=== PATIENT | male | born 1975 | race Caucasian/White ===

== ENCOUNTER 2016-09-10 10:02 | Inpatient (IN) | payer OTHER ==
[2016-09-10 10:23] VITALS: BMI 26.6
--- NOTE | 2016-09-10 10:55 | HP ---
COWS - Scale Resting Pulse: 0= [place] 80 or Below Sweatin= Chills/Flushing Restless Observation: 0= Sits Still Pupil Size: 0= Normal to Room Light Bone or Joint Aches: 2= Severe Diffuse Aches Runny Nose/ Eye Tearin= Nasal Congestion GI Upset > 30mins: 3= Vomiting/Diarrhea Tremor Observation: 1= Tremor [place], Not Seen Yawning Observation: 1= 1-2x During Session Anxiety or Irritability: 2=Irritable/Anxious Goose Flesh Skin: 0=Smooth Skin COWS Score: 11 Admission ROS S - HPI Chief Complaint: I want to straighten out my life, I don't want to do drugs anymore. Allergies/Adverse Reactions: Allergies Allergy/AdvReac Type Severity Reaction Status Date / Time No Known Allergies Allergy Verified 09/10/16 10:52 History of Present Illness: 40 yo gentleman here for detox from heroin, first time in detox. Exam Limitations: Clinical Condition - Ebola screening Have you traveled outside of the country in the last 21 days: No Have you had contact with anyone from an Ebola affected area: No Have you been sick,other than usual withdrawal symptoms: No Do you have a fever: No - Review of Systems Constitutional: Malaise, Changes in sleep, Weakness EENT: reports: Nose Congestion Respiratory: reports: No Symptoms reported Cardiac: reports: No Symptoms Reported GI: reports: Nausea, Poor Appetite : reports: Dysuria Musculoskeletal: reports: Back Pain, Joint Pain, Muscle Pain Integumentary: reports: No Symptoms Reported Neuro: reports: Tremors Endocrine: reports: No Symptoms Reported Hematology: reports: No Symptoms Reported Psychiatric: reports: Judgement Intact, Mood/Affect Appropiate, Orientated x3, Anxious Other Systems: Reviewed and Negative Patient History - Patient Medical History Hx Anemia: No Hx Asthma: Yes Hx Chronic Obstructive Pulmonary Disease (COPD): No Hx Cancer: No Hx Cardiac Disorders: No Hx Congestive Heart Failure: No Hx Hypertension: No Hx Hypercholesterolemia: No Hx Pacemaker: No HX Cerebrovascular Accident: No Hx Seizures: No Hx Diabetes: No Hx Gastrointestinal Disorders: No Hx Liver Disease: No Hx Genitourinary Disorders: No Hx Sexually Transmitted Disorders: No Hx Renal Disease (ESRD): Yes (hx renal calculi) Hx Thyroid Disease: No Hx Human Immunodeficiency Virus (HIV): No Hx Hepatitis C: No Hx Depression: No Hx Suicide Attempt: No Hx Bipolar Disorder: No Hx Schizophrenia: No - Patient Surgical History Past Surgical History: No - PPD History Previous Implant?: Yes Documented Results: Negative w/o proof PPD to be Administered?: Yes - Reproductive History Patient is a Female of Child Bearing Age (11 -55 yrs old): No (male) - Smoking Cessation Smoking history: Current every day smoker Have you smoked in the past 12 months: Yes Aproximately how many cigarettes per day: 3 Hx Chewing Tobacco Use: No Initiated information on smoking cessation: Yes 'Breaking Loose' booklet given: 09/10/16 (give on floor) - Substance & Tx. History Hx Alcohol Use: No Hx Substance Use: Yes Substance Use Type: Heroin, Marijuana Hx Substance Use Treatment: No - Substances Abused Heroin Route: Inhalation Frequency: Daily Amount used: $20 Age of first use: 39 Date of Last Use: 09/09/16 Marijuana/Hashish Route: Smoking Frequency: 1-2 times per week Amount used: $20 Age of first use: 16 Date of Last Use: 09/06/16 Family Disease History - Family Disease History Family Disease History: [place]: Mother (alive, ), Other: Father (, etoh, drugs), Mother, Brother (1 - living, healthy), Sister (2 - living, ), Son (2 - living ,healthy), Daughter (1 -living , healthy) Admission Physical Exam S - Vital Signs Vital Signs: Vital Signs - 24 hr 09/10/16 10:14 Temperature 97.4 F L Pulse Rate 60 Respiratory 20 Rate Blood Pressure 139/85 - Physical General Appearance: Yes: Nourished, Appropriately Dressed, Moderate Distress, Anxious HEENTM: Yes: Hearing grossly Normal, Normocephalic, Normal Voice, Pharynx Normal Respiratory: Yes: Normal Breath Sounds, No Respiratory Distress Neck: Yes: No masses,lesions,Nodules, Supple Breast: Yes: Breast Exam Deferred Cardiology: Yes: Regular Rhythm, Regular Rate Abdominal: Yes: Soft Genitourinary: Yes: Within Normal Limits Back: Yes: Normal Inspection Musculoskeletal: Yes: full range of Motion, Gait Steady Extremities: Yes: Normal Inspection, Normal Range of Motion Neurological: Yes: Fully Oriented, Alert, Normal Mood/Affect, Normal Response Integumentary: Yes: Normal Color, Warm Lymphatic: Yes: Within Normal Limits - Diagnostic (1) Uncomplicated opioid dependence Current Visit: Yes Status: Chronic (2) Asthma Current Visit: Yes Status: Chronic Qualifiers: Asthma severity: mild intermittent Asthma complication type: uncomplicated Qualified Code(s): J45.20 - Mild intermittent asthma, uncomplicated (3) Cannabis dependence Current Visit: Yes Status: Chronic Cleared for Admission [facility] - Detox or Rehab [facility] Level of Care: Medically Managed Detox Regimen/Protocol: Methadone S Breath Alcohol Content Breath Alcohol Content: 0 Urine Drug Screen - Results Drug Screen Negative: No Urine Drug Screen Results: THC-Marijuana, OPI-Opiates
[2016-09-10] MEDS ORDERED: NICOTINE POLACRILEX 4 MG GUM BUC PRN (11:06)
[2016-09-10] MEDS ORDERED: MAGNESIUM HYDROX 2400MG/30ML ORAL SUSPENSION 30 ML CUP PO PRN (11:06)
[2016-09-10] MEDS ORDERED: IBUPROFEN 400 MG TABLET (FP) PO PRN (11:06)
[2016-09-10] MEDS ORDERED: diazePAM 5 MG TABLET PO PRN (11:06)
[2016-09-10] MEDS ORDERED: MENTHOL/PHENOL 1 EACH UD MM PRN (11:06)
[2016-09-10] MEDS ORDERED: ACETAMINOPHEN 325 MG TABLET (FP) PO PRN (11:06)
[2016-09-10] MEDS ORDERED: hydrOXYzine PAMOATE 50 MG CAPSULE (FP) PO PRN (11:06)
[2016-09-10] MEDS ORDERED: diphenhydrAMINE HCL 50 MG CAPSULE PO PRN (11:06)
[2016-09-10] MEDS ORDERED: MAGNESIUM CITRATE 300 ML BOTTLE PO PRN (11:06)
[2016-09-10] MEDS ORDERED: P-EPHED 60MG/TRIPROLIDI 2.5MG TABLET PO PRN (11:06)
[2016-09-10] MEDS ORDERED: guaiFENesin/D-METHORPHAN HB 10 ML UNIT-DOSE CUPS PO PRN (11:06)
[2016-09-10] MEDS ORDERED: MAG HYDROX/AL HYDROX/SIMETH 30 ML UNIT-DOSE CUP PO PRN (11:06)
[2016-09-10] MEDS ORDERED: LOPERAMIDE HCL 2 MG CAPSULE PO PRN (11:06)
[2016-09-10] MEDS ORDERED: METHADONE HCL 10 MG TABLET (FOR DETOX USE ONLY) PO ONE ×2 (12:30→23:00)
[2016-09-10] MEDS: ALBUTEROL SO4 6.7 GM HFA INHALER IH PRN ×2 (14:01→22:37)
[2016-09-10 18:21] LABS: URINE APPEARANCE CLEAR; URINE BILIRUBIN NEGATIVE (NEGATIVE); URINE BLOOD NEGATIVE (NEGATIVE); URINE COLOR YELLOW; URINE GLUCOSE (UA) NEGATIVE (NEGATIVE); URINE KETONE NEGATIVE (NEGATIVE); URINE LEUK ESTERASE NEGATIVE (NEGATIVE); URINE NITRITE NEGATIVE (NEGATIVE); URINE PROTEIN NEGATIVE (NEGATIVE); URINE UROBILINOGEN NEGATIVE mg/dL (0.2-1.0)
[2016-09-10] MEDS ORDERED: THIAMINE HCL 100 MG TABLET (FP) PO SCH (22:00)
[2016-09-10 23:08] VITALS: PULSE 72
--- NOTE | 2016-09-11 08:10 | EKG ---
Test Reason : Blood Pressure : / mmHG Vent. Rate : 064 BPM Atrial Rate : 064 BPM P-R Int : 136 ms QRS Dur : 094 ms QT Int : 402 ms P-R-T Axes : 068 056 032 degrees QTc Int : 414 ms NORMAL SINUS RHYTHM MINIMAL VOLTAGE CRITERIA FOR LVH, MAY BE NORMAL VARIANT BORDERLINE ECG NO PREVIOUS ECGS AVAILABLE Confirmed by CHEIKH MOORE MD ([id number]) on 09/11/2016 8:09:58 AM Referred By: Confirmed By:CHEIKH MOORE MD
[2016-09-11 09:22] LABS: MCH 30.7 pg (25.7-33.7); MCHC 33.1 g/dl (32.0-35.9); MEAN CELL VOLUME 92.9 fl (80-96); MEAN PLT VOLUME 9.1 fl (7.5-11.1); PLATELET COUNT 196 K/MM3 (134-434); RDW 13.6 % (11.9-15.9)
[2016-09-11 09:59] LABS: ALBUMIN 3.3 g/dl (3.4-5.0); ALK PHOS 60 U/L (45-117); ANION GAP 6 (8-16); BILIRUBIN,TOTAL 0.5 mg/dL (0.2-1.0); CALCIUM 8.6 mg/dL (8.5-10.1); CO2 27 mmol/L (21-32); CREATININE 0.9 mg/dL (0.7-1.3); GLUCOSE,RANDOM 84 mg/dL (74-106); SGOT/AST 11 U/L (15-37); SGPT/ALT 21 U/L (12-78); TOT PROT 6.2 g/dl (6.4-8.2)
[2016-09-11] MEDS ORDERED: PRENATAL VITAMINS W/ FOLIC ACID TABLET (FP) PO SCH (10:00)
[2016-09-11] MEDS ORDERED: METHADONE HCL 10 MG TABLET (FOR DETOX USE ONLY) PO ONE (10:00)
[2016-09-11 10:28] VITALS: BP 129/80; TEMP 98.2
--- NOTE | 2016-09-11 11:15 | PN ---
S COWS - Scale Resting Pulse: 0= [place] 80 or Below Sweatin= Chills/Flushing Restless Observation: 3= Extraneous Movement Pupil Size: 2= Moderately Dilated Bone or Joint Aches: 2= Severe Diffuse Aches Runny Nose/ Eye Tearin= Runny Nose/Eyes GI Upset > 30mins: 2= Nausea/Diarrhea Tremor Observation of Outstretched Hands: 2= Slight Tremor Visible Yawning Observation: 2= >3x During Session Anxiety or Irritability: 2=Irritable/Anxious Goose Flesh Skin: 0=Smooth Skin COWS Score: 18 BHS Progress Note (SOAP) Subjective: ALERT,IRRITABLE,ANXIOUS,INTERRUPTED SLEEP,TREMOR,PAIN IN THE BODY AND BACK Objective: 09/11/16 11:12 Vital Signs Temperature 98.2 F 09/11/16 10:28 Pulse Rate 72 09/11/16 10:28 Respiratory Rate 16 09/11/16 10:28 Blood Pressure 129/80 09/11/16 10:28 O2 Sat by Pulse Oximetry (%) EKG NSR Laboratory Last Values WBC 9.0 K/mm3 (4.0-10.0) 09/11/16 07:40 RBC 4.39 M/mm3 (4.00-5.60) 09/11/16 07:40 Hgb 13.5 GM/dL (11.7-16.9) 09/11/16 07:40 Hct 40.8 % (35.4-49) 09/11/16 07:40 MCV 92.9 fl (80-96) 09/11/16 07:40 MCH 30.7 pg (25.7-33.7) 09/11/16 07:40 MCHC 33.1 g/dl (32.0-35.9) 09/11/16 07:40 RDW 13.6 % (11.9-15.9) 09/11/16 07:40 Plt Count 196 K/MM3 (134-434) 09/11/16 07:40 MPV 9.1 fl (7.5-11.1) 09/11/16 07:40 Sodium 139 mmol/L (136-145) 09/11/16 07:40 Potassium 4.0 mmol/L (3.5-5.1) 09/11/16 07:40 Chloride 106 mmol/L (98-107) 09/11/16 07:40 Carbon Dioxide 27 mmol/L (21-32) 09/11/16 07:40 Anion Gap 6 (8-16) L 09/11/16 07:40 BUN 15 mg/dL (7-18) 09/11/16 07:40 Creatinine 0.9 mg/dL (0.7-1.3) 09/11/16 07:40 Creat Clearance w eGFR > 60 (>60) 09/11/16 07:40 Random Glucose 84 mg/dL (74-106) 09/11/16 07:40 Calcium 8.6 mg/dL (8.5-10.1) 09/11/16 07:40 Total Bilirubin 0.5 mg/dL (0.2-1.0) 09/11/16 07:40 AST 11 U/L (15-37) L 09/11/16 07:40 ALT 21 U/L (12-78) 09/11/16 07:40 Alkaline Phosphatase 60 U/L (45-117) 09/11/16 07:40 Total Protein 6.2 g/dl (6.4-8.2) L 09/11/16 07:40 Albumin 3.3 g/dl (3.4-5.0) L 09/11/16 07:40 Urine Color Yellow 09/10/16 14:27 Urine Appearance Clear 09/10/16 14:27 Urine pH 5.0 (5.0-8.0) 09/10/16 14:27 Ur Specific [place] >= 1.030 (1.005-1.025) H 09/10/16 14:27 Urine Protein Negative (NEGATIVE) 09/10/16 14:27 Urine Glucose (UA) Negative (NEGATIVE) 09/10/16 14:27 Urine Ketones Negative (NEGATIVE) 09/10/16 14:27 Urine Blood Negative (NEGATIVE) 09/10/16 14:27 Urine Nitrite Negative (NEGATIVE) 09/10/16 14:27 Urine Bilirubin Negative (NEGATIVE) 09/10/16 14:27 Urine Urobilinogen Negative mg/dL (0.2-1.0) 09/10/16 14:27 Ur Leukocyte Esterase Negative (NEGATIVE) 09/10/16 14:27 Assessment: 09/11/16 11:14 WITHDRAWAL SYMPTOM Plan: CONTINUE DETOX
--- NOTE | 2016-09-11 11:18 | DS ---
[facility] Detox Discharge Summary Admission Date: 09/10/16 Discharge Date: 09/11/16 - History Present History: Cannabis Dependence, Opioid Dependence Additional Comments: PATIENT DID NOT WANT TO COMPLETE TREATMENT,SEEN BY COUNSELOR,SIGNED RELEASE AMA Pertinent Past History: ASTHMA - Physical Exam Results Vital Signs: Vital Signs Temperature 98.2 F 09/11/16 10:28 Pulse Rate 72 09/11/16 10:28 Respiratory Rate 16 09/11/16 10:28 Blood Pressure 129/80 09/11/16 10:28 O2 Sat by Pulse Oximetry (%) Pertinent Admission Physical Exam Findings: WITHDRAWAL SYMPTOM - Medication Discharge Medications: Ambulatory Orders Albuterol Sulfate Inhaler - [Ventolin Hfa Inhaler -] 2 inh PO Q4H PRN 09/10/16 - Diagnosis (1) Asthma Current Visit: Yes Status: Chronic Qualifiers: Asthma severity: mild intermittent Asthma complication type: uncomplicated Qualified Code(s): J45.20 - Mild intermittent asthma, uncomplicated (2) Cannabis dependence Current Visit: Yes Status: Chronic (3) Uncomplicated opioid dependence Current Visit: Yes Status: Chronic - AMA Did Patient Leave Against Medical Advice: Yes
[2016-09-11 12:51] LABS: HIV 1 & 2 AB NEGATIVE; HIV 1 AGp24 NEGATIVE
[2016-09-12] MEDS ORDERED: METHADONE HCL 5 MG TABLET (FOR DETOX USE ONLY) PO ONE (10:00)
[2016-09-13] MEDS ORDERED: METHADONE HCL 5 MG TABLET (FOR DETOX USE ONLY) PO ONE (10:00)
[2016-09-14] MEDS ORDERED: METHADONE HCL 10 MG TABLET (FOR DETOX USE ONLY) PO ONE (10:00)
[2016-09-15] MEDS ORDERED: METHADONE HCL 5 MG TABLET (FOR DETOX USE ONLY) PO ONE (06:00)
== END 2016-09-11 11:38 | disposition left against medical advice (07) | DRG 770 ==
LOC: YASAS 10:02 → Y6N 11:39
PROVIDERS: ADMIT Internal Medicine; ATTEND Internal Medicine
PROC: HZ2ZZZZ Detoxification Services for Substance Abuse Treatment (ICD-10-PCS; principal; 2016-09-10)
DX: F11.23 Opioid dependence with withdrawal (principal); F12.20 Cannabis dependence, uncomplicated; F17.210 Nicotine dependence, cigarettes, uncomplicated; J45.20 Mild intermittent asthma, uncomplicated; Z87.442 Personal history of urinary calculi
CPT/HCPCS: 36415; 80053; 81003; 85027; 86593; 86803; 87389; 93005; 93010

== ENCOUNTER 2017-02-19 11:12 | Inpatient (IN) | payer OTHER ==
[2017-02-19 13:06] VITALS: BMI 25.1
--- NOTE | 2017-02-19 13:41 | HP ---
COWS - Scale Resting Pulse: 2= [place] 101-120 Sweatin=Flushed/Facial Moisture Restless Observation: 3= Extraneous Movement Pupil Size: 2= Moderately Dilated Bone or Joint Aches: 2= Severe Diffuse Aches Runny Nose/ Eye Tearin= Runny Nose/Eyes GI Upset > 30mins: 3= Vomiting/Diarrhea Tremor Observation: 2= Slight Tremor Visible Yawning Observation: 2= >3x During Session Anxiety or Irritability: 2=Irritable/Anxious Goose Flesh Skin: 0=Smooth Skin COWS Score: 22 Admission ROS S - HPI Chief Complaint: I NEED HELP TO STOP USING HEROIN Allergies/Adverse Reactions: Allergies Allergy/AdvReac Type Severity Reaction Status Date / Time No Known Allergies Allergy Verified 09/10/16 10:52 History of Present Illness: THIS 41 YEARS OLD MALE WITH HEROIN DEPENDENCE,WITHDRAWAL SYMPTOM,SEEKING DETOX, LAST TREATMENT 09/10/16 TO 09/11/16 NOT COMPLETED SYNCOPE WEIGHT LOSS NO SIGNIFICANT PERIOD OF SOBRIETY Exam Limitations: No Limitations - Ebola screening Have you traveled outside of the country in the last 21 days: No Have you had contact with anyone from an Ebola affected area: No Have you been sick,other than usual withdrawal symptoms: No Do you have a fever: No - Review of Systems Constitutional: Diaphoresis, Loss of Appetite, Malaise, Night Sweats, Changes in sleep, Weakness, Unintentional Wgt. Loss EENT: reports: Tearing, Nose Congestion Respiratory: reports: No Symptoms reported Cardiac: reports: Palpitations GI: reports: Diarrhea, Nausea, Vomiting, Abdominal cramping Musculoskeletal: reports: Back Pain, Joint Pain, Muscle Pain, Joint Stiffness Integumentary: reports: Dryness Neuro: reports: Headache, Tremors Endocrine: reports: No Symptoms Reported Hematology: reports: No Symptoms Reported Psychiatric: reports: No Sypmtoms Reported Patient History - Patient Medical History Hx Anemia: No Hx Asthma: Yes Hx Chronic Obstructive Pulmonary Disease (COPD): No Hx Cancer: No Hx Cardiac Disorders: No Hx Congestive Heart Failure: No Hx Hypertension: No Hx Hypercholesterolemia: No Hx Pacemaker: No HX Cerebrovascular Accident: No Hx Seizures: No Hx Diabetes: No Hx Gastrointestinal Disorders: No Hx Liver Disease: No Hx Genitourinary Disorders: No Hx Sexually Transmitted Disorders: No Hx Renal Disease (ESRD): Yes (hx renal calculi S/P LITHOTRYSY 2016) Hx Thyroid Disease: No Hx Human Immunodeficiency Virus (HIV): No Hx Hepatitis C: No Hx Depression: No Hx Suicide Attempt: No Hx Bipolar Disorder: No Hx Schizophrenia: No Other Medical History: NO SUICIDL,NO HOMICIDAL - Patient Surgical History Past Surgical History: No - PPD History Previous Implant?: Yes Documented Results: Negative w/o proof Date: 09/12/16 PPD to be Administered?: Yes - Smoking Cessation Smoking history: Current every day smoker Have you smoked in the past 12 months: Yes Aproximately how many cigarettes per day: 3 Hx Chewing Tobacco Use: No Initiated information on smoking cessation: Yes 'Breaking Loose' booklet given: 02/19/17 - Substance & Tx. History Hx Alcohol Use: No Hx Substance Use: Yes Substance Use Type: Heroin, Marijuana Hx Substance Use Treatment: Yes (09/10/16 TO 09/11/16) - Substances Abused Heroin Route: Inhalation Frequency: Daily Amount used: 2BAGS Age of first use: 39 Date of Last Use: 02/18/17 Marijuana/Hashish Route: Smoking Frequency: 1-2 times per week Amount used: 10$ Age of first use: 10 Date of Last Use: 02/16/17 Family Disease History - Family Disease History Family Disease History: [place]: Mother (alive, ), Other: Father (, etoh, drugs), Mother, Brother (1 - living, healthy), Sister (2 - living, ), Son (2 - living ,healthy), Daughter (1 -living , healthy) Admission Physical Exam S - Vital Signs Vital Signs: Vital Signs - 24 hr 02/19/17 13:05 Temperature 98.8 F Pulse Rate 108 H Respiratory 20 Rate Blood Pressure 151/91 - Physical General Appearance: Yes: Moderate Distress, Tremorous, Irritable, Sweating, Anxious HEENTM: Yes: Normal ENT Inspection, Pharynx Normal, Pale Conjunctivae L Respiratory: Yes: Lungs Clear, Normal Breath Sounds, No Respiratory Distress Neck: Yes: Within Normal Limits Breast: Yes: Within Normal Limits Cardiology: Yes: Within Normal Limits, Regular Rhythm, Regular Rate, S1, S2 Abdominal: Yes: Within Normal Limits, Normal Bowel Sounds Genitourinary: Yes: Within Normal Limits Back: Yes: Within Normal Limits Musculoskeletal: Yes: Back pain, Joint Stiffness, Muscle Pain Extremities: Yes: Within Normal Limits, Normal Range of Motion, Tremors Neurological: 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: 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, Fully Oriented, Alert, Motor Strength 5/5 Integumentary: Yes: Dry Lymphatic: Yes: Within Normal Limits - Diagnostic (1) Opioid dependence with withdrawal Current Visit: Yes Status: Acute (2) Asthma Current Visit: No Status: Chronic Qualifiers: Asthma severity: mild intermittent Asthma complication type: uncomplicated Qualified Code(s): J45.20 - Mild intermittent asthma, uncomplicated (3) Cannabis dependence Current Visit: No Status: Chronic (4) Weight loss Current Visit: Yes Status: Acute Cleared for Admission [facility] - Detox or Rehab [facility] Level of Care: Medically Managed Detox Regimen/Protocol: Methadone [facility] Breath Alcohol Content Breath Alcohol Content: 0 Urine Drug Screen - Results Drug Screen Negative: No Urine Drug Screen Results: THC-Marijuana, OPI-Opiates
[2017-02-19] MEDS ORDERED: P-EPHED 60MG/TRIPROLIDI 2.5MG TABLET PO PRN (13:50)
[2017-02-19] MEDS ORDERED: METHADONE HCL 10 MG TABLET (FOR DETOX USE ONLY) PO ONE ×2 (13:50→23:00)
[2017-02-19] MEDS ORDERED: MENTHOL/PHENOL 1 EACH UD MM PRN (13:50)
[2017-02-19] MEDS ORDERED: LOPERAMIDE HCL 2 MG CAPSULE PO PRN (13:50)
[2017-02-19] MEDS ORDERED: ACETAMINOPHEN 325 MG TABLET (FP) PO PRN (13:50)
[2017-02-19] MEDS ORDERED: IBUPROFEN 400 MG TABLET (FP) PO PRN (13:50)
[2017-02-19] MEDS ORDERED: MAGNESIUM CITRATE 300 ML BOTTLE PO PRN (13:50)
[2017-02-19] MEDS ORDERED: MAGNESIUM HYDROX 2400MG/30ML ORAL SUSPENSION 30 ML CUP PO PRN (13:50)
[2017-02-19] MEDS ORDERED: guaiFENesin/D-METHORPHAN HB 10 ML UNIT-DOSE CUPS PO PRN (13:50)
[2017-02-19] MEDS ORDERED: ALBUTEROL SO4 18 GM HFA INHALER IH PRN (13:54)
[2017-02-19] MEDS: diazePAM 5 MG TABLET PO PRN ×2 (15:47→22:03)
[2017-02-19] MEDS ORDERED: cloNIDine HCL 0.1 MG TABLET PO ONE (15:48)
[2017-02-19 16:30] LABS: URINE APPEARANCE SLCLOUDY; URINE BILIRUBIN NEGATIVE (NEGATIVE); URINE BLOOD NEGATIVE (NEGATIVE); URINE COLOR AMBER; URINE GLUCOSE (UA) NEGATIVE (NEGATIVE); URINE KETONE TRACE (NEGATIVE); URINE LEUK ESTERASE NEGATIVE (NEGATIVE); URINE NITRITE NEGATIVE (NEGATIVE)
[2017-02-19 16:33] LABS: URINE PROTEIN 1+ (NEGATIVE)
[2017-02-19 16:45] LABS: EPI CELLS RARE /HPF (FEW); URINE MUCUS MANY
[2017-02-19] MEDS: MAG HYDROX/AL HYDROX/SIMETH 30 ML UNIT-DOSE CUP PO PRN (20:20)
[2017-02-19] MEDS: cloNIDine HCL 0.1 MG TABLET PO SCH (22:03)
[2017-02-19] MEDS: THIAMINE HCL 100 MG TABLET (FP) PO SCH (22:03)
[2017-02-20] MEDS: diazePAM 5 MG TABLET PO PRN ×3 (06:25→23:45)
[2017-02-20 09:59] LABS: HEMATOCRIT 43.8 % (35.4-49); HEMOGLOBIN 14.2 GM/dL (11.7-16.9); MCH 30.1 pg (25.7-33.7); MCHC 32.5 g/dl (32.0-35.9); MEAN CELL VOLUME 92.9 fl (80-96); MEAN PLT VOLUME 8.3 fl (7.5-11.1); PLATELET COUNT 321 K/MM3 (134-434); RBC 4.72 M/mm3 (4.00-5.60); RDW 13.5 % (11.9-15.9); WHITE BLOOD COUNT 9.1 K/mm3 (4.0-10.0)
[2017-02-20] MEDS ORDERED: METHADONE HCL 10 MG TABLET (FOR DETOX USE ONLY) PO ONE (10:00)
[2017-02-20] MEDS: cloNIDine HCL 0.1 MG TABLET PO SCH ×2 (10:14→22:06)
[2017-02-20] MEDS: PRENATAL VITAMINS W/ FOLIC ACID TABLET (FP) PO SCH (10:14)
[2017-02-20 10:24] LABS: ANION GAP 9 (8-16); CHLORIDE 98 mmol/L (98-107); CO2 28 mmol/L (21-32); SODIUM 135 mmol/L (136-145)
[2017-02-20 10:30] LABS: ALBUMIN 3.7 g/dl (3.4-5.0); ALK PHOS 80 U/L (45-117); BILIRUBIN,TOTAL 0.7 mg/dL (0.2-1.0); BLOOD UREA NITROGEN 20 mg/dL (7-18); CREATININE 1.1 mg/dL (0.7-1.3); GLUCOSE,RANDOM 97 mg/dL (74-106); SGOT/AST 12 U/L (15-37); SGPT/ALT 21 U/L (12-78); TOT PROT 7.2 g/dl (6.4-8.2)
--- NOTE | 2017-02-20 10:38 | PN ---
BHS COWS - Scale Resting Pulse: 0= [place] 80 or Below Sweatin= Chills/Flushing Restless Observation: 3= Extraneous Movement Pupil Size: 1= Pupils >than Normal Bone or Joint Aches: 2= Severe Diffuse Aches Runny Nose/ Eye Tearin= Runny Nose/Eyes GI Upset > 30mins: 2= Nausea/Diarrhea Tremor Observation of Outstretched Hands: 2= Slight Tremor Visible Yawning Observation: 1= 1-2x During Session Anxiety or Irritability: 2=Irritable/Anxious Goose Flesh Skin: 0=Smooth Skin COWS Score: 16 S Progress Note (SOAP) Subjective: ALERT,IRRITABLE,ANXIOUS,INTERRUPTED SLEEP,TREMOR,PAIN IN THE BODY AND BACK Objective: 02/20/17 10:39 Vital Signs Temperature 97.7 F 02/20/17 06:00 Pulse Rate 69 02/20/17 06:00 Respiratory Rate 18 02/20/17 06:00 Blood Pressure 129/80 02/20/17 06:00 O2 Sat by Pulse Oximetry (%) EKG NSR,LVH NO CHEST PAIN,NO SO,NO DIZZINESS 02/20/17 10:40 Laboratory Last Values WBC 9.1 K/mm3 (4.0-10.0) 02/20/17 07:30 RBC 4.72 M/mm3 (4.00-5.60) 02/20/17 07:30 Hgb 14.2 GM/dL (11.7-16.9) 02/20/17 07:30 Hct 43.8 % (35.4-49) 02/20/17 07:30 MCV 92.9 fl (80-96) 02/20/17 07:30 MCH 30.1 pg (25.7-33.7) 02/20/17 07:30 MCHC 32.5 g/dl (32.0-35.9) 02/20/17 07:30 RDW 13.5 % (11.9-15.9) 02/20/17 07:30 Plt Count 321 K/MM3 (134-434) D 02/20/17 07:30 MPV 8.3 fl (7.5-11.1) 02/20/17 07:30 Urine Color [place] 02/19/17 15:43 Urine Appearance Slcloudy 02/19/17 15:43 Urine pH 5.0 (5.0-8.0) 02/19/17 15:43 Ur Specific [place] 1.029 (1.001-1.035) 02/19/17 15:43 Urine Protein 1+ (NEGATIVE) H 02/19/17 15:43 Urine Glucose (UA) Negative (NEGATIVE) 02/19/17 15:43 Urine Ketones Trace (NEGATIVE) H 02/19/17 15:43 Urine Blood Negative (NEGATIVE) 02/19/17 15:43 Urine Nitrite Negative (NEGATIVE) 02/19/17 15:43 Urine Bilirubin Negative (NEGATIVE) 02/19/17 15:43 Urine Urobilinogen 2.0 mg/dL (0.2-1.0) 02/19/17 15:43 Ur Leukocyte Esterase Negative (NEGATIVE) 02/19/17 15:43 Urine WBC (Auto) 2 /hpf (3-5) 02/19/17 15:43 Urine RBC (Auto) 6 /hpf (0-3) 02/19/17 15:43 Ur Epithelial Cells Rare /HPF (FEW) 02/19/17 15:43 Urine Mucus Many 02/19/17 15:43 02/20/17 10:41 LABS PENDING Assessment: 02/20/17 10:41 WITHDRAWAL SYMPTOM Plan: CONTINUE DETOX
--- NOTE | 2017-02-20 10:38 | EKG ---
Test Reason : Blood Pressure : / mmHG Vent. Rate : 092 BPM Atrial Rate : 092 BPM P-R Int : 128 ms QRS Dur : 088 ms QT Int : 350 ms P-R-T Axes : 061 060 023 degrees QTc Int : 432 ms NORMAL SINUS RHYTHM POSSIBLE LEFT ATRIAL ENLARGEMENT LEFT VENTRICULAR HYPERTROPHY ABNORMAL ECG WHEN COMPARED WITH ECG OF 10-SEP-2016 12:20, NO SIGNIFICANT CHANGE WAS FOUND Confirmed by WERNER VALENZUELA MD ([id number]) on 02/20/2017 10:38:29 AM Referred By: Confirmed By:WERNER VALENZUELA MD
[2017-02-20] MEDS: MAG HYDROX/AL HYDROX/SIMETH 30 ML UNIT-DOSE CUP PO PRN (14:16)
[2017-02-20] MEDS: THIAMINE HCL 100 MG TABLET (FP) PO SCH (22:06)
[2017-02-21] MEDS ORDERED: METHADONE HCL 5 MG TABLET (FOR DETOX USE ONLY) PO ONE (10:00)
[2017-02-21] MEDS: PRENATAL VITAMINS W/ FOLIC ACID TABLET (FP) PO SCH (10:08)
[2017-02-21] MEDS: cloNIDine HCL 0.1 MG TABLET PO SCH ×2 (10:08→22:13)
[2017-02-21] MEDS: diazePAM 5 MG TABLET PO PRN ×3 (11:04→22:13)
--- NOTE | 2017-02-21 11:14 | PN ---
BHS COWS - Scale Resting Pulse: 0= [place] 80 or Below Sweatin= Chills/Flushing Restless Observation: 3= Extraneous Movement Pupil Size: 0= Normal to Room Light Bone or Joint Aches: 1= Mild Discomfort Runny Nose/ Eye Tearin= None GI Upset > 30mins: 0= None Tremor Observation of Outstretched Hands: 2= Slight Tremor Visible Yawning Observation: 2= >3x During Session Anxiety or Irritability: 1=Feels Anxious/Irritable Goose Flesh Skin: 3=Piloerection COWS Score: 13 BHS Progress Note (SOAP) Subjective: Chills, tremors, anxious, tire and sleepiness Objective: 02/21/17 11:13 Last Vital Signs Temp Pulse Resp BP Pulse Ox 98.2 F 86 18 133/68 02/21/17 09:54 02/21/17 09:54 02/21/17 09:54 02/21/17 09:54 Laboratory Last Values WBC 9.1 K/mm3 (4.0-10.0) 02/20/17 07:30 RBC 4.72 M/mm3 (4.00-5.60) 02/20/17 07:30 Hgb 14.2 GM/dL (11.7-16.9) 02/20/17 07:30 Hct 43.8 % (35.4-49) 02/20/17 07:30 MCV 92.9 fl (80-96) 02/20/17 07:30 MCH 30.1 pg (25.7-33.7) 02/20/17 07:30 MCHC 32.5 g/dl (32.0-35.9) 02/20/17 07:30 RDW 13.5 % (11.9-15.9) 02/20/17 07:30 Plt Count 321 K/MM3 (134-434) D 02/20/17 07:30 MPV 8.3 fl (7.5-11.1) 02/20/17 07:30 Sodium 135 mmol/L (136-145) L 02/20/17 07:30 Potassium 4.0 mmol/L (3.5-5.1) 02/20/17 07:30 Chloride 98 mmol/L (98-107) 02/20/17 07:30 Carbon Dioxide 28 mmol/L (21-32) 02/20/17 07:30 Anion Gap 9 (8-16) 02/20/17 07:30 BUN 20 mg/dL (7-18) H D 02/20/17 07:30 Creatinine 1.1 mg/dL (0.7-1.3) D 02/20/17 07:30 Creat Clearance w eGFR > 60 (>60) 02/20/17 07:30 Random Glucose 97 mg/dL (74-106) 02/20/17 07:30 Calcium 9.0 mg/dL (8.5-10.1) 02/20/17 07:30 Total Bilirubin 0.7 mg/dL (0.2-1.0) D 02/20/17 07:30 AST 12 U/L (15-37) L 02/20/17 07:30 ALT 21 U/L (12-78) 02/20/17 07:30 Alkaline Phosphatase 80 U/L (45-117) D 02/20/17 07:30 Total Protein 7.2 g/dl (6.4-8.2) 02/20/17 07:30 Albumin 3.7 g/dl (3.4-5.0) 02/20/17 07:30 Urine Color [place] 02/19/17 15:43 Urine Appearance Slcloudy 02/19/17 15:43 Urine pH 5.0 (5.0-8.0) 02/19/17 15:43 Ur Specific [place] 1.029 (1.001-1.035) 02/19/17 15:43 Urine Protein 1+ (NEGATIVE) H 02/19/17 15:43 Urine Glucose (UA) Negative (NEGATIVE) 02/19/17 15:43 Urine Ketones Trace (NEGATIVE) H 02/19/17 15:43 Urine Blood Negative (NEGATIVE) 02/19/17 15:43 Urine Nitrite Negative (NEGATIVE) 02/19/17 15:43 Urine Bilirubin Negative (NEGATIVE) 02/19/17 15:43 Urine Urobilinogen 2.0 mg/dL (0.2-1.0) 02/19/17 15:43 Ur Leukocyte Esterase Negative (NEGATIVE) 02/19/17 15:43 Urine WBC (Auto) 2 /hpf (3-5) 02/19/17 15:43 Urine RBC (Auto) 6 /hpf (0-3) 02/19/17 15:43 Ur Epithelial Cells Rare /HPF (FEW) 02/19/17 15:43 Urine Mucus Many 02/19/17 15:43 RPR Titer Nonreactive (NONREACTIVE) 02/20/17 07:30 labs noted Assessment: 02/21/17 11:14 withdrawal symptoms Plan: Continue detox increase fluids continue to monitor
[2017-02-21] MEDS: MAG HYDROX/AL HYDROX/SIMETH 30 ML UNIT-DOSE CUP PO PRN (21:03)
[2017-02-21] MEDS: THIAMINE HCL 100 MG TABLET (FP) PO SCH (22:13)
[2017-02-22] MEDS: diazePAM 5 MG TABLET PO PRN ×2 (05:25→10:09)
--- NOTE | 2017-02-22 09:37 | PN ---
BHS Progress Note (SOAP) Subjective: interrupted sleep, sweats, Objective: 02/22/17 09:35 Last Vital Signs Temp Pulse Resp BP Pulse Ox 97.7 F 67 18 114/78 02/22/17 06:59 02/22/17 06:59 02/22/17 06:59 02/22/17 06:59 Laboratory Tests 02/19/17 02/20/17 02/20/17 15:43 07:30 07:30 WBC 9.1 RBC 4.72 Hgb 14.2 Hct 43.8 MCV 92.9 MCH 30.1 MCHC 32.5 RDW 13.5 Plt Count 321 D MPV 8.3 Sodium 135 L Potassium 4.0 Chloride 98 Carbon Dioxide 28 Anion Gap 9 BUN 20 H D Creatinine 1.1 D Creat Clearance w eGFR > 60 Random Glucose 97 Calcium 9.0 Total Bilirubin 0.7 D AST 12 L ALT 21 Alkaline Phosphatase 80 D Total Protein 7.2 Albumin 3.7 Urine Color [place] Urine Appearance Slcloudy Urine pH 5.0 Ur Specific [place] 1.029 Urine Protein 1+ H Urine Glucose (UA) Negative Urine Ketones Trace H Urine Blood Negative Urine Nitrite Negative Urine Bilirubin Negative Urine Urobilinogen 2.0 Ur Leukocyte Esterase Negative Urine WBC (Auto) 2 Urine RBC (Auto) 6 Ur Epithelial Cells Rare Urine Mucus Many RPR Titer 02/20/17 07:30 WBC RBC Hgb Hct MCV MCH MCHC RDW Plt Count MPV Sodium Potassium Chloride Carbon Dioxide Anion Gap BUN Creatinine Creat Clearance w eGFR Random Glucose Calcium Total Bilirubin AST ALT Alkaline Phosphatase Total Protein Albumin Urine Color Urine Appearance Urine pH Ur Specific [place] Urine Protein Urine Glucose (UA) Urine Ketones Urine Blood Urine Nitrite Urine Bilirubin Urine Urobilinogen Ur Leukocyte Esterase Urine WBC (Auto) Urine RBC (Auto) Ur Epithelial Cells Urine Mucus RPR Titer Nonreactive pt aox3 in nad ambulating Assessment: 02/22/17 09:36 withdrawal sx's Plan: cont. detox increase fluids
[2017-02-22] MEDS ORDERED: METHADONE HCL 5 MG TABLET (FOR DETOX USE ONLY) PO ONE (10:00)
[2017-02-22] MEDS: PRENATAL VITAMINS W/ FOLIC ACID TABLET (FP) PO SCH (10:09)
[2017-02-22] MEDS: cloNIDine HCL 0.1 MG TABLET PO SCH ×2 (10:09→22:16)
[2017-02-22] MEDS: THIAMINE HCL 100 MG TABLET (FP) PO SCH (22:16)
--- NOTE | 2017-02-23 09:44 | PN ---
BHS Progress Note (SOAP) Subjective: insomnia anxiety Objective: 02/23/17 10:36 Vital Signs Temperature 98.2 F 02/23/17 09:16 Pulse Rate 83 02/23/17 09:16 Respiratory Rate 18 02/23/17 09:16 Blood Pressure 117/75 02/23/17 09:16 O2 Sat by Pulse Oximetry (%) aaox3 ambulating no acute distress Assessment: 02/23/17 10:37 withdrawal sx Plan: continue detox increase fluids benadryl 50mg x one
[2017-02-23] MEDS ORDERED: METHADONE HCL 10 MG TABLET (FOR DETOX USE ONLY) PO ONE (10:00)
[2017-02-23] MEDS: cloNIDine HCL 0.1 MG TABLET PO SCH ×2 (10:11→22:09)
[2017-02-23] MEDS: PRENATAL VITAMINS W/ FOLIC ACID TABLET (FP) PO SCH (10:11)
[2017-02-23] MEDS ORDERED: diphenhydrAMINE HCL 50 MG CAPSULE PO PRN (11:23)
[2017-02-23] MEDS: THIAMINE HCL 100 MG TABLET (FP) PO SCH (22:09)
[2017-02-24] MEDS ORDERED: METHADONE HCL 5 MG TABLET (FOR DETOX USE ONLY) PO ONE (06:00)
[2017-02-24 06:29] VITALS: BP 111/57
--- NOTE | 2017-02-24 08:19 | DS ---
[facility] Detox Discharge Summary Admission Date: 02/19/17 Discharge Date: 02/24/17 - History Present History: Cannabis Dependence, Opioid Dependence - Physical Exam Results Vital Signs: Vital Signs Temperature 97.3 F L 02/24/17 06:00 Pulse Rate 70 02/24/17 06:00 Respiratory Rate 18 02/24/17 06:00 Blood Pressure 111/57 02/24/17 06:00 O2 Sat by Pulse Oximetry (%) - Treatment Hospital Course: Detox Protocol Followed, Detoxed Safely, Responded well, Discharged Condition Good - Medication Discharge Medications: Ambulatory Orders Albuterol Sulfate Inhaler - [Ventolin Hfa Inhaler -] 2 inh PO Q4H PRN 09/10/16 - Diagnosis (1) Opioid dependence with withdrawal Current Visit: Yes Status: Chronic (2) Weight loss Current Visit: Yes Status: Acute (3) Asthma Current Visit: No Status: Chronic Qualifiers: Asthma severity: mild Asthma persistence: intermittent Asthma complication type: uncomplicated Qualified Code(s): J45.20 - Mild intermittent asthma, uncomplicated (4) Cannabis dependence Current Visit: Yes Status: Chronic - AMA Did Patient Leave Against Medical Advice: No
[2017-02-24] MEDS: cloNIDine HCL 0.1 MG TABLET PO SCH (10:01)
[2017-02-24] MEDS: PRENATAL VITAMINS W/ FOLIC ACID TABLET (FP) PO SCH (10:01)
[2017-02-24 10:42] VITALS: PULSE 105; TEMP 98.8
== END 2017-02-24 10:15 | disposition home or self-care (01) | DRG 773 ==
LOC: YASAS 11:12 → Y6N 14:25
PROVIDERS: ADMIT Internal Medicine; ATTEND Internal Medicine
PROC: HZ2ZZZZ Detoxification Services for Substance Abuse Treatment (ICD-10-PCS; principal; 2017-02-19)
DX: F11.23 Opioid dependence with withdrawal (principal); F12.20 Cannabis dependence, uncomplicated; J45.20 Mild intermittent asthma, uncomplicated; R63.4 Abnormal weight loss; Z68.25 Body mass index [BMI] 25.0-25.9, adult; Z87.442 Personal history of urinary calculi
CPT/HCPCS: 36415; 80053; 81003; 81015; 85027; 86593; 93005; 93010

== ENCOUNTER 2017-03-30 19:13 | Inpatient (IN) | payer OTHER ==
[2017-03-30 21:06] VITALS: BMI 26.6
--- NOTE | 2017-03-30 21:58 | HP ---
COWS - Scale Resting Pulse: 0= CT 80 or Below Sweatin=Flushed/Facial Moisture Restless Observation: 0= Sits Still Pupil Size: 1= Pupils >than Normal Bone or Joint Aches: 4=Acute Joint/Muscle Pain Runny Nose/ Eye Tearin= Runny Nose/Eyes GI Upset > 30mins: 3= Vomiting/Diarrhea (vomiting x 6, diarrhea x 4) Tremor Observation: 2= Slight Tremor Visible Yawning Observation: 1= 1-2x During Session Anxiety or Irritability: 4=Extreme Anxiety Goose Flesh Skin: 0=Smooth Skin COWS Score: 19 Admission ROS S - [facility] Chief Complaint: Opioid withdrawal symptoms Allergies/Adverse Reactions: Allergies Allergy/AdvReac Type Severity Reaction Status Date / Time No Known Allergies Allergy Verified 02/19/17 14:42 History of Present Illness: 41 years old male with a long history of opioid dependence is seeking admission to detox. Patient has been in previous detox and reports insignificant period of sobriety. Patient has past medical history of asthma, renal calculi and HTN. Denies suicide attempt and suicidal ideation at this time. Exam Limitations: No Limitations - Ebola screening Have you traveled outside of the country in the last 21 days: No Have you had contact with anyone from an Ebola affected area: No Have you been sick,other than usual withdrawal symptoms: No - Review of Systems Constitutional: Chills, Loss of Appetite, Night Sweats, Changes in sleep, Unexplained wgt Loss (reports 10lbs weight loss in 3 months) EENT: reports: Nose Congestion Respiratory: reports: No Symptoms reported Cardiac: reports: No Symptoms Reported GI: reports: No Symptoms Reported : reports: No Symptoms Reported Musculoskeletal: reports: Back Pain, Muscle Pain, Muscle Weakness Integumentary: reports: Flushing Neuro: reports: Tingling, Tremors Endocrine: reports: No Symptoms Reported Hematology: reports: No Symptoms Reported Psychiatric: reports: Orientated x3, Anxious Other Systems: Reviewed and Negative Patient History - Patient Medical History Hx Anemia: No Hx Asthma: Yes Hx Chronic Obstructive Pulmonary Disease (COPD): No Hx Cancer: No Hx Cardiac Disorders: No Hx Congestive Heart Failure: No Hx Hypertension: Yes Hx Hypercholesterolemia: No Hx Pacemaker: No HX Cerebrovascular Accident: No Hx Seizures: No Hx Diabetes: No Hx Gastrointestinal Disorders: No Hx Liver Disease: No Hx Genitourinary Disorders: No Hx Sexually Transmitted Disorders: No Hx Renal Disease (ESRD): Yes (hx renal calculi S/P LITHOTRYSY 2017) Hx Thyroid Disease: No Hx Human Immunodeficiency Virus (HIV): No Hx Hepatitis C: No Hx Depression: No Hx Suicide Attempt: No Hx Bipolar Disorder: No Hx Schizophrenia: No - Patient Surgical History Past Surgical History: No Hx Neurologic Surgery: No Hx Cataract Extraction: No Hx Cardiac Surgery: No Hx Lung Surgery: No Hx Abdominal Surgery: No Hx Appendectomy: No Hx Cholecystectomy: No Hx Genitourinary Surgery: No Hx Section: No Hx Orthopedic Surgery: No Anesthesia Reaction: No - PPD History Previous Implant?: Yes Documented Results: Negative w/proof Implanted On Prior [facility] Admission?: Yes Date: 02/21/17 PPD to be Administered?: No - Reproductive History Patient is a Female of Child Bearing Age (11 -55 yrs old): No (MALE) - Smoking Cessation Smoking history: Current every day smoker Have you smoked in the past 12 months: Yes Aproximately how many cigarettes per day: 4 Hx Chewing Tobacco Use: No Initiated information on smoking cessation: Yes 'Breaking Loose' booklet given: 03/30/17 - Substances Abused Heroin Route: Inhalation Frequency: Daily Amount used: 2 bags Age of first use: 33 Date of Last Use: 03/30/17 Family Disease History - Family Disease History Family Disease History: CA: Mother (Pancreatic Ca - alive, ), Other: Father ( , etoh, drugs), Mother, Brother (1 - living, healthy), Sister (2 - living, ), Son (2 - living ,healthy), Daughter (1 -living , healthy) Admission Physical Exam S - Vital Signs Vital Signs: Vital Signs - 24 hr 03/30/17 21:04 Temperature 97.2 F L Pulse Rate 70 Respiratory 18 Rate Blood Pressure 116/68 - Physical General Appearance: Yes: Moderate Distress, Tremorous, Irritable, Sweating, Anxious HEENTM: Yes: Nasal Congestion Respiratory: Yes: Lungs Clear, Normal Breath Sounds, No Respiratory Distress Neck: Yes: Supple Breast: Yes: Breast Exam Deferred Cardiology: Yes: Regular Rhythm, Regular Rate, S1, S2 Abdominal: Yes: Normal Bowel Sounds, Soft Genitourinary: Yes: Within Normal Limits Back: Yes: Normal Inspection Musculoskeletal: Yes: Back pain, Muscle Pain, Muscle weakness Extremities: Yes: Tremors Neurological: Yes: Alert, Normal Mood/Affect Integumentary: Yes: Warm Lymphatic: Yes: Within Normal Limits - Diagnostic (1) Nicotine dependence Current Visit: Yes Status: Chronic (2) HTN (hypertension) Current Visit: Yes Status: Chronic Qualifiers: Hypertension type: unspecified Qualified Code(s): I10 - Essential (primary ) hypertension (3) Asthma Current Visit: Yes Status: Chronic Qualifiers: Asthma severity: mild Asthma persistence: intermittent Asthma complication type: uncomplicated Qualified Code(s): J45.20 - Mild intermittent asthma, uncomplicated (4) Cannabis dependence Current Visit: Yes Status: Chronic (5) Opioid dependence with withdrawal Current Visit: Yes Status: Chronic BHS Breath Alcohol Content Breath Alcohol Content: 0 Urine Drug Screen - Results Drug Screen Negative: No Urine Drug Screen Results: THC-Marijuana, OPI-Opiates
[2017-03-30] MEDS ORDERED: P-EPHED 60MG/TRIPROLIDI 2.5MG TABLET PO PRN (22:07)
[2017-03-30] MEDS ORDERED: NICOTINE POLACRILEX 2 MG GUM BC PRN (22:07)
[2017-03-30] MEDS ORDERED: diazePAM 5 MG TABLET PO PRN (22:07)
[2017-03-30] MEDS ORDERED: MENTHOL/PHENOL 1 EACH UD MM PRN (22:07)
[2017-03-30] MEDS ORDERED: MAG HYDROX/AL HYDROX/SIMETH 30 ML UNIT-DOSE CUP PO PRN (22:07)
[2017-03-30] MEDS ORDERED: MAGNESIUM HYDROX 2400MG/30ML ORAL SUSPENSION 30 ML CUP PO PRN (22:07)
[2017-03-30] MEDS ORDERED: MAGNESIUM CITRATE 300 ML BOTTLE PO PRN (22:07)
[2017-03-30] MEDS ORDERED: guaiFENesin/D-METHORPHAN HB 10 ML UNIT-DOSE CUPS PO PRN (22:07)
[2017-03-30] MEDS ORDERED: LOPERAMIDE HCL 2 MG CAPSULE PO PRN (22:07)
[2017-03-30] MEDS ORDERED: METHADONE HCL 10 MG TABLET (FOR DETOX USE ONLY) PO ONE ×2 (22:07→23:00)
[2017-03-30] MEDS ORDERED: ALBUTEROL SO4 18 GM HFA INHALER IH PRN (22:09)
[2017-03-31] MEDS ORDERED: METHADONE HCL 10 MG TABLET (FOR DETOX USE ONLY) PO ONE ×4 (00:26→23:00)
[2017-03-31] MEDS: diazePAM 5 MG TABLET PO PRN ×4 (00:47→22:24)
[2017-03-31 10:16] LABS: HEMATOCRIT 45.9 % (35.4-49); HEMOGLOBIN 14.8 GM/dL (11.7-16.9); MCH 30.5 pg (25.7-33.7); MCHC 32.2 g/dl (32.0-35.9); MEAN CELL VOLUME 94.8 fl (80-96); MEAN PLT VOLUME 9.3 fl (7.5-11.1); PLATELET COUNT 224 K/MM3 (134-434); RBC 4.84 M/mm3 (4.00-5.60); RDW 14.3 % (11.9-15.9); WHITE BLOOD COUNT 6.9 K/mm3 (4.0-10.0)
[2017-03-31 10:30] LABS: CHLORIDE 101 mmol/L (98-107); POTASSIUM 3.9 mmol/L (3.5-5.1); SODIUM 139 mmol/L (136-145)
[2017-03-31] MEDS: PRENATAL VITAMINS W/ FOLIC ACID TABLET (FP) PO SCH (10:37)
[2017-03-31] MEDS: NICOTINE 14 MG/24 HOURS TOPICAL PATCH TD SCH (10:37)
[2017-03-31 10:48] LABS: ALK PHOS 76 U/L (45-117); ANION GAP 13 (8-16); BILIRUBIN,TOTAL 0.7 mg/dL (0.2-1.0); BLOOD UREA NITROGEN 23 mg/dL (7-18); CALCIUM 9.5 mg/dL (8.5-10.1); CO2 25 mmol/L (21-32); GLUCOSE,RANDOM 104 mg/dL (74-106); SGOT/AST 20 U/L (15-37); SGPT/ALT 25 U/L (12-78); TOT PROT 7.4 g/dl (6.4-8.2)
--- NOTE | 2017-03-31 11:27 | PN ---
BHS COWS - Scale Resting Pulse: 0= IN 80 or Below Sweatin=Flushed/Facial Moisture Restless Observation: 1= Difficult to Sit Still Pupil Size: 0= Normal to Room Light Bone or Joint Aches: 1= Mild Discomfort Runny Nose/ Eye Tearin= Nasal Congestion GI Upset > 30mins: 0= None Tremor Observation of Outstretched Hands: 2= Slight Tremor Visible Yawning Observation: 2= >3x During Session Anxiety or Irritability: 2=Irritable/Anxious Goose Flesh Skin: 0=Smooth Skin COWS Score: 11 BHS Progress Note (SOAP) Subjective: sweats mild shakes body aches irritable Objective: 03/31/17 11:24 Vital Signs Temperature 97.5 F L 03/31/17 07:10 Pulse Rate 56 L 03/31/17 07:10 Respiratory Rate 18 03/31/17 07:10 Blood Pressure 134/75 03/31/17 07:10 O2 Sat by Pulse Oximetry (%) Laboratory Tests 03/31/17 03/31/17 07:40 07:40 WBC 6.9 RBC 4.84 Hgb 14.8 Hct 45.9 MCV 94.8 MCH 30.5 MCHC 32.2 RDW 14.3 Plt Count 224 D MPV 9.3 D Sodium 139 Potassium 3.9 Chloride 101 Carbon Dioxide 25 Anion Gap 13 BUN 23 H Creatinine 1.0 Creat Clearance w eGFR > 60 Random Glucose 104 Calcium 9.5 Total Bilirubin 0.7 AST 20 D ALT 25 Alkaline Phosphatase 76 Total Protein 7.4 Albumin 4.0 labs pending aaox3 ambulating no acute distress Assessment: 03/31/17 11:24 withdrawal sx Plan: continue detox increase fluids labs pending
[2017-03-31] MEDS: IBUPROFEN 400 MG TABLET (FP) PO PRN (19:54)
[2017-03-31] MEDS: THIAMINE HCL 100 MG TABLET (FP) PO SCH (22:23)
[2017-04-01] MEDS: ACETAMINOPHEN 325 MG TABLET (FP) PO PRN ×2 (09:41→22:24)
[2017-04-01] MEDS: PRENATAL VITAMINS W/ FOLIC ACID TABLET (FP) PO SCH (09:42)
[2017-04-01] MEDS: diazePAM 5 MG TABLET PO PRN ×2 (09:42→22:23)
[2017-04-01] MEDS: NICOTINE 14 MG/24 HOURS TOPICAL PATCH TD SCH (09:58)
[2017-04-01] MEDS ORDERED: METHADONE HCL 10 MG TABLET (FOR DETOX USE ONLY) PO ONE (10:00)
[2017-04-01] MEDS ORDERED: METHADONE HCL 5 MG TABLET (FOR DETOX USE ONLY) PO ONE (10:00)
--- NOTE | 2017-04-01 21:48 | PN ---
BHS COWS - Scale Resting Pulse: 0= ID 80 or Below Sweatin=Flushed/Facial Moisture Restless Observation: 1= Difficult to Sit Still Pupil Size: 0= Normal to Room Light Bone or Joint Aches: 1= Mild Discomfort Runny Nose/ Eye Tearin= Nasal Congestion GI Upset > 30mins: 1= Stomach Cramp Tremor Observation of Outstretched Hands: 2= Slight Tremor Visible Yawning Observation: 1= 1-2x During Session Anxiety or Irritability: 2=Irritable/Anxious Goose Flesh Skin: 0=Smooth Skin COWS Score: 11 BHS Progress Note (SOAP) Subjective: anxious shakes sweats Objective: 04/01/17 21:47 A 7 o x 3 ambulatory steadily Vital Signs Temperature 97.9 F 04/01/17 18:15 Pulse Rate 57 L 04/01/17 18:15 Respiratory Rate 20 04/01/17 18:15 Blood Pressure 128/73 04/01/17 18:15 O2 Sat by Pulse Oximetry (%) Laboratory Last Values WBC 6.9 K/mm3 (4.0-10.0) 03/31/17 07:40 RBC 4.84 M/mm3 (4.00-5.60) 03/31/17 07:40 Hgb 14.8 GM/dL (11.7-16.9) 03/31/17 07:40 Hct 45.9 % (35.4-49) 03/31/17 07:40 MCV 94.8 fl (80-96) 03/31/17 07:40 MCH 30.5 pg (25.7-33.7) 03/31/17 07:40 MCHC 32.2 g/dl (32.0-35.9) 03/31/17 07:40 RDW 14.3 % (11.9-15.9) 03/31/17 07:40 Plt Count 224 K/MM3 (134-434) D 03/31/17 07:40 MPV 9.3 fl (7.5-11.1) D 03/31/17 07:40 Sodium 139 mmol/L (136-145) 03/31/17 07:40 Potassium 3.9 mmol/L (3.5-5.1) 03/31/17 07:40 Chloride 101 mmol/L (98-107) 03/31/17 07:40 Carbon Dioxide 25 mmol/L (21-32) 03/31/17 07:40 Anion Gap 13 (8-16) 03/31/17 07:40 BUN 23 mg/dL (7-18) H 03/31/17 07:40 Creatinine 1.0 mg/dL (0.7-1.3) 03/31/17 07:40 Creat Clearance w eGFR > 60 (>60) 03/31/17 07:40 Random Glucose 104 mg/dL (74-106) 03/31/17 07:40 Calcium 9.5 mg/dL (8.5-10.1) 03/31/17 07:40 Total Bilirubin 0.7 mg/dL (0.2-1.0) 03/31/17 07:40 AST 20 U/L (15-37) D 03/31/17 07:40 ALT 25 U/L (12-78) 03/31/17 07:40 Alkaline Phosphatase 76 U/L (45-117) 03/31/17 07:40 Total Protein 7.4 g/dl (6.4-8.2) 03/31/17 07:40 Albumin 4.0 g/dl (3.4-5.0) 03/31/17 07:40 RPR Titer Nonreactive (NONREACTIVE) 03/31/17 07:40 HIV 1&2 Antibody Screen Negative 03/31/17 07:40 HIV P24 Antigen Negative 03/31/17 07:40 Noted, UA pending Assessment: 04/01/17 21:48 withdrawal sx Plan: continue detox
[2017-04-01] MEDS: THIAMINE HCL 100 MG TABLET (FP) PO SCH (22:23)
[2017-04-02] MEDS: diazePAM 5 MG TABLET PO PRN ×2 (07:46→22:09)
[2017-04-02] MEDS ORDERED: METHADONE HCL 5 MG TABLET (FOR DETOX USE ONLY) PO ONE ×2 (10:00)
[2017-04-02] MEDS: PRENATAL VITAMINS W/ FOLIC ACID TABLET (FP) PO SCH (10:10)
[2017-04-02] MEDS: NICOTINE 14 MG/24 HOURS TOPICAL PATCH TD SCH (10:11)
--- NOTE | 2017-04-02 14:43 | PN ---
BHS Progress Note (SOAP) Subjective: joint aches sweat restlessness Objective: 04/02/17 14:41 Vital Signs Temperature 96.8 F L 04/02/17 14:17 Pulse Rate 69 04/02/17 14:17 Respiratory Rate 17 04/02/17 14:17 Blood Pressure 145/95 04/02/17 14:17 O2 Sat by Pulse Oximetry (%) Laboratory Last Values WBC 6.9 K/mm3 (4.0-10.0) 03/31/17 07:40 RBC 4.84 M/mm3 (4.00-5.60) 03/31/17 07:40 Hgb 14.8 GM/dL (11.7-16.9) 03/31/17 07:40 Hct 45.9 % (35.4-49) 03/31/17 07:40 MCV 94.8 fl (80-96) 03/31/17 07:40 MCH 30.5 pg (25.7-33.7) 03/31/17 07:40 MCHC 32.2 g/dl (32.0-35.9) 03/31/17 07:40 RDW 14.3 % (11.9-15.9) 03/31/17 07:40 Plt Count 224 K/MM3 (134-434) D 03/31/17 07:40 MPV 9.3 fl (7.5-11.1) D 03/31/17 07:40 Sodium 139 mmol/L (136-145) 03/31/17 07:40 Potassium 3.9 mmol/L (3.5-5.1) 03/31/17 07:40 Chloride 101 mmol/L (98-107) 03/31/17 07:40 Carbon Dioxide 25 mmol/L (21-32) 03/31/17 07:40 Anion Gap 13 (8-16) 03/31/17 07:40 BUN 23 mg/dL (7-18) H 03/31/17 07:40 Creatinine 1.0 mg/dL (0.7-1.3) 03/31/17 07:40 Creat Clearance w eGFR > 60 (>60) 03/31/17 07:40 Random Glucose 104 mg/dL (74-106) 03/31/17 07:40 Calcium 9.5 mg/dL (8.5-10.1) 03/31/17 07:40 Total Bilirubin 0.7 mg/dL (0.2-1.0) 03/31/17 07:40 AST 20 U/L (15-37) D 03/31/17 07:40 ALT 25 U/L (12-78) 03/31/17 07:40 Alkaline Phosphatase 76 U/L (45-117) 03/31/17 07:40 Total Protein 7.4 g/dl (6.4-8.2) 03/31/17 07:40 Albumin 4.0 g/dl (3.4-5.0) 03/31/17 07:40 RPR Titer Nonreactive (NONREACTIVE) 03/31/17 07:40 HIV 1&2 Antibody Screen Negative 03/31/17 07:40 HIV P24 Antigen Negative 03/31/17 07:40 lab noted Assessment: 04/02/17 14:42 withdrawal sx Plan: continue detox
[2017-04-02] MEDS: THIAMINE HCL 100 MG TABLET (FP) PO SCH (22:07)
[2017-04-03] MEDS: IBUPROFEN 400 MG TABLET (FP) PO PRN ×3 (01:04→12:22)
[2017-04-03] MEDS ORDERED: METHADONE HCL 10 MG TABLET (FOR DETOX USE ONLY) PO ONE (10:00)
[2017-04-03] MEDS ORDERED: METHADONE HCL 5 MG TABLET (FOR DETOX USE ONLY) PO ONE (10:00)
[2017-04-03 10:01] LABS: URINE APPEARANCE CLEAR; URINE BILIRUBIN NEGATIVE (NEGATIVE); URINE BLOOD NEGATIVE (NEGATIVE); URINE COLOR YELLOW; URINE GLUCOSE (UA) NEGATIVE (NEGATIVE); URINE KETONE NEGATIVE (NEGATIVE); URINE LEUK ESTERASE NEGATIVE (NEGATIVE); URINE NITRITE NEGATIVE (NEGATIVE); URINE PROTEIN NEGATIVE (NEGATIVE); URINE UROBILINOGEN NEGATIVE mg/dL (0.2-1.0)
[2017-04-03] MEDS: NICOTINE 14 MG/24 HOURS TOPICAL PATCH TD SCH (10:19)
[2017-04-03] MEDS: PRENATAL VITAMINS W/ FOLIC ACID TABLET (FP) PO SCH (10:19)
--- NOTE | 2017-04-03 11:07 | PN ---
BHS Progress Note (SOAP) Subjective: patient is alert oriented x 3, tolerates food and fluid well no tremor less sweat Objective: 04/03/17 11:06 Vital Signs Temperature 98.0 F 04/03/17 06:18 Pulse Rate 59 L 04/03/17 06:18 Respiratory Rate 18 04/03/17 06:18 Blood Pressure 121/82 04/03/17 06:18 O2 Sat by Pulse Oximetry (%) Laboratory Last Values WBC 6.9 K/mm3 (4.0-10.0) 03/31/17 07:40 RBC 4.84 M/mm3 (4.00-5.60) 03/31/17 07:40 Hgb 14.8 GM/dL (11.7-16.9) 03/31/17 07:40 Hct 45.9 % (35.4-49) 03/31/17 07:40 MCV 94.8 fl (80-96) 03/31/17 07:40 MCH 30.5 pg (25.7-33.7) 03/31/17 07:40 MCHC 32.2 g/dl (32.0-35.9) 03/31/17 07:40 RDW 14.3 % (11.9-15.9) 03/31/17 07:40 Plt Count 224 K/MM3 (134-434) D 03/31/17 07:40 MPV 9.3 fl (7.5-11.1) D 03/31/17 07:40 Sodium 139 mmol/L (136-145) 03/31/17 07:40 Potassium 3.9 mmol/L (3.5-5.1) 03/31/17 07:40 Chloride 101 mmol/L (98-107) 03/31/17 07:40 Carbon Dioxide 25 mmol/L (21-32) 03/31/17 07:40 Anion Gap 13 (8-16) 03/31/17 07:40 BUN 23 mg/dL (7-18) H 03/31/17 07:40 Creatinine 1.0 mg/dL (0.7-1.3) 03/31/17 07:40 Creat Clearance w eGFR > 60 (>60) 03/31/17 07:40 Random Glucose 104 mg/dL (74-106) 03/31/17 07:40 Calcium 9.5 mg/dL (8.5-10.1) 03/31/17 07:40 Total Bilirubin 0.7 mg/dL (0.2-1.0) 03/31/17 07:40 AST 20 U/L (15-37) D 03/31/17 07:40 ALT 25 U/L (12-78) 03/31/17 07:40 Alkaline Phosphatase 76 U/L (45-117) 03/31/17 07:40 Total Protein 7.4 g/dl (6.4-8.2) 03/31/17 07:40 Albumin 4.0 g/dl (3.4-5.0) 03/31/17 07:40 Urine Color Yellow 04/03/17 06:00 Urine Appearance Clear 04/03/17 06:00 Urine pH 6.0 (5.0-8.0) 04/03/17 06:00 Ur Specific [place] 1.023 (1.001-1.035) 04/03/17 06:00 Urine Protein Negative (NEGATIVE) 04/03/17 06:00 Urine Glucose (UA) Negative (NEGATIVE) 04/03/17 06:00 Urine Ketones Negative (NEGATIVE) 04/03/17 06:00 Urine Blood Negative (NEGATIVE) 04/03/17 06:00 Urine Nitrite Negative (NEGATIVE) 04/03/17 06:00 Urine Bilirubin Negative (NEGATIVE) 04/03/17 06:00 Urine Urobilinogen Negative mg/dL (0.2-1.0) 04/03/17 06:00 Ur Leukocyte Esterase Negative (NEGATIVE) 04/03/17 06:00 RPR Titer Nonreactive (NONREACTIVE) 03/31/17 07:40 HIV 1&2 Antibody Screen Negative 03/31/17 07:40 HIV P24 Antigen Negative 03/31/17 07:40 lab noted Assessment: 04/03/17 11:06 mild withdrawal sx Plan: medically supervised detox
[2017-04-03] MEDS: LIDOCAINE 5% TOPICAL PATCH TP SCH (12:20)
[2017-04-03] MEDS: METHOCARBAMOL 500 MG TABLET PO PRN (22:24)
[2017-04-03] MEDS: THIAMINE HCL 100 MG TABLET (FP) PO SCH (22:24)
[2017-04-03] MEDS ORDERED: hydrOXYzine PAMOATE 50 MG CAPSULE (FP) PO ONE (22:24)
--- NOTE | 2017-04-03 22:28 | PN ---
S Progress Note Note: Patient c/o of head with hx of migraines and body aches, difficulty sleeping. Last Vital Signs Temp Pulse Resp BP Pulse Ox 96.9 F L 63 18 147/88 04/03/17 21:36 04/03/17 21:36 04/03/17 21:36 04/03/17 21:36 Patient AOx3, no apparent distress Patient ambulating in the unit touching his temples withdrawal symptoms Ibuprofen 800mg TID Vistaril 50 mg Once Continue detox Continue to monitor
[2017-04-04] MEDS: LIDOCAINE PATCH REMOVAL MC SCH ×2 (01:56→22:34)
[2017-04-04] MEDS: IBUPROFEN 400 MG TABLET (FP) PO PRN ×2 (01:58→10:24)
[2017-04-04] MEDS ORDERED: METHADONE HCL 5 MG TABLET (FOR DETOX USE ONLY) PO ONE (06:00)
--- NOTE | 2017-04-04 08:50 | PN ---
BHS Progress Note (SOAP) Subjective: ALERT ORIENTED X 3 CALM DENIES PAIN NO TREMOR Objective: 04/04/17 08:49 Vital Signs Temperature 97.5 F L 04/04/17 06:26 Pulse Rate 65 04/04/17 06:26 Respiratory Rate 18 04/04/17 06:26 Blood Pressure 112/62 04/04/17 06:26 O2 Sat by Pulse Oximetry (%) Laboratory Last Values WBC 6.9 K/mm3 (4.0-10.0) 03/31/17 07:40 RBC 4.84 M/mm3 (4.00-5.60) 03/31/17 07:40 Hgb 14.8 GM/dL (11.7-16.9) 03/31/17 07:40 Hct 45.9 % (35.4-49) 03/31/17 07:40 MCV 94.8 fl (80-96) 03/31/17 07:40 MCH 30.5 pg (25.7-33.7) 03/31/17 07:40 MCHC 32.2 g/dl (32.0-35.9) 03/31/17 07:40 RDW 14.3 % (11.9-15.9) 03/31/17 07:40 Plt Count 224 K/MM3 (134-434) D 03/31/17 07:40 MPV 9.3 fl (7.5-11.1) D 03/31/17 07:40 Sodium 139 mmol/L (136-145) 03/31/17 07:40 Potassium 3.9 mmol/L (3.5-5.1) 03/31/17 07:40 Chloride 101 mmol/L (98-107) 03/31/17 07:40 Carbon Dioxide 25 mmol/L (21-32) 03/31/17 07:40 Anion Gap 13 (8-16) 03/31/17 07:40 BUN 23 mg/dL (7-18) H 03/31/17 07:40 Creatinine 1.0 mg/dL (0.7-1.3) 03/31/17 07:40 Creat Clearance w eGFR > 60 (>60) 03/31/17 07:40 Random Glucose 104 mg/dL (74-106) 03/31/17 07:40 Calcium 9.5 mg/dL (8.5-10.1) 03/31/17 07:40 Total Bilirubin 0.7 mg/dL (0.2-1.0) 03/31/17 07:40 AST 20 U/L (15-37) D 03/31/17 07:40 ALT 25 U/L (12-78) 03/31/17 07:40 Alkaline Phosphatase 76 U/L (45-117) 03/31/17 07:40 Total Protein 7.4 g/dl (6.4-8.2) 03/31/17 07:40 Albumin 4.0 g/dl (3.4-5.0) 03/31/17 07:40 Urine Color Yellow 04/03/17 06:00 Urine Appearance Clear 04/03/17 06:00 Urine pH 6.0 (5.0-8.0) 04/03/17 06:00 Ur Specific [place] 1.023 (1.001-1.035) 04/03/17 06:00 Urine Protein Negative (NEGATIVE) 04/03/17 06:00 Urine Glucose (UA) Negative (NEGATIVE) 04/03/17 06:00 Urine Ketones Negative (NEGATIVE) 04/03/17 06:00 Urine Blood Negative (NEGATIVE) 04/03/17 06:00 Urine Nitrite Negative (NEGATIVE) 04/03/17 06:00 Urine Bilirubin Negative (NEGATIVE) 04/03/17 06:00 Urine Urobilinogen Negative mg/dL (0.2-1.0) 04/03/17 06:00 Ur Leukocyte Esterase Negative (NEGATIVE) 04/03/17 06:00 RPR Titer Nonreactive (NONREACTIVE) 03/31/17 07:40 HIV 1&2 Antibody Screen Negative 03/31/17 07:40 HIV P24 Antigen Negative 03/31/17 07:40 LAB NOTED Assessment: 04/04/17 08:49 MILD WITHDRAWAL SX Plan: MEDICALLY SUPERVISED DETOX
[2017-04-04] MEDS ORDERED: LIDOCAINE VISCOUS 2% ORAL/TOP 20 ML UNIT-DOSE CUP MM PRN (09:40)
[2017-04-04] MEDS ORDERED: METHADONE HCL 10 MG TABLET (FOR DETOX USE ONLY) PO ONE (10:00)
[2017-04-04] MEDS: LIDOCAINE 5% TOPICAL PATCH TP SCH (10:23)
[2017-04-04] MEDS: PRENATAL VITAMINS W/ FOLIC ACID TABLET (FP) PO SCH (10:23)
[2017-04-04] MEDS: NICOTINE 14 MG/24 HOURS TOPICAL PATCH TD SCH (10:24)
--- NOTE | 2017-04-04 13:38 | EKG ---
Test Reason : Blood Pressure : / mmHG Vent. Rate : 063 BPM Atrial Rate : 063 BPM P-R Int : 150 ms QRS Dur : 100 ms QT Int : 386 ms P-R-T Axes : 069 057 041 degrees QTc Int : 395 ms NORMAL SINUS RHYTHM MODERATE VOLTAGE CRITERIA FOR LVH, MAY BE NORMAL VARIANT EARLY REPOLARIZATION BORDERLINE ECG WHEN COMPARED WITH ECG OF 19-FEB-2017 16:10, NO SIGNIFICANT CHANGE WAS FOUND Confirmed by MD Benjamín, Serge ([id number] on 04/04/2017 1:37:42 PM Referred By: Confirmed By:Serge Butts MD
[2017-04-04] MEDS: ACETAMINOPHEN 325 MG TABLET (FP) PO PRN (17:58)
[2017-04-04 21:47] VITALS: TEMP 97.9
[2017-04-04] MEDS: METHOCARBAMOL 500 MG TABLET PO PRN (22:34)
[2017-04-04] MEDS: THIAMINE HCL 100 MG TABLET (FP) PO SCH (22:34)
[2017-04-05] MEDS ORDERED: METHADONE HCL 5 MG TABLET (FOR DETOX USE ONLY) PO ONE (06:00)
[2017-04-05 06:26] VITALS: BP 146/89; PULSE 59
[2017-04-05] MEDS: IBUPROFEN 400 MG TABLET (FP) PO PRN (09:06)
[2017-04-05] MEDS: PRENATAL VITAMINS W/ FOLIC ACID TABLET (FP) PO SCH (09:07)
[2017-04-05] MEDS: NICOTINE 14 MG/24 HOURS TOPICAL PATCH TD SCH (09:08)
[2017-04-05] MEDS: LIDOCAINE 5% TOPICAL PATCH TP SCH (09:09)
--- NOTE | 2017-04-05 10:23 | DS ---
[facility] Detox Discharge Summary Admission Date: 03/30/17 Discharge Date: 04/05/17 - History Present History: Opioid Dependence - Physical Exam Results Vital Signs: Vital Signs Temperature 97.9 F 04/05/17 06:26 Pulse Rate 59 L 04/05/17 06:26 Respiratory Rate 18 04/05/17 06:26 Blood Pressure 146/89 04/05/17 06:26 O2 Sat by Pulse Oximetry (%) Pertinent Admission Physical Exam Findings: withdrawal sx Laboratory Last Values WBC 6.9 K/mm3 (4.0-10.0) 03/31/17 07:40 RBC 4.84 M/mm3 (4.00-5.60) 03/31/17 07:40 Hgb 14.8 GM/dL (11.7-16.9) 03/31/17 07:40 Hct 45.9 % (35.4-49) 03/31/17 07:40 MCV 94.8 fl (80-96) 03/31/17 07:40 MCH 30.5 pg (25.7-33.7) 03/31/17 07:40 MCHC 32.2 g/dl (32.0-35.9) 03/31/17 07:40 RDW 14.3 % (11.9-15.9) 03/31/17 07:40 Plt Count 224 K/MM3 (134-434) D 03/31/17 07:40 MPV 9.3 fl (7.5-11.1) D 03/31/17 07:40 Sodium 139 mmol/L (136-145) 03/31/17 07:40 Potassium 3.9 mmol/L (3.5-5.1) 03/31/17 07:40 Chloride 101 mmol/L (98-107) 03/31/17 07:40 Carbon Dioxide 25 mmol/L (21-32) 03/31/17 07:40 Anion Gap 13 (8-16) 03/31/17 07:40 BUN 23 mg/dL (7-18) H 03/31/17 07:40 Creatinine 1.0 mg/dL (0.7-1.3) 03/31/17 07:40 Creat Clearance w eGFR > 60 (>60) 03/31/17 07:40 Random Glucose 104 mg/dL (74-106) 03/31/17 07:40 Calcium 9.5 mg/dL (8.5-10.1) 03/31/17 07:40 Total Bilirubin 0.7 mg/dL (0.2-1.0) 03/31/17 07:40 AST 20 U/L (15-37) D 03/31/17 07:40 ALT 25 U/L (12-78) 03/31/17 07:40 Alkaline Phosphatase 76 U/L (45-117) 03/31/17 07:40 Total Protein 7.4 g/dl (6.4-8.2) 03/31/17 07:40 Albumin 4.0 g/dl (3.4-5.0) 03/31/17 07:40 Urine Color Yellow 04/03/17 06:00 Urine Appearance Clear 04/03/17 06:00 Urine pH 6.0 (5.0-8.0) 04/03/17 06:00 Ur Specific [place] 1.023 (1.001-1.035) 04/03/17 06:00 Urine Protein Negative (NEGATIVE) 04/03/17 06:00 Urine Glucose (UA) Negative (NEGATIVE) 04/03/17 06:00 Urine Ketones Negative (NEGATIVE) 04/03/17 06:00 Urine Blood Negative (NEGATIVE) 04/03/17 06:00 Urine Nitrite Negative (NEGATIVE) 04/03/17 06:00 Urine Bilirubin Negative (NEGATIVE) 04/03/17 06:00 Urine Urobilinogen Negative mg/dL (0.2-1.0) 04/03/17 06:00 Ur Leukocyte Esterase Negative (NEGATIVE) 04/03/17 06:00 RPR Titer Nonreactive (NONREACTIVE) 03/31/17 07:40 HIV 1&2 Antibody Screen Negative 03/31/17 07:40 HIV P24 Antigen Negative 03/31/17 07:40 lab noted - Treatment Hospital Course: Detox Protocol Followed, Detoxed Safely, Responded well, Discharged Condition Good, Rehab Referral Accepted Patient has Accepted a Rehab Referral to: new focus - Medication Discharge Medications: Ambulatory Orders Albuterol Sulfate Inhaler - [Ventolin HFA Inhaler -] 2 inh PO Q4H PRN #1 inhaler 04/03/17 - Diagnosis (1) Asthma Status: Chronic Qualifiers: Asthma severity: mild Asthma persistence: intermittent Asthma complication type: with status asthmaticus Qualified Code(s): J45.22 - Mild intermittent asthma with status asthmaticus (2) Opioid dependence with withdrawal Status: Acute - AMA Did Patient Leave Against Medical Advice: No
== END 2017-04-05 09:30 | disposition home or self-care (01) | DRG 773 ==
LOC: YASAS 19:13 → Y6N 20:31
PROVIDERS: ADMIT Internal Medicine; ATTEND Internal Medicine
PROC: HZ2ZZZZ Detoxification Services for Substance Abuse Treatment (ICD-10-PCS; principal; 2017-03-30)
DX: F11.23 Opioid dependence with withdrawal (principal); F12.20 Cannabis dependence, uncomplicated; F17.210 Nicotine dependence, cigarettes, uncomplicated; I10 Essential (primary) hypertension; J45.22 Mild intermittent asthma with status asthmaticus; Z87.442 Personal history of urinary calculi
CPT/HCPCS: 36415; 80053; 81003; 85027; 86593; 87389; 93005; 93010

== ENCOUNTER 2018-07-18 13:44 | Inpatient (IN) | payer OTHER ==
[2018-07-18 16:02] VITALS: BMI 28.0
--- NOTE | 2018-07-18 17:46 | HP ---
COWS - Scale Resting Pulse: 1= [place] 81-100 Sweatin= Chills/Flushing Restless Observation: 3= Extraneous Movement Pupil Size: 1= Pupils >than Normal Bone or Joint Aches: 1= Mild Discomfort Runny Nose/ Eye Tearin= Nasal Congestion GI Upset > 30mins: 1= Stomach Cramp Tremor Observation: 1= Tremor [employer] [place], Not Seen Yawning Observation: 1= 1-2x During Session Anxiety or Irritability: 1=Feels Anxious/Irritable Goose Flesh Skin: 3=Piloerection COWS Score: 15 CIWA Score - Admission Criteria OASAS Guidelines: Admission for Medically Managed Detox: Requires at least one of the followin. CIWA greater than 12 2. Seizures within the past 24 hours 3. Delirium tremens within the past 24 hours 4. Hallucinations within the past 24 hours 5. Acute intervention needed for co occurring medical disorder 6. Acute intervention needed for co occurring psychiatric disorder 7. Severe withdrawal that cannot be handled at a lower level of care (continued vomiting, continued diarrhea, abnormal vital signs) requiring intravenous medication and/or fluids 8. Admission ROS S - HPI Chief Complaint: here for heroin detox 42 yo with asthma, last here about a year ago, says he only relapsed to heroin 1 week ago. 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 Lives with GF. PCP- dont have one Heroin- 2-3 bags/day, sniffing, no h/o OD THC- occ denies other drug use Allergies/Adverse Reactions: Allergies Allergy/AdvReac Type Severity Reaction Status Date / Time No Known Allergies Allergy Verified 07/18/18 15:50 - Ebola screening Have you traveled outside of the country in the last 21 days: No (N) Have you had contact with anyone from an Ebola affected area: No Do you have a fever: No Patient History - Patient Medical History Hx Anemia: No Hx Asthma: Yes (Uses MDI PRN.) Hx Chronic Obstructive Pulmonary Disease (COPD): No Hx Cancer: No Hx Cardiac Disorders: No Hx Congestive Heart Failure: No Hx Hypertension: Yes (No previous medication.) Hx Hypercholesterolemia: No Hx Pacemaker: No HX Cerebrovascular Accident: No Hx Seizures: No Hx Dementia: No Hx Diabetes: No Hx Gastrointestinal Disorders: No Hx Liver Disease: No Hx Genitourinary Disorders: No Hx Sexually Transmitted Disorders: No Hx Renal Disease (ESRD): Yes (hx renal calculi S/P LITHOTRYSY 2016) Hx Thyroid Disease: No Hx Human Immunodeficiency Virus (HIV): No (Last Tested: 04/2017: NEGATIVE.) Hx Hepatitis C: No (Last Tested: 04/2017: NEGATIVE.) Hx Depression: Yes (No previous treatment; patient reports that he uses heroin to treat,) Hx Suicide Attempt: No (PATIENT DENIES CURRENT SI / HI.) Hx Bipolar Disorder: No Hx Schizophrenia: No - Patient Surgical History Past Surgical History: No Hx Neurologic Surgery: No Hx Cataract Extraction: No Hx Cardiac Surgery: No Hx Lung Surgery: No Hx Breast Surgery: No Hx Breast Biopsy: No Hx Abdominal Surgery: No Hx Appendectomy: No Hx Cholecystectomy: No Hx Genitourinary Surgery: No Hx Section: No Hx Orthopedic Surgery: No Other Surgical History: DENIES. Anesthesia Reaction: No - PPD History Date: 02/21/17 PPD to be Administered?: Yes - Smoking Cessation Smoking history: Current every day smoker Have you smoked in the past 12 months: Yes Aproximately how many cigarettes per day: 5 Cigars Per Day: 0 Hx Chewing Tobacco Use: No Initiated information on smoking cessation: Yes 'Breaking Loose' booklet given: 07/18/18 - Substances abused Heroin Substance route: Inhalation Frequency: Daily Amount used: 2 BAGS Age of first use: 40 Date of last use: 07/18/18 Family Disease History - Family Disease History Family Disease History: CA: Mother (Pancreatic Ca - alive. ), Other: Father ( , etoh, drugs), Mother, Brother (1 - living, healthy), Sister (2 - living, ), Son (1 - living ,healthy), Daughter (1 -living , healthy) Admission Physical Exam S - Vital Signs Vital Signs: Vital Signs - 24 hr 07/18/18 07/18/18 15:42 17:30 Temperature 97.5 F L 97.5 F L Pulse Rate 80 80 Respiratory 20 20 Rate Blood Pressure 140/85 140/85 - Physical General Appearance: Yes: Mild Distress HEENTM: Yes: Within Normal Limits, Normocephalic, Normal Voice, LIDIA Respiratory: Yes: Within Normal Limits, Chest Non-Tender, Wheezing Neck: Yes: Within Normal Limits, No masses,lesions,Nodules Cardiology: Yes: Within Normal Limits, Regular Rhythm Abdominal: Yes: Within Normal Limits, Normal Bowel Sounds Back: Yes: Within Normal Limits, Normal Inspection Musculoskeletal: Yes: Within Normal Limits, full range of Motion Extremities: Yes: Within Normal Limits Neurological: Yes: Within Normal Limits, flavoring oil filterer II-XII NML intact, Fully Oriented Integumentary: Yes: Within Normal Limits, Normal Color Lymphatic: Yes: Within Normal Limits - Diagnostic (1) Cannabis dependence, uncomplicated Current Visit: No Status: Acute (2) Opioid dependence with withdrawal Current Visit: No Status: Acute (3) Asthma Current Visit: No Status: Chronic Qualifiers: Asthma severity: mild Asthma persistence: intermittent Asthma complication type: uncomplicated Qualified Code(s): J45.20 - Mild intermittent asthma, uncomplicated (4) Nicotine dependence Current Visit: No Status: Chronic Qualifiers: Nicotine product type: cigarettes Substance use status: in withdrawal Qualified Code(s): F17.213 - Nicotine dependence, cigarettes, with withdrawal Breathalyzer - Breathalyzer Breathalyzer: 0 Urine Drug Screen - Test Device Lot number: [id number] Expiration date: 04/05/20 - Control Is test valid?: Yes - Results Drug screen NEGATIVE: No Urine drug screen results: THC-Marijuana, FEN-Fentanyl, MOP-Opiates Inpatient Rehab Admission - Rehab Decision to Admit Inpatient rehab admission?: No
[2018-07-18] MEDS ORDERED: BISMUTH SUBSALICYLATE 524 MG/30 ML UD PO PRN (17:49)
[2018-07-18] MEDS ORDERED: ACETAMINOPHEN 325 MG TABLET (FP) PO PRN ×2 (17:49)
[2018-07-18] MEDS ORDERED: IBUPROFEN 400 MG TABLET (FP) PO PRN (17:49)
[2018-07-18] MEDS ORDERED: METHOCARBAMOL 500 MG TABLET PO PRN (17:49)
[2018-07-18] MEDS ORDERED: ONDANSETRON *ODT* 4 MG TABLET SL PRN (17:49)
[2018-07-18] MEDS ORDERED: MENTHOL/PHENOL 1 EACH UD MM PRN (17:49)
[2018-07-18] MEDS ORDERED: NALOXONE HCL 0.4 MG/ML VIAL IVPUSH PRN (17:49)
[2018-07-18] MEDS ORDERED: MAGNESIUM CITRATE 300 ML BOTTLE PO PRN (17:49)
[2018-07-18] MEDS ORDERED: MAGNESIUM HYDROX 2400MG/30ML ORAL SUSPENSION 30 ML CUP PO PRN (17:49)
[2018-07-18] MEDS ORDERED: MAG HYDROX/AL HYDROX/SIMETH 30 ML UNIT-DOSE CUP PO PRN (17:49)
[2018-07-18] MEDS ORDERED: cloNIDine HCL 0.1 MG TABLET PO PRN (17:49)
[2018-07-18] MEDS ORDERED: NICOTINE POLACRILEX 4 MG GUM BUC PRN (17:49)
[2018-07-18] MEDS ORDERED: hydrOXYzine PAMOATE 25 MG CAPSULE (FP) PO PRN (17:49)
[2018-07-18] MEDS ORDERED: ALBUTEROL SO4 8 GM HFA INHALER IH PRN (17:51)
[2018-07-18] MEDS ORDERED: METHADONE HCL 10 MG TABLET (FOR DETOX USE ONLY) PO ONE ×2 (18:15→23:00)
[2018-07-18] MEDS: clonazePAM 0.5 MG TABLET PO PRN (19:10)
[2018-07-18] MEDS: MELATONIN 5 MG TABLETS PO PRN (22:34)
[2018-07-18] MEDS: THIAMINE HCL 100 MG TABLET (FP) PO SCH (22:34)
[2018-07-19] MEDS: clonazePAM 0.5 MG TABLET PO PRN ×2 (06:04→22:17)
[2018-07-19] MEDS ORDERED: guaiFENesin/D-METHORPHAN HB 10 ML UNIT-DOSE CUPS PO PRN (07:40)
[2018-07-19] MEDS ORDERED: METHADONE HCL 10 MG TABLET (FOR DETOX USE ONLY) PO ONE (10:00)
[2018-07-19 10:01] LABS: BILIRUBIN,TOTAL 0.4 mg/dL (0.2-1); BLOOD UREA NITROGEN 13.4 mg/dL (7-18); CALCIUM 8.5 mg/dL (8.5-10.1); CREATININE 0.9 mg/dL (0.55-1.3); POTASSIUM 3.8 mmol/L (3.5-5.1); TOT PROT 5.8 g/dl (6.4-8.2)
[2018-07-19 10:09] LABS: HEMATOCRIT 38.7 % (35.4-49); HEMOGLOBIN 12.8 GM/dL (11.7-16.9); MCH 31.1 pg (25.7-33.7); MEAN CELL VOLUME 94.1 fl (80-96); MEAN PLT VOLUME 9.2 fl (7.5-11.1); RBC 4.12 M/mm3 (4.00-5.60); WHITE BLOOD COUNT 5.7 K/mm3 (4.0-10.0)
[2018-07-19] MEDS: PRENATAL VITAMINS W/ FOLIC ACID TABLET (FP) PO SCH (10:11)
[2018-07-19 10:21] LABS: PLATELET COUNT 203 K/MM3 (134-434)
[2018-07-19] MEDS ORDERED: SODIUM CHLORIDE NASAL SPRAY 44 ML BOTTLE NS PRN (11:28)
--- NOTE | 2018-07-19 11:28 | PN ---
BHS COWS - Scale Resting Pulse: 1= [place] 81-100 Sweatin= Chills/Flushing Restless Observation: 1= Difficult to Sit Still Pupil Size: 0= Normal to Room Light Bone or Joint Aches: 2= Severe Diffuse Aches Runny Nose/ Eye Tearin= Nasal Congestion GI Upset > 30mins: 0= None Tremor Observation of Outstretched Hands: 1= Tremor [place], Not Seen Yawning Observation: 2= >3x During Session Anxiety or Irritability: 2=Irritable/Anxious Goose Flesh Skin: 0=Smooth Skin COWS Score: 11 BHS Progress Note (SOAP) Subjective: i need my asthma pump sweats shakes interrupted sleep nasal congestion Objective: 07/19/18 11:27 Vital Signs Temperature 97.9 F 07/19/18 09:28 Pulse Rate 83 07/19/18 09:28 Respiratory Rate 16 07/19/18 09:28 Blood Pressure 147/81 07/19/18 09:28 O2 Sat by Pulse Oximetry (%) Laboratory Tests 07/19/18 07/19/18 07/19/18 07:00 07:00 07:00 WBC 5.7 RBC 4.12 Hgb 12.8 Hct 38.7 MCV 94.1 MCH 31.1 MCHC 33.0 RDW 13.0 Plt Count 203 MPV 9.2 D Sodium 141 Potassium 3.8 Chloride 104 Carbon Dioxide 32 Anion Gap 4 L BUN 13.4 Creatinine 0.9 Est GFR (CKD-EPI)AfAm 119.97 Est GFR (CKD-EPI)NonAf 103.51 Random Glucose 86 Calcium 8.5 Total Bilirubin 0.4 AST 26 ALT 33 Alkaline Phosphatase 60 Total Protein 5.8 L Albumin 3.0 L RPR Titer Nonreactive labs noted aaox3 ambulating no acute distress Assessment: 07/19/18 11:28 withdrawal sx Plan: continue detox increase fluids ocean spray ordered asthma pump and duoneb already ordered; reminded pt
[2018-07-19] MEDS: ALBUTEROL SO4 0.083% IH SOL 2.5 MG/3 ML VIAL.NEB. NEB PRN (12:39)
[2018-07-19] MEDS: THIAMINE HCL 100 MG TABLET (FP) PO SCH (22:14)
[2018-07-19] MEDS: traZODone HCL 50 MG TABLET (FP) PO SCH (22:14)
[2018-07-20] MEDS: ALBUTEROL SO4 0.083% IH SOL 2.5 MG/3 ML VIAL.NEB. NEB PRN ×2 (09:16→23:25)
[2018-07-20] MEDS ORDERED: METHADONE HCL 10 MG TABLET (FOR DETOX USE ONLY) PO ONE (10:00)
[2018-07-20] MEDS: PRENATAL VITAMINS W/ FOLIC ACID TABLET (FP) PO SCH (10:14)
--- NOTE | 2018-07-20 11:01 | PN ---
BHS COWS - Scale Resting Pulse: 1= [place] 81-100 Sweatin=Flushed/Facial Moisture Restless Observation: 1= Difficult to Sit Still Pupil Size: 0= Normal to Room Light Bone or Joint Aches: 2= Severe Diffuse Aches Runny Nose/ Eye Tearin= None GI Upset > 30mins: 0= None Tremor Observation of Outstretched Hands: 2= Slight Tremor Visible Yawning Observation: 1= 1-2x During Session Anxiety or Irritability: 2=Irritable/Anxious Goose Flesh Skin: 0=Smooth Skin COWS Score: 11 BHS Progress Note (SOAP) Subjective: sweats shakes interrupted sleep body aches Objective: 07/20/18 11:01 Vital Signs Temperature 97.2 F L 07/20/18 09:47 Pulse Rate 86 07/20/18 09:47 Respiratory Rate 17 07/20/18 09:47 Blood Pressure 145/75 07/20/18 09:47 O2 Sat by Pulse Oximetry (%) Laboratory Tests 07/19/18 07/19/18 07/19/18 07:00 07:00 07:00 WBC 5.7 RBC 4.12 Hgb 12.8 Hct 38.7 MCV 94.1 MCH 31.1 MCHC 33.0 RDW 13.0 Plt Count 203 MPV 9.2 D Sodium 141 Potassium 3.8 Chloride 104 Carbon Dioxide 32 Anion Gap 4 L BUN 13.4 Creatinine 0.9 Est GFR (CKD-EPI)AfAm 119.97 Est GFR (CKD-EPI)NonAf 103.51 Random Glucose 86 Calcium 8.5 Total Bilirubin 0.4 AST 26 ALT 33 Alkaline Phosphatase 60 Total Protein 5.8 L Albumin 3.0 L RPR Titer Nonreactive aaox3 ambulating no acute distress Assessment: 07/20/18 11:01 withdrawal sx Plan: continue detox increase fluids
[2018-07-20] MEDS: THIAMINE HCL 100 MG TABLET (FP) PO SCH (23:00)
[2018-07-20] MEDS: MELATONIN 5 MG TABLETS PO PRN (23:00)
[2018-07-20] MEDS: traZODone HCL 50 MG TABLET (FP) PO SCH (23:00)
[2018-07-21 06:52] VITALS: BP 126/66; PULSE 69; TEMP 97.9
[2018-07-21] MEDS ORDERED: METHADONE HCL 10 MG TABLET (FOR DETOX USE ONLY) PO ONE (10:00)
[2018-07-21] MEDS: PRENATAL VITAMINS W/ FOLIC ACID TABLET (FP) PO SCH (10:04)
--- NOTE | 2018-07-21 15:43 | DS ---
[facility] Detox Discharge Summary Admission Date: 07/18/18 Discharge Date: 07/21/18 - History Additional Comments: Patient insisting on leaving. States he has things to go take care of Verbalized understanding that he is leaving AMA He is A & O x 3, has steady gait, not in acute distress Vital Signs Temperature 97.9 F 07/21/18 06:00 Pulse Rate 69 07/21/18 06:00 Respiratory Rate 18 07/21/18 06:00 Blood Pressure 126/66 07/21/18 06:00 O2 Sat by Pulse Oximetry (%) Pertinent Past History: withdrawal sx - Physical Exam Results Vital Signs: Vital Signs Temperature 97.9 F 07/21/18 06:00 Pulse Rate 69 07/21/18 06:00 Respiratory Rate 18 07/21/18 06:00 Blood Pressure 126/66 07/21/18 06:00 O2 Sat by Pulse Oximetry (%) - Medication Discharge Medications: Ambulatory Orders Albuterol Sulfate Inhaler - [Ventolin HFA Inhaler -] 2 inh PO Q4H PRN #1 inhaler 07/21/18 Naloxone HCl [Narcan] 4 mg NS PRN PRN #1 spray 07/21/18 - AMA Did Patient Leave Against Medical Advice: Yes
[2018-07-22] MEDS ORDERED: METHADONE HCL 5 MG TABLET (FOR DETOX USE ONLY) PO ONE (06:00)
== END 2018-07-21 10:52 | disposition left against medical advice (07) | DRG 770 ==
LOC: YASAS 13:44 → Y6N 17:44
PROVIDERS: ADMIT Surgery; ATTEND Surgery
PROC: HZ2ZZZZ Detoxification Services for Substance Abuse Treatment (ICD-10-PCS; principal; 2018-07-18)
DX: F11.23 Opioid dependence with withdrawal (principal); F12.20 Cannabis dependence, uncomplicated; F17.210 Nicotine dependence, cigarettes, uncomplicated; I10 Essential (primary) hypertension; J45.20 Mild intermittent asthma, uncomplicated
CPT/HCPCS: 36415; 80053; 85027; 86593; 94640; J0735

== ENCOUNTER 2018-07-28 16:32 | Inpatient (IN) | payer OTHER ==
[2018-07-28 19:14] VITALS: BMI 27.4
--- NOTE | 2018-07-28 21:53 | HP ---
COWS - Scale Resting Pulse: 0= [place] 80 or Below Sweatin=Flushed/Facial Moisture Restless Observation: 1= Difficult to Sit Still Pupil Size: 1= Pupils >than Normal Bone or Joint Aches: 4=Acute Joint/Muscle Pain Runny Nose/ Eye Tearin= Runny Nose/Eyes GI Upset > 30mins: 3= Vomiting/Diarrhea (vomiting x 2, diarrhea x 2) Tremor Observation: 4= Gross Tremor/Twitching Yawning Observation: 1= 1-2x During Session Anxiety or Irritability: 2=Irritable/Anxious Goose Flesh Skin: 0=Smooth Skin COWS Score: 20 CIWA Score - Admission Criteria OASAS Guidelines: Admission for Medically Managed Detox: Requires at least one of the followin. CIWA greater than 12 2. Seizures within the past 24 hours 3. Delirium tremens within the past 24 hours 4. Hallucinations within the past 24 hours 5. Acute intervention needed for co occurring medical disorder 6. Acute intervention needed for co occurring psychiatric disorder 7. Severe withdrawal that cannot be handled at a lower level of care (continued vomiting, continued diarrhea, abnormal vital signs) requiring intravenous medication and/or fluids 8. Admission [facility] Chief Complaint: Heroin withdrawal symptoms Allergies/Adverse Reactions: Allergies Allergy/AdvReac Type Severity Reaction Status Date / Time No Known Allergies Allergy Verified 07/28/18 18:35 History of Present Illness: 42 years old male with 4 years of heroin dependence is seeking admission to detox. Patient was in detox 07/18/2018 - 07/21/2018 and left against medical advice. He states that his mother was sick and he had to go and take care of her. He reports insignificant period of sobriety. He has medical history of asthma, renal calculi, hypertension and depression. He denies suicidal ideation at this time. Exam Limitations: No Limitations, Clinical Condition - Ebola screening Have you traveled outside of the country in the last 21 days: No (N) Have you had contact with anyone from an Ebola affected area: No Do you have a fever: No - Review of Systems Constitutional: Chills, Malaise, Night Sweats, Changes in sleep EENT: reports: Sinus Pressure Respiratory: reports: No Symptoms reported Cardiac: reports: No Symptoms Reported GI: reports: Diarrhea, Nausea, Poor Appetite, Poor Fluid Intake, Vomiting, Abdominal cramping : reports: No Symptoms Reported Musculoskeletal: reports: Back Pain, Joint Pain, Muscle Pain, Neck Pain Integumentary: reports: Dryness, Flushing Neuro: reports: Headache, Tremors Endocrine: reports: No Symptoms Reported Hematology: reports: No Symptoms Reported Psychiatric: reports: Agitated, Anxious, Depressed Other Systems: Reviewed and Negative Patient History - Patient Medical History Hx Anemia: No Hx Asthma: Yes (Uses MDI PRN.) Hx Chronic Obstructive Pulmonary Disease (COPD): No Hx Cancer: No Hx Cardiac Disorders: No Hx Congestive Heart Failure: No Hx Hypertension: Yes (No previous medication.) Hx Hypercholesterolemia: No Hx Pacemaker: No HX Cerebrovascular Accident: No Hx Seizures: No Hx Dementia: No Hx Diabetes: No Hx Gastrointestinal Disorders: No Hx Liver Disease: No Hx Genitourinary Disorders: No Hx Sexually Transmitted Disorders: No Hx Renal Disease (ESRD): Yes (hx renal calculi S/P LITHOTRYSY 2016) Hx Thyroid Disease: No Hx Human Immunodeficiency Virus (HIV): No (Last Tested: 04/2017: NEGATIVE.) Hx Hepatitis C: No (Last Tested: 04/2017: NEGATIVE.) Hx Depression: Yes (No previous treatment; patient reports that he uses heroin to treat,) Hx Suicide Attempt: No (PATIENT DENIES CURRENT SI / HI.) Hx Bipolar Disorder: No Hx Schizophrenia: No - Patient Surgical History Past Surgical History: No Hx Neurologic Surgery: No Hx Cataract Extraction: No Hx Cardiac Surgery: No Hx Lung Surgery: No Hx Abdominal Surgery: No Hx Appendectomy: No Hx Cholecystectomy: No Hx Genitourinary Surgery: No Hx Section: No Hx Orthopedic Surgery: No Other Surgical History: DENIES. Anesthesia Reaction: No - PPD History Previous Implant?: Yes Documented Results: Negative w/proof Implanted On Prior [facility] Admission?: Yes Date: 07/21/18 PPD to be Administered?: No - Reproductive History Patient is a Female of Child Bearing Age (11 -55 yrs old): No (male) - Smoking Cessation Smoking history: Current every day smoker Have you smoked in the past 12 months: Yes Aproximately how many cigarettes per day: 5 Cigars Per Day: 0 Hx Chewing Tobacco Use: No Initiated information on smoking cessation: Yes 'Breaking Loose' booklet given: 07/28/18 - Substance & Tx. History Hx Alcohol Use: No Hx Substance Use: Yes Substance Use Type: Heroin, Opiates Hx Substance Use Treatment: Yes ([facility]) - Substances abused Heroin Substance route: Inhalation Frequency: Daily Amount used: 3 bags Age of first use: 40 Date of last use: 07/28/18 Family Disease History - Family Disease History Family Disease History: CA: Mother (Pancreatic Ca - alive. ), Other: Father ( , etoh, drugs), Mother, Brother (1 - living, healthy), Sister (2 - living, ), Son (1 - living ,healthy), Daughter (1 -living , healthy) Admission Physical Exam [facility] - Vital Signs Vital Signs: Vital Signs - 24 hr 07/28/18 18:36 Temperature 97.6 F Pulse Rate 70 Respiratory 16 Rate Blood Pressure 153/92 - Physical General Appearance: Yes: Moderate Distress, Tremorous, Sweating, Anxious HEENTM: Yes: Within Normal Limits Respiratory: Yes: Lungs Clear, Normal Breath Sounds, No Respiratory Distress Neck: Yes: Supple Breast: Yes: Breast Exam Deferred Cardiology: Yes: Regular Rhythm, Regular Rate Abdominal: Yes: Within Normal Limits Genitourinary: Yes: Within Normal Limits Back: Yes: Normal Inspection Musculoskeletal: Yes: Back pain, Muscle Pain, Muscle weakness Extremities: Yes: Tremors Neurological: Yes: Within Normal Limits Integumentary: Yes: Warm Lymphatic: Yes: Within Normal Limits - Diagnostic (1) Cannabis dependence, uncomplicated Current Visit: Yes Status: Chronic (2) Opioid dependence with withdrawal Current Visit: Yes Status: Chronic (3) Asthma Current Visit: Yes Status: Chronic Qualifiers: Asthma severity: mild Asthma persistence: intermittent Asthma complication type: uncomplicated Qualified Code(s): J45.20 - Mild intermittent asthma, uncomplicated (4) Depression (emotion) Current Visit: Yes Status: Chronic Qualifiers: Depression Type: unspecified Qualified Code(s): F32.9 - Major depressive disorder, single episode, unspecified (5) HTN (hypertension) Current Visit: Yes Status: Chronic Qualifiers: Hypertension type: essential hypertension Qualified Code(s): I10 - Essential (primary) hypertension (6) Nicotine dependence Current Visit: Yes Status: Chronic Qualifiers: Nicotine product type: cigarettes Substance use status: in withdrawal Qualified Code(s): F17.213 - Nicotine dependence, cigarettes, with withdrawal (7) History of renal calculi Current Visit: No Status: Resolved Cleared for Admission [facility] - Detox or Rehab [facility] Level of Care: Medically Managed Detox Regimen/Protocol: Methadone Breathalyzer - Breathalyzer Breathalyzer: 0 Urine Drug Screen - Test Device Lot number: [id number] Expiration date: 04/05/20 - Control Is test valid?: Yes - Results Drug screen NEGATIVE: No Urine drug screen results: THC-Marijuana, FEN-Fentanyl, MOP-Opiates, OXY- Oxycodone, MTD-Methadone, BUP-Suboxone Inpatient Rehab Admission - Rehab Decision to Admit Inpatient rehab admission?: No
[2018-07-28] MEDS ORDERED: BISMUTH SUBSALICYLATE 524 MG/30 ML UD PO PRN (22:06)
[2018-07-28] MEDS ORDERED: MAGNESIUM CITRATE 300 ML BOTTLE PO PRN (22:06)
[2018-07-28] MEDS ORDERED: IBUPROFEN 400 MG TABLET (FP) PO PRN (22:06)
[2018-07-28] MEDS ORDERED: METHOCARBAMOL 500 MG TABLET PO PRN (22:06)
[2018-07-28] MEDS ORDERED: MAG HYDROX/AL HYDROX/SIMETH 30 ML UNIT-DOSE CUP PO PRN (22:06)
[2018-07-28] MEDS ORDERED: ACETAMINOPHEN 325 MG TABLET (FP) PO PRN ×2 (22:06)
[2018-07-28] MEDS ORDERED: MENTHOL/PHENOL 1 EACH UD MM PRN (22:06)
[2018-07-28] MEDS ORDERED: NICOTINE POLACRILEX 2 MG GUM BUC PRN (22:06)
[2018-07-28] MEDS ORDERED: MAGNESIUM HYDROX 2400MG/30ML ORAL SUSPENSION 30 ML CUP PO PRN (22:06)
[2018-07-28] MEDS ORDERED: hydrOXYzine PAMOATE 25 MG CAPSULE (FP) PO PRN (22:06)
[2018-07-28] MEDS ORDERED: cloNIDine HCL 0.1 MG TABLET PO PRN (22:06)
[2018-07-28] MEDS ORDERED: ALBUTEROL SO4 8 GM HFA INHALER IH PRN (22:10)
[2018-07-28] MEDS ORDERED: ALBUTEROL SO4 0.083% IH SOL 2.5 MG/3 ML VIAL.NEB. NEB ONE (22:11)
[2018-07-28] MEDS ORDERED: METHADONE HCL 10 MG TABLET (FOR DETOX USE ONLY) PO ONE (23:00)
[2018-07-28] MEDS: MELATONIN 5 MG TABLETS PO PRN (23:01)
[2018-07-29] MEDS ORDERED: NICOTINE 14 MG/24 HOURS TOPICAL PATCH TD SCH (10:00)
[2018-07-29] MEDS ORDERED: METHADONE HCL 10 MG TABLET (FOR DETOX USE ONLY) PO ONE (10:00)
[2018-07-29] MEDS ORDERED: PRENATAL VITAMINS W/ FOLIC ACID TABLET (FP) PO SCH (10:00)
[2018-07-29 10:36] LABS: HEMOGLOBIN 13.3 GM/dL (11.7-16.9); MCH 30.8 pg (25.7-33.7); MCHC 33.2 g/dl (32.0-35.9); MEAN CELL VOLUME 92.9 fl (80-96); MEAN PLT VOLUME 8.6 fl (7.5-11.1); PLATELET COUNT 265 K/MM3 (134-434); WHITE BLOOD COUNT 6.3 K/mm3 (4.0-10.0)
[2018-07-29 10:56] LABS: ALBUMIN 3.3 g/dl (3.4-5.0); BILIRUBIN,TOTAL 0.4 mg/dL (0.2-1); BLOOD UREA NITROGEN 10.5 mg/dL (7-18); CALCIUM 8.6 mg/dL (8.5-10.1); CREATININE 0.9 mg/dL (0.55-1.3); POTASSIUM 3.9 mmol/L (3.5-5.1); TOT PROT 6.3 g/dl (6.4-8.2)
[2018-07-29] MEDS ORDERED: ALBUTEROL SO4 0.083% IH SOL 2.5 MG/3 ML VIAL.NEB. NEB ONE (11:06)
--- NOTE | 2018-07-29 13:41 | PN ---
BHS COWS - Scale Resting Pulse: 0= [place] 80 or Below Sweatin= Chills/Flushing Restless Observation: 3= Extraneous Movement Pupil Size: 0= Normal to Room Light Bone or Joint Aches: 2= Severe Diffuse Aches Runny Nose/ Eye Tearin= Runny Nose/Eyes GI Upset > 30mins: 3= Vomiting/Diarrhea Tremor Observation of Outstretched Hands: 2= Slight Tremor Visible Yawning Observation: 0= None Anxiety or Irritability: 2=Irritable/Anxious Goose Flesh Skin: 0=Smooth Skin COWS Score: 15 BHS Progress Note (SOAP) Subjective: Anxious, interrupted sleep, sweating. Patient stated his asthma is stable and that he took the albuterol pump but would like a nebulizer treatment. Objective: 07/29/18 13:38 Last Vital Signs Temp Pulse Resp BP Pulse Ox 98.1 F 59 L 18 128/59 L 07/29/18 09:42 07/29/18 09:42 07/29/18 09:42 07/29/18 09:42 Laboratory Tests 07/29/18 07/29/18 07/29/18 08:00 08:00 08:00 WBC 6.3 RBC 4.30 Hgb 13.3 Hct 40.0 MCV 92.9 MCH 30.8 MCHC 33.2 RDW 13.0 Plt Count 265 D MPV 8.6 Sodium 138 Potassium 3.9 Chloride 103 Carbon Dioxide 29 Anion Gap 7 L BUN 10.5 Creatinine 0.9 Est GFR (CKD-EPI)AfAm 119.97 Est GFR (CKD-EPI)NonAf 103.51 Random Glucose 100 Calcium 8.6 Total Bilirubin 0.4 AST 19 ALT 35 Alkaline Phosphatase 68 Total Protein 6.3 L Albumin 3.3 L RPR Titer Nonreactive HIV 1&2 Antibody Screen HIV P24 Antigen 07/29/18 09:00 WBC RBC Hgb Hct MCV MCH MCHC RDW Plt Count MPV Sodium Potassium Chloride Carbon Dioxide Anion Gap BUN Creatinine Est GFR (CKD-EPI)AfAm Est GFR (CKD-EPI)NonAf Random Glucose Calcium Total Bilirubin AST ALT Alkaline Phosphatase Total Protein Albumin RPR Titer HIV 1&2 Antibody Screen Negative HIV P24 Antigen Negative Labs reviewed Assessment: 07/29/18 13:39 Withdrawal symptoms Plan: Continue detox Encouraged PO water intake Albuterol nebulizer inhaler x 1 for asthma
[2018-07-29] MEDS ORDERED: THIAMINE HCL 100 MG TABLET (FP) PO SCH (22:00)
[2018-07-29] MEDS: MELATONIN 5 MG TABLETS PO PRN (22:07)
[2018-07-30 09:12] VITALS: BP 137/77; PULSE 88; TEMP 99.1
--- NOTE | 2018-07-30 09:55 | PN ---
S Progress Note Note: pt was admitted in withdrawals. pt c/o of withdrawal s/s and aggressive symptomatic management attempted however , pt in spite of extensive motivational counseling regarding the risk of relapse , seizure and or loss, pt chose to sign out AMA.
[2018-07-30] MEDS ORDERED: METHADONE HCL 10 MG TABLET (FOR DETOX USE ONLY) PO ONE (10:00)
--- NOTE | 2018-07-30 10:06 | DS ---
[facility] Detox Discharge Summary Admission Date: 07/28/18 - History Present History: Cannabis Dependence, Opioid Dependence - Physical Exam Results Vital Signs: Vital Signs Temperature 99.1 F 07/30/18 09:12 Pulse Rate 88 07/30/18 09:12 Respiratory Rate 18 07/30/18 09:12 Blood Pressure 137/77 07/30/18 09:12 O2 Sat by Pulse Oximetry (%) - Treatment Hospital Course: Discharged Condition Good - Medication Discharge Medications: Ambulatory Orders Albuterol Sulfate Inhaler - [Ventolin HFA Inhaler -] 2 inh PO Q4H PRN #1 inhaler 07/21/18 Naloxone HCl [Narcan] 4 mg NS PRN PRN #1 spray 07/21/18 - Diagnosis (1) Asthma Current Visit: Yes Status: Chronic Qualifiers: Asthma severity: mild Asthma persistence: intermittent Asthma complication type: uncomplicated Qualified Code(s): J45.20 - Mild intermittent asthma, uncomplicated (2) Cannabis dependence, uncomplicated Current Visit: Yes Status: Chronic (3) Depression (emotion) Current Visit: Yes Status: Chronic Qualifiers: Depression Type: unspecified Qualified Code(s): F32.9 - Major depressive disorder, single episode, unspecified (4) HTN (hypertension) Current Visit: Yes Status: Chronic Qualifiers: Hypertension type: essential hypertension Qualified Code(s): I10 - Essential (primary) hypertension (5) Nicotine dependence Current Visit: Yes Status: Chronic Qualifiers: Nicotine product type: cigarettes Substance use status: uncomplicated Qualified Code(s): F17.210 - Nicotine dependence, cigarettes, uncomplicated (6) Opioid dependence with withdrawal Current Visit: Yes Status: Chronic (7) Drug-induced mood disorder Current Visit: No Status: Acute (8) Insomnia Current Visit: No Status: Acute (9) Cannabis dependence Current Visit: Yes Status: Chronic - AMA Did Patient Leave Against Medical Advice: Yes (pt signed out AMA; going home)
[2018-07-31] MEDS ORDERED: METHADONE HCL 10 MG TABLET (FOR DETOX USE ONLY) PO ONE (10:00)
[2018-08-01] MEDS ORDERED: METHADONE HCL 5 MG TABLET (FOR DETOX USE ONLY) PO ONE (06:00)
== END 2018-07-30 09:28 | disposition left against medical advice (07) | DRG 770 ==
LOC: YASAS 16:32 → Y6N 21:12
PROVIDERS: ADMIT Surgery; ATTEND Surgery
PROC: HZ2ZZZZ Detoxification Services for Substance Abuse Treatment (ICD-10-PCS; principal; 2018-07-28)
DX: F11.23 Opioid dependence with withdrawal (principal); F12.20 Cannabis dependence, uncomplicated; F17.210 Nicotine dependence, cigarettes, uncomplicated; F32.9 Major depressive disorder, single episode, unspecified; F19.24 Other psychoactive substance dependence with psychoactive substance-induced mood disorder; I10 Essential (primary) hypertension; J45.20 Mild intermittent asthma, uncomplicated; G47.00 Insomnia, unspecified; Z87.442 Personal history of urinary calculi
CPT/HCPCS: 36415; 80053; 85027; 86593; 87389; 94640

== ENCOUNTER 2018-08-06 15:26 | Inpatient (IN) | payer OTHER ==
--- NOTE | 2018-08-06 20:25 | HP ---
COWS - Scale Resting Pulse: 1= [place] 81-100 Sweatin=Flushed/Facial Moisture Restless Observation: 3= Extraneous Movement Pupil Size: 1= Pupils >than Normal Bone or Joint Aches: 4=Acute Joint/Muscle Pain Runny Nose/ Eye Tearin= Runny Nose/Eyes GI Upset > 30mins: 3= Vomiting/Diarrhea (vomiting x 2, diarrhea x 4) Tremor Observation: 2= Slight Tremor Visible Yawning Observation: 0= None Anxiety or Irritability: 2=Irritable/Anxious Goose Flesh Skin: 0=Smooth Skin COWS Score: 20 CIWA Score - Admission Criteria OASAS Guidelines: Admission for Medically Managed Detox: Requires at least one of the followin. CIWA greater than 12 2. Seizures within the past 24 hours 3. Delirium tremens within the past 24 hours 4. Hallucinations within the past 24 hours 5. Acute intervention needed for co occurring medical disorder 6. Acute intervention needed for co occurring psychiatric disorder 7. Severe withdrawal that cannot be handled at a lower level of care (continued vomiting, continued diarrhea, abnormal vital signs) requiring intravenous medication and/or fluids 8. Admission ROS [facility] Chief Complaint: Heroin withdrawal symptoms Allergies/Adverse Reactions: Allergies Allergy/AdvReac Type Severity Reaction Status Date / Time No Known Allergies Allergy Verified 08/06/18 18:32 History of Present Illness: 42 years old male with 14 years of heroin dependence is seeking admission to detox. Patient has been in multiple detox, last at [facility] and reports 18 months of sobriety. He has history of asthma, kidney stones, hypertension and depression. He denies suicida ideation at this time. Exam Limitations: No Limitations - Ebola screening Have you traveled outside of the country in the last 21 days: No (N) Have you had contact with anyone from an Ebola affected area: No Do you have a fever: No - Review of Systems Constitutional: Chills, Malaise, Night Sweats, Weakness EENT: reports: No Symptoms Reported, Sinus Pressure Respiratory: reports: No Symptoms reported Cardiac: reports: No Symptoms Reported GI: reports: Diarrhea, Nausea, Poor Appetite, Poor Fluid Intake, Vomiting, Abdominal cramping : reports: No Symptoms Reported Musculoskeletal: reports: Back Pain, Joint Pain, Muscle Pain Integumentary: reports: Dryness, Flushing Neuro: reports: Headache, Tremors Endocrine: reports: No Symptoms Reported Hematology: reports: No Symptoms Reported Psychiatric: reports: Depressed Other Systems: Reviewed and Negative Patient History - Patient Medical History Hx Anemia: No Hx Asthma: Yes (Uses MDI PRN.) Hx Chronic Obstructive Pulmonary Disease (COPD): No Hx Cancer: No Hx Cardiac Disorders: No Hx Congestive Heart Failure: No Hx Hypertension: Yes (Not on medication) Hx Hypercholesterolemia: No Hx Pacemaker: No HX Cerebrovascular Accident: No Hx Seizures: No Hx Dementia: No Hx Diabetes: No Hx Gastrointestinal Disorders: No Hx Liver Disease: No Hx Genitourinary Disorders: No Hx Sexually Transmitted Disorders: No Hx Renal Disease (ESRD): Yes (hx renal calculi S/P LITHOTRYSY 2016) Hx Thyroid Disease: No Hx Human Immunodeficiency Virus (HIV): No (Last Tested: 04/2017: NEGATIVE.) Hx Hepatitis C: No (Last Tested: 04/2017: NEGATIVE.) Hx Depression: Yes (Not on medication) Hx Suicide Attempt: No (Denies suicidal ideation at this time) Hx Bipolar Disorder: No Hx Schizophrenia: No - Patient Surgical History Past Surgical History: No Hx Neurologic Surgery: No Hx Cataract Extraction: No Hx Cardiac Surgery: No Hx Lung Surgery: No Hx Abdominal Surgery: No Hx Appendectomy: No Hx Cholecystectomy: No Hx Genitourinary Surgery: No Hx Orthopedic Surgery: No Other Surgical History: DENIES. Anesthesia Reaction: No - PPD History Previous Implant?: Yes Documented Results: Negative w/proof Implanted On Prior [facility] Admission?: Yes Date: 07/21/18 PPD to be Administered?: No - Reproductive History Patient is a Female of Child Bearing Age (11 -55 yrs old): No (male) - Smoking Cessation Smoking history: Current every day smoker Have you smoked in the past 12 months: Yes Aproximately how many cigarettes per day: 10 Cigars Per Day: 0 Hx Chewing Tobacco Use: No Initiated information on smoking cessation: Yes 'Breaking Loose' booklet given: 08/06/18 - Substance & Tx. History Hx Alcohol Use: No Hx Substance Use: Yes Substance Use Type: Heroin, Marijuana, Opiates Hx Substance Use Treatment: Yes ([facility]) - Substances abused Heroin Substance route: Inhalation Frequency: Daily Amount used: 4-5 bags Age of first use: 40 Date of last use: 08/06/18 Family Disease History - Family Disease History Family Disease History: CA: Mother (Pancreatic Ca - alive. ), Other: Father ( , etoh, drugs), Mother, Brother (1 - living, healthy), Sister (2 - living, ), Son (1 - living ,healthy), Daughter (1 -living , healthy) Admission Physical Exam [facility] - Vital Signs Vital Signs: Vital Signs - 24 hr 08/06/18 18:32 Temperature 96.2 F L Pulse Rate 84 Respiratory 18 Rate Blood Pressure 156/85 - Physical General Appearance: Yes: Moderate Distress, Tremorous, Anxious HEENTM: Yes: Rhinorrhea Respiratory: Yes: Lungs Clear, Normal Breath Sounds, No Respiratory Distress Neck: Yes: Supple Breast: Yes: Breast Exam Deferred Cardiology: Yes: Regular Rhythm, Regular Rate Abdominal: Yes: Normal Bowel Sounds, Soft Genitourinary: Yes: Within Normal Limits Back: Yes: Normal Inspection Musculoskeletal: Yes: Back pain, Muscle Pain Extremities: Yes: Tremors Neurological: Yes: Within Normal Limits Integumentary: Yes: Warm Lymphatic: Yes: Within Normal Limits - Diagnostic (1) Asthma Current Visit: Yes Status: Chronic Qualifiers: Asthma severity: mild Asthma persistence: intermittent Asthma complication type: uncomplicated Qualified Code(s): J45.20 - Mild intermittent asthma, uncomplicated (2) Cannabis dependence Current Visit: Yes Status: Chronic (3) Depression (emotion) Current Visit: Yes Status: Chronic Qualifiers: Depression Type: unspecified Qualified Code(s): F32.9 - Major depressive disorder, single episode, unspecified (4) HTN (hypertension) Current Visit: Yes Status: Chronic Qualifiers: Hypertension type: essential hypertension Qualified Code(s): I10 - Essential (primary) hypertension (5) Nicotine dependence Current Visit: Yes Status: Chronic Qualifiers: Nicotine product type: cigarettes Substance use status: uncomplicated Qualified Code(s): F17.210 - Nicotine dependence, cigarettes, uncomplicated (6) Opioid dependence with withdrawal Current Visit: Yes Status: Chronic (7) Kidney stones Current Visit: Yes Status: Chronic Cleared for Admission [facility] - Detox or Rehab [facility] Level of Care: Medically Managed Detox Regimen/Protocol: Methadone Breathalyzer - Breathalyzer Breathalyzer: 0 Urine Drug Screen - Test Device Lot number: [id number] Expiration date: 04/05/20 - Control Is test valid?: Yes - Results Drug screen NEGATIVE: No Urine drug screen results: THC-Marijuana, FEN-Fentanyl, MOP-Opiates, MTD- Methadone, BUP-Suboxone Inpatient Rehab Admission - Rehab Decision to Admit Inpatient rehab admission?: No
[2018-08-06] MEDS ORDERED: ACETAMINOPHEN 325 MG TABLET (FP) PO PRN ×2 (20:42)
[2018-08-06] MEDS ORDERED: MAG HYDROX/AL HYDROX/SIMETH 30 ML UNIT-DOSE CUP PO PRN (20:42)
[2018-08-06] MEDS ORDERED: NICOTINE POLACRILEX 2 MG GUM BUC PRN (20:42)
[2018-08-06] MEDS ORDERED: MAGNESIUM CITRATE 300 ML BOTTLE PO PRN (20:42)
[2018-08-06] MEDS ORDERED: MAGNESIUM HYDROX 2400MG/30ML ORAL SUSPENSION 30 ML CUP PO PRN (20:42)
[2018-08-06] MEDS ORDERED: MENTHOL/PHENOL 1 EACH UD MM PRN (20:42)
[2018-08-06] MEDS ORDERED: BISMUTH SUBSALICYLATE 524 MG/30 ML UD PO PRN (20:42)
[2018-08-06] MEDS ORDERED: IBUPROFEN 400 MG TABLET (FP) PO PRN (20:42)
[2018-08-06] MEDS ORDERED: METHADONE HCL 10 MG TABLET (FOR DETOX USE ONLY) PO ONE (20:42)
[2018-08-06] MEDS: THIAMINE HCL 100 MG TABLET (FP) PO SCH (21:36)
[2018-08-06] MEDS: MELATONIN 5 MG TABLETS PO PRN (21:36)
[2018-08-07] MEDS: ALBUTEROL SO4 8 GM HFA INHALER IH PRN ×3 (05:07→22:20)
[2018-08-07] MEDS ORDERED: METHADONE HCL 10 MG TABLET (FOR DETOX USE ONLY) ONE (08:54)
[2018-08-07] MEDS ORDERED: METHADONE HCL 5 MG TABLET (FOR DETOX USE ONLY) ONE (08:55)
[2018-08-07 09:51] LABS: HEMATOCRIT 38.5 % (35.4-49); HEMOGLOBIN 12.8 GM/dL (11.7-16.9); MCHC 33.2 g/dl (32.0-35.9); MEAN CELL VOLUME 93.4 fl (80-96); PLATELET COUNT 229 K/MM3 (134-434); RBC 4.13 M/mm3 (4.00-5.60); RDW 12.9 % (11.9-15.9); WHITE BLOOD COUNT 6.7 K/mm3 (4.0-10.0)
[2018-08-07] MEDS ORDERED: METHADONE (DETOX) 20 MG, METHADONE (DETOX) 5 MG PO ONE (10:00)
[2018-08-07 10:08] LABS: ALBUMIN 3.1 g/dl (3.4-5.0); BILIRUBIN,TOTAL 0.2 mg/dL (0.2-1); BLOOD UREA NITROGEN 14.6 mg/dL (7-18); CALCIUM 8.3 mg/dL (8.5-10.1); CREATININE 0.9 mg/dL (0.55-1.3); POTASSIUM 3.6 mmol/L (3.5-5.1); TOT PROT 5.9 g/dl (6.4-8.2)
[2018-08-07] MEDS: cloNIDine HCL 0.1 MG TABLET PO PRN ×2 (10:49→22:19)
[2018-08-07] MEDS: PRENATAL VITAMINS W/ FOLIC ACID TABLET (FP) PO SCH (10:49)
[2018-08-07] MEDS: hydrOXYzine PAMOATE 25 MG CAPSULE (FP) PO PRN ×2 (10:50→22:20)
[2018-08-07] MEDS: NICOTINE 14 MG/24 HOURS TOPICAL PATCH TD SCH (10:51)
--- NOTE | 2018-08-07 13:29 | PN ---
BHS COWS - Scale Resting Pulse: 1= [place] 81-100 Sweatin= Chills/Flushing Restless Observation: 1= Difficult to Sit Still Pupil Size: 0= Normal to Room Light Bone or Joint Aches: 1= Mild Discomfort Runny Nose/ Eye Tearin= Nasal Congestion GI Upset > 30mins: 1= Stomach Cramp Tremor Observation of Outstretched Hands: 1= Tremor [place], Not Seen Yawning Observation: 0= None Anxiety or Irritability: 1=Feels Anxious/Irritable Goose Flesh Skin: 0=Smooth Skin COWS Score: 8 BHS Progress Note (SOAP) Subjective: pt was admitted yesterday for heroin detox, says he is feeling fine now. O: Vital Signs - 24 hr 08/06/18 08/06/18 08/06/18 18:32 21:15 21:48 Temperature 96.2 F L 96.2 F L 98.4 F Pulse Rate 84 84 71 Respiratory 18 18 18 Rate Blood Pressure 156/85 156/85 135/90 08/07/18 08/07/18 08/07/18 00:30 03:30 06:05 Temperature 97.1 F L Pulse Rate 70 Respiratory 18 18 18 Rate Blood Pressure 126/68 08/07/18 08/07/18 09:18 13:18 Temperature 98.9 F 96.9 F L Pulse Rate 72 66 Respiratory 18 18 Rate Blood Pressure 124/81 118/75 Laboratory Tests 08/07/18 08/07/18 08/07/18 06:30 06:30 06:30 WBC 6.7 RBC 4.13 Hgb 12.8 Hct 38.5 MCV 93.4 MCH 31.0 MCHC 33.2 RDW 12.9 Plt Count 229 MPV 9.0 Sodium 138 Potassium 3.6 Chloride 104 Carbon Dioxide 28 Anion Gap 6 L BUN 14.6 Creatinine 0.9 Est GFR (CKD-EPI)AfAm 119.97 Est GFR (CKD-EPI)NonAf 103.51 Random Glucose 84 Calcium 8.3 L Total Bilirubin 0.2 AST 13 L ALT 22 Alkaline Phosphatase 65 Total Protein 5.9 L Albumin 3.1 L RPR Titer Nonreactive a/p: continue heroin detox protocol- pt without complaints.
[2018-08-07] MEDS: THIAMINE HCL 100 MG TABLET (FP) PO SCH (22:19)
[2018-08-07] MEDS: MELATONIN 5 MG TABLETS PO PRN (22:21)
[2018-08-08] MEDS: ALBUTEROL SO4 8 GM HFA INHALER IH PRN (08:39)
[2018-08-08] MEDS ORDERED: METHADONE HCL 10 MG TABLET (FOR DETOX USE ONLY) PO ONE (10:00)
[2018-08-08] MEDS: NICOTINE 14 MG/24 HOURS TOPICAL PATCH TD SCH (10:12)
[2018-08-08] MEDS: PRENATAL VITAMINS W/ FOLIC ACID TABLET (FP) PO SCH (10:12)
[2018-08-08] MEDS: hydrOXYzine PAMOATE 25 MG CAPSULE (FP) PO PRN ×2 (10:15→18:38)
[2018-08-08] MEDS: METHOCARBAMOL 500 MG TABLET PO PRN ×2 (11:33→18:38)
--- NOTE | 2018-08-08 16:00 | PN ---
BHS COWS - Scale Resting Pulse: 0= [place] 80 or Below Sweatin= Chills/Flushing Restless Observation: 1= Difficult to Sit Still Pupil Size: 0= Normal to Room Light Bone or Joint Aches: 2= Severe Diffuse Aches Runny Nose/ Eye Tearin= None GI Upset > 30mins: 0= None Tremor Observation of Outstretched Hands: 0= None Yawning Observation: 1= 1-2x During Session Anxiety or Irritability: 2=Irritable/Anxious Goose Flesh Skin: 3=[place] COWS Score: 10 BHS Progress Note (SOAP) Subjective: Sweating, Body Aches, Anxious. Objective: PATIENT A & O X 3, OBSERVED AMBULATING ON UNIT UNASSISTED. IN NO ACUTE DISTRESS. 08/08/18 15:59 Vital Signs Temperature 98.2 F 08/08/18 13:14 Pulse Rate 71 08/08/18 13:14 Respiratory Rate 18 08/08/18 13:14 Blood Pressure 121/86 08/08/18 13:14 O2 Sat by Pulse Oximetry (%) Laboratory Tests 08/07/18 08/07/18 08/07/18 06:30 06:30 06:30 WBC 6.7 RBC 4.13 Hgb 12.8 Hct 38.5 MCV 93.4 MCH 31.0 MCHC 33.2 RDW 12.9 Plt Count 229 MPV 9.0 Sodium 138 Potassium 3.6 Chloride 104 Carbon Dioxide 28 Anion Gap 6 L BUN 14.6 Creatinine 0.9 Est GFR (CKD-EPI)AfAm 119.97 Est GFR (CKD-EPI)NonAf 103.51 Random Glucose 84 Calcium 8.3 L Total Bilirubin 0.2 AST 13 L ALT 22 Alkaline Phosphatase 65 Total Protein 5.9 L Albumin 3.1 L RPR Titer Nonreactive LABS NOTED. Assessment: 08/08/18 15:59 WITHDRAWAL SYMPTOMS. Plan: CONTINUE DETOX.
[2018-08-08] MEDS: MELATONIN 5 MG TABLETS PO PRN (22:17)
[2018-08-08] MEDS: THIAMINE HCL 100 MG TABLET (FP) PO SCH (22:17)
[2018-08-09] MEDS ORDERED: METHADONE HCL 5 MG TABLET (FOR DETOX USE ONLY) ONE (09:59)
[2018-08-09] MEDS ORDERED: METHADONE HCL 10 MG TABLET (FOR DETOX USE ONLY) ONE (09:59)
[2018-08-09] MEDS ORDERED: METHADONE (DETOX) 10 MG, METHADONE (DETOX) 5 MG PO ONE (10:00)
[2018-08-09] MEDS: hydrOXYzine PAMOATE 25 MG CAPSULE (FP) PO PRN ×2 (10:41→22:12)
[2018-08-09] MEDS: METHOCARBAMOL 500 MG TABLET PO PRN ×2 (10:41→22:13)
[2018-08-09] MEDS: PRENATAL VITAMINS W/ FOLIC ACID TABLET (FP) PO SCH (10:42)
[2018-08-09] MEDS: NICOTINE 14 MG/24 HOURS TOPICAL PATCH TD SCH (10:42)
--- NOTE | 2018-08-09 15:17 | PN ---
BHS COWS - Scale Resting Pulse: 0= [place] 80 or Below Sweatin= Chills/Flushing Restless Observation: 1= Difficult to Sit Still Pupil Size: 0= Normal to Room Light Bone or Joint Aches: 1= Mild Discomfort Runny Nose/ Eye Tearin= Nasal Congestion GI Upset > 30mins: 1= Stomach Cramp Tremor Observation of Outstretched Hands: 1= Tremor [place], Not Seen Yawning Observation: 1= 1-2x During Session Anxiety or Irritability: 1=Feels Anxious/Irritable Goose Flesh Skin: 0=Smooth Skin COWS Score: 8 BHS Progress Note (SOAP) Subjective: body aches mild anxious doing ok with methadone detox regimen social with peers on hallway Objective: 08/09/18 15:20 Vital Signs Temperature 97.8 F 08/09/18 13:17 Pulse Rate 73 08/09/18 13:17 Respiratory Rate 18 08/09/18 13:17 Blood Pressure 148/98 08/09/18 13:17 O2 Sat by Pulse Oximetry (%) Laboratory Last Values WBC 6.7 K/mm3 (4.0-10.0) 08/07/18 06:30 RBC 4.13 M/mm3 (4.00-5.60) 08/07/18 06:30 Hgb 12.8 GM/dL (11.7-16.9) 08/07/18 06:30 Hct 38.5 % (35.4-49) 08/07/18 06:30 MCV 93.4 fl (80-96) 08/07/18 06:30 MCH 31.0 pg (25.7-33.7) 08/07/18 06:30 MCHC 33.2 g/dl (32.0-35.9) 08/07/18 06:30 RDW 12.9 % (11.9-15.9) 08/07/18 06:30 Plt Count 229 K/MM3 (134-434) 08/07/18 06:30 MPV 9.0 fl (7.5-11.1) 08/07/18 06:30 Sodium 138 mmol/L (136-145) 08/07/18 06:30 Potassium 3.6 mmol/L (3.5-5.1) 08/07/18 06:30 Chloride 104 mmol/L (98-107) 08/07/18 06:30 Carbon Dioxide 28 mmol/L (21-32) 08/07/18 06:30 Anion Gap 6 MMOL/L (8-16) L 08/07/18 06:30 BUN 14.6 mg/dL (7-18) 08/07/18 06:30 Creatinine 0.9 mg/dL (0.55-1.3) 08/07/18 06:30 Est GFR (CKD-EPI)AfAm 119.97 08/07/18 06:30 Est GFR (CKD-EPI)NonAf 103.51 08/07/18 06:30 Random Glucose 84 mg/dL (74-106) 08/07/18 06:30 Calcium 8.3 mg/dL (8.5-10.1) L 08/07/18 06:30 Total Bilirubin 0.2 mg/dL (0.2-1) 08/07/18 06:30 AST 13 U/L (15-37) L 08/07/18 06:30 ALT 22 U/L (13-61) 08/07/18 06:30 Alkaline Phosphatase 65 U/L (45-117) 08/07/18 06:30 Total Protein 5.9 g/dl (6.4-8.2) L 08/07/18 06:30 Albumin 3.1 g/dl (3.4-5.0) L 08/07/18 06:30 RPR Titer Nonreactive (NONREACTIVE) 08/07/18 06:30 lab noted Assessment: 08/09/18 15:20 opiate withdrawal sx Plan: continue opiate detox
[2018-08-09] MEDS: THIAMINE HCL 100 MG TABLET (FP) PO SCH (22:12)
[2018-08-09] MEDS: MELATONIN 5 MG TABLETS PO PRN (22:12)
[2018-08-09] MEDS: ALBUTEROL SO4 8 GM HFA INHALER IH PRN (23:19)
[2018-08-10] MEDS ORDERED: METHADONE HCL 10 MG TABLET (FOR DETOX USE ONLY) PO ONE (10:00)
[2018-08-10] MEDS: NICOTINE 14 MG/24 HOURS TOPICAL PATCH TD SCH (10:11)
[2018-08-10] MEDS: PRENATAL VITAMINS W/ FOLIC ACID TABLET (FP) PO SCH (10:11)
[2018-08-10] MEDS: METHOCARBAMOL 500 MG TABLET PO PRN ×2 (10:13→22:11)
--- NOTE | 2018-08-10 13:28 | PN ---
BHS COWS - Scale Resting Pulse: 0= [place] 80 or Below Sweatin= No chills or Flushing Restless Observation: 1= Difficult to Sit Still Pupil Size: 1= Pupils >than Normal Bone or Joint Aches: 1= Mild Discomfort Runny Nose/ Eye Tearin= Nasal Congestion GI Upset > 30mins: 1= Stomach Cramp Tremor Observation of Outstretched Hands: 2= Slight Tremor Visible Yawning Observation: 1= 1-2x During Session Anxiety or Irritability: 2=Irritable/Anxious Goose Flesh Skin: 0=Smooth Skin COWS Score: 10 BHS Progress Note (SOAP) Subjective: alert,irritable,anxious,interrupted sleep,pain in the body, Objective: 08/10/18 13:27 Vital Signs Temperature 96.9 F L 08/10/18 09:13 Pulse Rate 78 08/10/18 09:13 Respiratory Rate 18 08/10/18 09:13 Blood Pressure 120/75 08/10/18 09:13 O2 Sat by Pulse Oximetry (%) Assessment: 08/10/18 13:27 withdrawal symptom Plan: continue detox,discharge in am
[2018-08-10] MEDS: ALBUTEROL SO4 8 GM HFA INHALER IH PRN (20:47)
[2018-08-10] MEDS: THIAMINE HCL 100 MG TABLET (FP) PO SCH (22:10)
[2018-08-10] MEDS: MELATONIN 5 MG TABLETS PO PRN (22:11)
[2018-08-11] MEDS ORDERED: METHADONE HCL 5 MG TABLET (FOR DETOX USE ONLY) PO ONE (06:00)
[2018-08-11 09:37] VITALS: BP 125/81; PULSE 64; TEMP 97.1
--- NOTE | 2018-08-11 14:17 | DS ---
[facility] Detox Discharge Summary Admission Date: 08/06/18 Discharge Date: 08/11/18 - History Present History: Cannabis Dependence, Opioid Dependence Additional Comments: PATIENT REFERRED TO [facility] ([place], [place]) FOR AFTERCARE. PATIENT WAS DISCHARGED FROM DETOX UNIT IN STABLE MEDICAL CONDITION. Pertinent Past History: Asthma, History Of Renal Calculi, HTN, Depression, Nicotine Dependence. - Physical Exam Results Vital Signs: Vital Signs Temperature 97.1 F L 08/11/18 09:36 Pulse Rate 64 08/11/18 09:36 Respiratory Rate 18 08/11/18 09:36 Blood Pressure 125/81 08/11/18 09:36 O2 Sat by Pulse Oximetry (%) Pertinent Admission Physical Exam Findings: WITHDRAWAL SYMPTOMS. Laboratory Tests 08/07/18 08/07/18 08/07/18 06:30 06:30 06:30 WBC 6.7 RBC 4.13 Hgb 12.8 Hct 38.5 MCV 93.4 MCH 31.0 MCHC 33.2 RDW 12.9 Plt Count 229 MPV 9.0 Sodium 138 Potassium 3.6 Chloride 104 Carbon Dioxide 28 Anion Gap 6 L BUN 14.6 Creatinine 0.9 Est GFR (CKD-EPI)AfAm 119.97 Est GFR (CKD-EPI)NonAf 103.51 Random Glucose 84 Calcium 8.3 L Total Bilirubin 0.2 AST 13 L ALT 22 Alkaline Phosphatase 65 Total Protein 5.9 L Albumin 3.1 L RPR Titer Nonreactive LABS NOTED. - Treatment Hospital Course: Detox Protocol Followed, Detoxed Safely, Responded well, Discharged Condition Good Patient has Accepted a Rehab Referral to: PATIENT GOING TO [facility] ([place], [place]). - Medication Discharge Medications: Ambulatory Orders Albuterol Sulfate Inhaler - [Ventolin HFA Inhaler -] 1 - 2 puff IH Q4H PRN #1 inhaler 08/11/18 - Diagnosis (1) Asthma Status: Chronic Qualifiers: Asthma severity: mild Asthma persistence: intermittent Asthma complication type: uncomplicated Qualified Code(s): J45.20 - Mild intermittent asthma, uncomplicated (2) Cannabis dependence, uncomplicated Status: Chronic (3) Depression (emotion) Status: Chronic Qualifiers: Depression Type: unspecified Qualified Code(s): F32.9 - Major depressive disorder, single episode, unspecified (4) HTN (hypertension) Status: Chronic Qualifiers: Hypertension type: essential hypertension Qualified Code(s): I10 - Essential (primary) hypertension (5) Kidney stones Status: Chronic (6) Nicotine dependence Status: Chronic Qualifiers: Nicotine product type: cigarettes Substance use status: uncomplicated Qualified Code(s): F17.210 - Nicotine dependence, cigarettes, uncomplicated (7) Opioid dependence with withdrawal Status: Chronic - AMA Did Patient Leave Against Medical Advice: No
== END 2018-08-11 09:43 | disposition home or self-care (01) | DRG 773 ==
LOC: YASAS 15:26 → Y3N 21:11
PROVIDERS: ADMIT Surgery; ATTEND Surgery
PROC: HZ2ZZZZ Detoxification Services for Substance Abuse Treatment (ICD-10-PCS; principal; 2018-08-06)
DX: F11.23 Opioid dependence with withdrawal (principal); F12.20 Cannabis dependence, uncomplicated; F17.210 Nicotine dependence, cigarettes, uncomplicated; F34.1 Dysthymic disorder; F32.9 Major depressive disorder, single episode, unspecified; I10 Essential (primary) hypertension; J45.20 Mild intermittent asthma, uncomplicated; Z87.442 Personal history of urinary calculi
CPT/HCPCS: 36415; 80053; 85027; 86593; J0735

== ENCOUNTER 2018-08-29 10:31 | Inpatient (IN) | payer OTHER | END 2018-09-03 09:13 | disposition home or self-care (01) | LOC: YASAS 10:31 → Y3N 14:53 ==

== ENCOUNTER 2018-09-05 08:43 | Inpatient (IN) | payer OTHER ==
[2018-09-05 09:18] VITALS: BMI 28.4
--- NOTE | 2018-09-05 10:22 | HP ---
COWS - Scale Resting Pulse: 0= [place] 80 or Below Sweatin= No chills or Flushing Restless Observation: 0= Sits Still Pupil Size: 0= Normal to Room Light Bone or Joint Aches: 1= Mild Discomfort Runny Nose/ Eye Tearin= Nasal Congestion GI Upset > 30mins: 0= None Tremor Observation: 0= None Yawning Observation: 0= None Anxiety or Irritability: 0= None Goose Flesh Skin: 0=Smooth Skin COWS Score: 2 CIWA Score - Admission Criteria OASAS Guidelines: Admission for Medically Managed Detox: Requires at least one of the followin. CIWA greater than 12 2. Seizures within the past 24 hours 3. Delirium tremens within the past 24 hours 4. Hallucinations within the past 24 hours 5. Acute intervention needed for co occurring medical disorder 6. Acute intervention needed for co occurring psychiatric disorder 7. Severe withdrawal that cannot be handled at a lower level of care (continued vomiting, continued diarrhea, abnormal vital signs) requiring intravenous medication and/or fluids 8. Admission ROS S - HPI Chief Complaint: i am here for rehab from heroin and marijuana Allergies/Adverse Reactions: Allergies Allergy/AdvReac Type Severity Reaction Status Date / Time No Known Allergies Allergy Verified 08/29/18 15:15 History of Present Illness: this 42 years old male with multiple admissions in detox,last completed from to 09/03/18 here for rehab nicotine dependence 10 cigarette,would like to have nicotine patch and gum longest period of sobriety 1 and half year plan for rehab Exam Limitations: No Limitations - Ebola screening Have you traveled outside of the country in the last 21 days: No Have you had contact with anyone from an Ebola affected area: No - Review of Systems Constitutional: No Symptoms Reported EENT: reports: No Symptoms Reported Respiratory: reports: No Symptoms reported GI: reports: No Symptoms Reported : reports: No Symptoms Reported Musculoskeletal: reports: No Symptoms Reported Integumentary: reports: No Symptoms Reported Neuro: reports: No Symptoms reported Endocrine: reports: No Symptoms Reported Hematology: reports: No Symptoms Reported Psychiatric: reports: No Sypmtoms Reported Other Systems: Reviewed and Negative Patient History - Patient Medical History Hx Anemia: No Hx Asthma: Yes (since childhood) Hx Chronic Obstructive Pulmonary Disease (COPD): No Hx Cancer: No Hx Cardiac Disorders: No Hx Congestive Heart Failure: No Hx Hypertension: No Hx Hypercholesterolemia: No Hx Pacemaker: No HX Cerebrovascular Accident: No Hx Seizures: No Hx Dementia: No Hx Diabetes: No Hx Gastrointestinal Disorders: No Hx Liver Disease: No Hx Genitourinary Disorders: No Hx Sexually Transmitted Disorders: No Hx Renal Disease (ESRD): No Hx Thyroid Disease: No Hx Human Immunodeficiency Virus (HIV): No (Last Tested: 08/30/18 negative) Hx Hepatitis C: No (Last Tested: 04/2017: NEGATIVE.) Hx Depression: No Hx Suicide Attempt: No Hx Bipolar Disorder: No Hx Schizophrenia: No Other Medical History: no suicidal,no homicidal - Patient Surgical History Past Surgical History: No Hx Neurologic Surgery: No Hx Cataract Extraction: No Hx Cardiac Surgery: No Hx Lung Surgery: No Hx Breast Surgery: No Hx Breast Biopsy: No Hx Abdominal Surgery: No Hx Appendectomy: No Hx Cholecystectomy: No Hx Genitourinary Surgery: No Hx Section: No Hx Orthopedic Surgery: No Other Surgical History: DENIES. Anesthesia Reaction: No - PPD History Previous Implant?: Yes Documented Results: Negative w/proof Implanted On Prior [facility] Admission?: Yes Date: 07/21/18 Results: 0 mm PPD to be Administered?: No - Smoking Cessation Smoking history: Current every day smoker Have you smoked in the past 12 months: Yes Aproximately how many cigarettes per day: 10 Cigars Per Day: 0 Hx Chewing Tobacco Use: No Initiated information on smoking cessation: Yes 'Breaking Loose' booklet given: 09/05/18 - Substance & Tx. History Hx Alcohol Use: No Hx Substance Use: Yes Substance Use Type: Heroin, Tranquilizers Hx Substance Use Treatment: Yes ([facility] 08/29/18 to 09/03/18) - Substances abused Heroin Other (specify): detox, Substance route: Injection Frequency: Daily Amount used: 5-7 bags Age of first use: 38 Date of last use: 08/28/18 Marijuana/Hashish Substance route: Smoking Frequency: 1-3 times last 30 days Amount used: 1 joint Age of first use: 16 Date of last use: 08/15/18 Alcohol Substance route: Oral Frequency: 1-3 times last 30 days Amount used: 3/6 packs beer. Age of first use: 38 Date of last use: 08/26/18 Family Disease History - Family Disease History Family Disease History: CA: Mother (Pancreatic Ca - alive. ), Other: Father ( , etoh, drugs), Mother, Brother (1 - living, healthy), Sister (2 - living, ), Son (one - age 11, living ,healthy), Daughter (one age 12, living , healthy) Admission Physical Exam [facility] - Vital Signs Vital Signs: Vital Signs - 24 hr 09/05/18 09:02 Temperature 98.7 F Pulse Rate 69 Respiratory 18 Rate Blood Pressure 132/89 - Physical General Appearance: Yes: Within Normal Limits HEENTM: Yes: Normal ENT Inspection, LIDIA, Pharynx Normal Respiratory: Yes: Lungs Clear, Normal Breath Sounds, No Respiratory Distress Neck: Yes: Within Normal Limits, Supple, Trachea in good position Cardiology: Yes: Within Normal Limits, Regular Rhythm, Regular Rate, S1, S2 Abdominal: Yes: Within Normal Limits, Normal Bowel Sounds, Non Tender, Flat Genitourinary: Yes: Within Normal Limits Musculoskeletal: Yes: Within Normal Limits, Back pain Extremities: Yes: Within Normal Limits Neurological: Yes: gastrointestinal technician II-XII NML intact, Fully Oriented, Alert, Motor Strength 5/5 Integumentary: Yes: Within Normal Limits Lymphatic: Yes: Within Normal Limits - Diagnostic (1) Opioid dependence Current Visit: Yes Status: Acute (2) Cannabis dependence Current Visit: Yes Status: Acute (3) Nicotine dependence Current Visit: No Status: Acute Qualifiers: Nicotine product type: cigarettes Substance use status: in withdrawal Qualified Code(s): F17.213 - Nicotine dependence, cigarettes, with withdrawal Comment: counseled cessation - interested in gum - same Rx (4) Asthma Current Visit: No Status: Chronic Qualifiers: Asthma severity: mild Asthma persistence: intermittent Asthma complication type: uncomplicated Qualified Code(s): J45.20 - Mild intermittent asthma, uncomplicated Comment: has inhaler (5) Insomnia Current Visit: Yes Status: Acute (6) Alcohol dependence Current Visit: Yes Status: Acute Cleared for Admission S - Detox or Rehab Claeared for Rehab Admission: Yes Breathalyzer - Breathalyzer Breathalyzer: 0 Urine Drug Screen - Test Device Lot number: [id number] Expiration date: 06/05/20 - Control Is test valid?: Yes - Results Drug screen NEGATIVE: No Urine drug screen results: THC-Marijuana, MOP-Opiates Inpatient Rehab Admission - Rehab Decision to Admit Inpatient rehab admission?: Yes - Initial Determination Are CD services needed?: Yes Free of communicable disease: Yes Not in need of hospitalization: Yes - Rehab Admission Criteria Previous failed treatment: Yes Poor recovery environment: Yes Comorbidities: Yes Lacks judgement: No Patient is meeting Inpatient Rehab admission criteria:: Yes
[2018-09-05] MEDS ORDERED: MAGNESIUM CITRATE 300 ML BOTTLE PO PRN (10:31)
[2018-09-05] MEDS ORDERED: guaiFENesin 200 MG/10 ML 10 ML UNIT-DOSE CUPS PO PRN (10:31)
[2018-09-05] MEDS ORDERED: MAGNESIUM HYDROX 2400MG/30ML ORAL SUSPENSION 30 ML CUP PO PRN (10:31)
[2018-09-05] MEDS ORDERED: NICOTINE POLACRILEX 2 MG GUM BUC PRN (10:31)
[2018-09-05] MEDS ORDERED: ACETAMINOPHEN 325 MG TABLET (FP) PO PRN (10:31)
[2018-09-05] MEDS ORDERED: LOPERAMIDE HCL 2 MG CAPSULE PO PRN (10:31)
[2018-09-05] MEDS ORDERED: MENTHOL/PHENOL 1 EACH UD MM PRN (10:31)
[2018-09-05] MEDS ORDERED: MAG HYDROX/AL HYDROX/SIMETH 30 ML UNIT-DOSE CUP PO PRN (10:31)
[2018-09-05] MEDS ORDERED: P-EPHED 60MG/TRIPROLIDI 2.5MG TABLET PO PRN (10:31)
[2018-09-05] MEDS ORDERED: IBUPROFEN 400 MG TABLET (FP) PO PRN (10:31)
[2018-09-05] MEDS: NICOTINE 21 MG/24 HOURS TOPICAL PATCH TD SCH (11:39)
[2018-09-05] MEDS: METHOCARBAMOL 500 MG TABLET PO PRN (11:40)
[2018-09-05] MEDS: hydrOXYzine PAMOATE 50 MG CAPSULE (FP) PO PRN (11:41)
[2018-09-05] MEDS ORDERED: THIAMINE HCL 100 MG TABLET (FP) PO SCH (22:00)
[2018-09-05] MEDS ORDERED: MELATONIN 5 MG TABLETS PO PRN (22:00)
[2018-09-06 06:56] VITALS: BP 127/80; PULSE 63; TEMP 97.4
[2018-09-06] MEDS ORDERED: PRENATAL VITAMINS W/ FOLIC ACID TABLET (FP) PO SCH (10:00)
[2018-09-06] MEDS: NICOTINE 21 MG/24 HOURS TOPICAL PATCH TD SCH (11:07)
--- NOTE | 2018-09-06 12:08 | PN ---
S Progress Note (SOAP) Subjective: PT IS A 42 Y/O MALE ADMITTED ON 09/05/18 TO REHAB FOR HEROIN USE DISORDER. PT DETOXED ON 3 NORTH FROM 08/29/18 TO 09/03/18 AND REFERRED TO [facility] WHERE HE WAS ON SUBOXONE 8 MG/2MG SL DAILY. PT REPORTS HE DID NOT TAKE ANY OF THE 7 FILMS GIVEN ON 09/03/18 BEFORE COMING BACK HERE FOR REHAB. DENIES USE OF METHADONE OR HEROIN AFTER DISCHARGE FROM DETOX. LAST METHADONE 5 MG HE REPORTS WAS IN DETOX ON DISCHARGE. PT DID NOT MENTION ON ADMISSION STATING"THEY DID NOT ASK ME". TODAY, PT C/O SWEATS AND SLIGHT BODY ACHES AND WANTS TO RESTART SUBOXONE. Objective: 09/06/18 12:51 ALERT O X 3 OOB AMBULATING WITH STEADY GAIT. HEENT:EOMI,PERRLA, NECK:SUPPLE HEART:S1 S2, RRR LUNGS:CTA,HAJA ABDOMEN:+BS, SOFT, EXT:NO E/C/C Vital Signs - 24 hr 09/06/18 09/06/18 09/06/18 00:30 03:30 06:54 Temperature 97.4 F L Pulse Rate 63 Respiratory 19 18 18 Rate Blood Pressure 127/80 Others' Prescriptions Patient Name: Bertin Beard Date: 1975 Address: [address] [place] [address] Sex: Male Rx Written Rx Dispensed Drug Quantity Days Supply Prescriber Name 09/03/2018 09/03/2018 buprenorphine-naloxone 8-2 mg sl film 7 7 Aliyah Moon NP, PHD 08/13/2018 08/13/2018 buprenorphine-naloxone 8-2 mg sl film 4 4 Aliyah Moon NP, PHD * Assessment: 09/06/18 12:52 SUBSTANCE USE DISORDER Plan: D/W PT ABOUT RESTARTING SUBOXONE TODAY. PT WANTS TO START WITH 4MG / 1MG SL DAILY AND INCREASE NEEDED. D/W PT WILL F/U WITH SUBOXONE PROVIDER, ALIYAH MOON AT [facility] AFTER REHAB TREATMENT.
[2018-09-06] MEDS: METHOCARBAMOL 500 MG TABLET PO PRN (12:35)
[2018-09-06] MEDS: hydrOXYzine PAMOATE 50 MG CAPSULE (FP) PO PRN (12:36)
--- NOTE | 2018-09-06 14:29 | PN ---
[facility] Progress Note Note: PT CAME BACK TO THE NURSING STATION TO REQUEST HE WANTS TO LEAVE BECAUSE HE WANTS TO GO BACK TO WORK. ALL EFFORTS TO ENCOURAGE PATIENT TO STAY IN TREATMENT FAILED. PT WAS INSTRUCTED TO SEE HIS COUNSELOR ANNMARIE INTERIANO. PT WILL BE RETURNING TO [facility], [address] [place] [address] FOR CD AFTERCARE. THIS SUPERVISOR [employer]ATE [employer]ITT[employer] HAS CONTACTED PT'S SUBOXONE PRESCRIBER, LOU MOON,Phd TO INFORM HER PT IS SIGNING OUT TODAY AND HAS BEEN INSTRUCTED TO FOLLOW UP WITH SUBOXONE MAT AT THE CLINIC. ADDENDUM: PT REPORTS HE HAS THE 7 FILMS OF SUBOXONE AT HOME. Vital Signs (72 hours) 09/05/18 09/06/18 09/06/18 09:02 00:30 03:30 Temperature 98.7 F Pulse Rate 69 Respiratory 18 19 18 Rate Blood Pressure 132/89 09/06/18 06:54 Temperature 97.4 F L Pulse Rate 63 Respiratory 18 Rate Blood Pressure 127/80 ALERT O X 3. AMBULATES WITH STEADY GAIT. NAD PLAN;PT SIGNED OUT AMA
== END 2018-09-06 15:00 | disposition left against medical advice (07) | DRG 770 ==
LOC: YASAS 08:43 → Y5N 10:24
PROVIDERS: ADMIT Neuromusculoskeletal Medicine & OMM; ATTEND Neuromusculoskeletal Medicine & OMM
PROC: HZ42ZZZ Group Counseling for Substance Abuse Treatment, Cognitive-Behavioral (ICD-10-PCS; principal; 2018-09-05)
DX: F11.20 Opioid dependence, uncomplicated (principal); F10.20 Alcohol dependence, uncomplicated; F12.20 Cannabis dependence, uncomplicated; F17.213 Nicotine dependence, cigarettes, with withdrawal; G47.00 Insomnia, unspecified; Z87.09 Personal history of other diseases of the respiratory system

== ENCOUNTER 2018-10-22 09:01 | Inpatient (IN) | payer OTHER ==
[2018-10-22 09:31] VITALS: BMI 27.7
--- NOTE | 2018-10-22 10:11 | HP ---
COWS - Scale Resting Pulse: 1= [place] 81-100 Sweatin= No chills or Flushing Restless Observation: 1= Difficult to Sit Still Pupil Size: 1= Pupils >than Normal Bone or Joint Aches: 2= Severe Diffuse Aches Runny Nose/ Eye Tearin= Runny Nose/Eyes GI Upset > 30mins: 3= Vomiting/Diarrhea Tremor Observation: 2= Slight Tremor Visible Yawning Observation: 1= 1-2x During Session Anxiety or Irritability: 2=Irritable/Anxious Goose Flesh Skin: 0=Smooth Skin COWS Score: 15 CIWA Score - Admission Criteria OASAS Guidelines: Admission for Medically Managed Detox: Requires at least one of the followin. CIWA greater than 12 2. Seizures within the past 24 hours 3. Delirium tremens within the past 24 hours 4. Hallucinations within the past 24 hours 5. Acute intervention needed for co occurring medical disorder 6. Acute intervention needed for co occurring psychiatric disorder 7. Severe withdrawal that cannot be handled at a lower level of care (continued vomiting, continued diarrhea, abnormal vital signs) requiring intravenous medication and/or fluids 8. Admission ROS [facility] Chief Complaint: " I want to be detoxed from heroin. I overdosed 2-3 days ago and seen in [facility]." Allergies/Adverse Reactions: Allergies Allergy/AdvReac Type Severity Reaction Status Date / Time No Known Allergies Allergy Verified 10/22/18 09:26 History of Present Illness: 42 year old male with history of multiple detox but without follow through in outpatient treatment programs. After his last attempt to be admitted here in 09/11/18, he relapsed and continue to use heroin. He never follow up with referral to new focus. He is using 5 bags of heroin daily, last used yesterday 2 bags. He has been using since 3 years ago. He overdosed and had to be given narcan 2-3 days ago and seen in ER at [facility]. He is homeless and has no support systems in place. He is not in the custodial system. He is on the streets. He has no legal pending issues. He is smoking 5 ciggs per day, last time smoked yesterday. He denies other substances of abuse. PMH: Asthma, Kidney stones, Psurg Hx: None All: None Exam Limitations: No Limitations - Ebola screening Have you traveled outside of the country in the last 21 days: No Have you had contact with anyone from an Ebola affected area: No Have you been sick,other than usual withdrawal symptoms: No Do you have a fever: No - Review of Systems Constitutional: Chills, Diaphoresis EENT: reports: No Symptoms Reported Respiratory: reports: Shortness of Breath, Wheezing, Other (slight wheeze but relieved with inhaler) Cardiac: reports: No Symptoms Reported GI: reports: Diarrhea, Nausea, Vomiting : reports: No Symptoms Reported Musculoskeletal: reports: Back Pain, Muscle Pain Integumentary: reports: No Symptoms Reported Neuro: reports: Headache Endocrine: reports: No Symptoms Reported Hematology: reports: No Symptoms Reported Psychiatric: reports: Depressed Other Systems: Reviewed and Negative Patient History - Patient Medical History Hx Anemia: No Hx Asthma: Yes (since childhood) Hx Chronic Obstructive Pulmonary Disease (COPD): No Hx Cancer: No Hx Cardiac Disorders: No Hx Congestive Heart Failure: No Hx Hypertension: No Hx Hypercholesterolemia: No Hx Pacemaker: No HX Cerebrovascular Accident: No Hx Seizures: No Hx Dementia: No Hx Diabetes: No Hx Gastrointestinal Disorders: No Hx Liver Disease: No Hx Genitourinary Disorders: No Hx Sexually Transmitted Disorders: No Hx Renal Disease (ESRD): No Hx Thyroid Disease: No Hx Human Immunodeficiency Virus (HIV): No (Last Tested: 08/30/18 negative) Hx Hepatitis C: No (Last Tested: 04/2017: NEGATIVE.) Hx Depression: No Hx Suicide Attempt: No Hx Bipolar Disorder: No Hx Schizophrenia: No - Patient Surgical History Past Surgical History: No Hx Neurologic Surgery: No Hx Cataract Extraction: No Hx Cardiac Surgery: No Hx Lung Surgery: No Hx Breast Surgery: No Hx Breast Biopsy: No Hx Abdominal Surgery: No Hx Appendectomy: No Hx Cholecystectomy: No Hx Genitourinary Surgery: No Hx Section: No Hx Orthopedic Surgery: No Other Surgical History: DENIES. Anesthesia Reaction: No - PPD History Previous Implant?: Yes Documented Results: Negative w/proof Implanted On Prior R Admission?: Yes Date: 07/21/18 Results: 0 mm PPD to be Administered?: No - Reproductive History Patient is a Female of Child Bearing Age (11 -55 yrs old): No - Smoking Cessation Smoking history: Current every day smoker Have you smoked in the past 12 months: Yes Aproximately how many cigarettes per day: 10 Cigars Per Day: 0 Hx Chewing Tobacco Use: No Initiated information on smoking cessation: Yes 'Breaking Loose' booklet given: 10/22/18 - Substances abused Heroin Other (specify): detox, Substance route: Inhalation Frequency: Daily Amount used: 5 bags Age of first use: 38 Date of last use: 10/21/18 Marijuana/Hashish Substance route: Smoking Frequency: 1-3 times last 30 days Amount used: 1 joint Age of first use: 16 Date of last use: 09/11/18 Alcohol Substance route: Oral Frequency: 1-3 times last 30 days Amount used: 3/6 packs beer. Age of first use: 38 Date of last use: 08/26/18 Family Disease History - Family Disease History Family Disease History: CA: Mother (Pancreatic Ca - alive. ), Other: Father ( , etoh, drugs), Mother, Brother (1 - living, healthy), Sister (2 - living, ), Son (one - age 11, living ,healthy), Daughter (one age 12, living , healthy) Admission Physical Exam [facility] - Vital Signs Vital Signs: Vital Signs - 24 hr 10/22/18 09:25 Temperature 97.7 F Pulse Rate 84 Respiratory 18 Rate Blood Pressure 150/95 - Physical General Appearance: Yes: No Apparent Distress, Nourished, Appropriately Dressed HEENTM: Yes: EOMI, Hearing grossly Normal, Normocephalic, Normal Voice, LIDIA, Pharynx Normal Respiratory: Yes: Chest Non-Tender, Wheezing Neck: Yes: No masses,lesions,Nodules Breast: Yes: Within Normal Limits, Axillae without masses, No Discharge Cardiology: Yes: Regular Rhythm, Regular Rate, S1, S2 Abdominal: Yes: Non Tender, Increased Bowel Sounds. 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, Fully Oriented, Alert, Motor Strength 5/5, Normal Mood/Affect, Normal Response Integumentary: Yes: Normal Color, Warm Lymphatic: Yes: Within Normal Limits - Diagnostic (1) Opioid dependence with withdrawal Current Visit: Yes Status: Acute (2) Asthma Current Visit: Yes Status: Chronic Qualifiers: Asthma severity: mild Asthma persistence: intermittent Asthma complication type: uncomplicated Qualified Code(s): J45.20 - Mild intermittent asthma, uncomplicated Comment: has inhaler (3) Depression (emotion) Current Visit: Yes Status: Chronic Qualifiers: Depression Type: unspecified Qualified Code(s): F32.9 - Major depressive disorder, single episode, unspecified (4) History of asthma Current Visit: No Status: Chronic (5) Kidney stones Current Visit: No Status: Chronic (6) Nicotine dependence Current Visit: Yes Status: Chronic Qualifiers: Nicotine product type: cigarettes Substance use status: in withdrawal Qualified Code(s): F17.213 - Nicotine dependence, cigarettes, with withdrawal Comment: counseled cessation - interested in gum - same Rx Breathalyzer - Breathalyzer Breathalyzer: 0 Vital Signs - Vital Signs Vital signs refused: No Temperature: 97.7 F Temperature source: Oral Pulse Rate: 84 Respiratory Rate: 18 Blood Pressure: 150/95 BP Location: Left Arm Blood Pressure position: Sitting - Height Height: 5 ft 9 in - Weight Weight: 188 lb Weight measurement method: Standing scale - BMI Body Mass Index (BMI): 27.7 - Bowel Function Bowel Movement: Yes Urine Drug Screen - Test Device Lot number: [id number] Expiration date: 07/06/20 - Control Is test valid?: Yes - Results Drug screen NEGATIVE: No Urine drug screen results: MOP-Opiates Inpatient Rehab Admission - Rehab Decision to Admit Inpatient rehab admission?: No
[2018-10-22] MEDS ORDERED: MENTHOL/PHENOL 1 EACH UD MM PRN (10:16)
[2018-10-22] MEDS ORDERED: MAG HYDROX/AL HYDROX/SIMETH 30 ML UNIT-DOSE CUP PO PRN (10:16)
[2018-10-22] MEDS ORDERED: ACETAMINOPHEN 325 MG TABLET (FP) PO PRN ×2 (10:16)
[2018-10-22] MEDS ORDERED: MAGNESIUM HYDROX 2400MG/30ML ORAL SUSPENSION 30 ML CUP PO PRN (10:16)
[2018-10-22] MEDS ORDERED: BISMUTH SUBSALICYLATE 524 MG/30 ML UD PO PRN (10:16)
[2018-10-22] MEDS ORDERED: cloNIDine HCL 0.1 MG TABLET PO PRN (10:16)
[2018-10-22] MEDS ORDERED: IBUPROFEN 400 MG TABLET (FP) PO PRN (10:16)
[2018-10-22] MEDS ORDERED: MAGNESIUM CITRATE 300 ML BOTTLE PO PRN (10:16)
[2018-10-22] MEDS ORDERED: METHADONE HCL 10 MG TABLET (FOR DETOX USE ONLY) PO ONE (11:15)
[2018-10-22] MEDS: NICOTINE 7 MG/24 HOURS TOPICAL PATCH TD SCH (11:34)
[2018-10-22 11:52] LABS: HEMATOCRIT 40.1 % (35.4-49); HEMOGLOBIN 13.2 GM/dL (11.7-16.9); MCH 30.9 pg (25.7-33.7); MCHC 32.9 g/dl (32.0-35.9); MEAN CELL VOLUME 93.9 fl (80-96); MEAN PLT VOLUME 8.9 fl (7.5-11.1); PLATELET COUNT 286 K/MM3 (134-434); RBC 4.27 M/mm3 (4.00-5.60); RDW 13.7 % (11.9-15.9); WHITE BLOOD COUNT 8.5 K/mm3 (4.0-10.0)
[2018-10-22 12:23] LABS: ALBUMIN 3.7 g/dl (3.4-5.0); BILIRUBIN,TOTAL 0.4 mg/dL (0.2-1); BLOOD UREA NITROGEN 14.8 mg/dL (7-18); CALCIUM 9.1 mg/dL (8.5-10.1); CREATININE 0.9 mg/dL (0.55-1.3); TOT PROT 7.1 g/dl (6.4-8.2)
[2018-10-22] MEDS ORDERED: ALBUTEROL SO4 8 GM HFA INHALER IH ONE (19:40)
[2018-10-22] MEDS: THIAMINE HCL 100 MG TABLET (FP) PO SCH (22:24)
[2018-10-22] MEDS: hydrOXYzine PAMOATE 25 MG CAPSULE (FP) PO PRN (22:25)
[2018-10-22] MEDS: METHOCARBAMOL 500 MG TABLET PO PRN (22:25)
[2018-10-22] MEDS: MELATONIN 5 MG TABLETS PO PRN (22:26)
[2018-10-22] MEDS ORDERED: ALBUTEROL SO4 8 GM HFA INHALER IH PRN (23:39)
[2018-10-23] MEDS ORDERED: METHADONE HCL 10 MG TABLET (FOR DETOX USE ONLY) ONE (09:52)
[2018-10-23] MEDS ORDERED: METHADONE HCL 5 MG TABLET (FOR DETOX USE ONLY) ONE (09:53)
[2018-10-23] MEDS ORDERED: METHADONE (DETOX) 20 MG, METHADONE (DETOX) 5 MG PO ONE (10:00)
[2018-10-23] MEDS: PRENATAL VITAMINS W/ FOLIC ACID TABLET (FP) PO SCH (10:16)
[2018-10-23] MEDS: NICOTINE 7 MG/24 HOURS TOPICAL PATCH TD SCH (10:18)
[2018-10-23] MEDS: hydrOXYzine PAMOATE 25 MG CAPSULE (FP) PO PRN ×2 (10:18→22:13)
[2018-10-23] MEDS: METHOCARBAMOL 500 MG TABLET PO PRN ×2 (10:18→22:14)
--- NOTE | 2018-10-23 10:24 | PN ---
S COWS - Scale Resting Pulse: 0= IN 80 or Below Sweatin= No chills or Flushing Restless Observation: 1= Difficult to Sit Still Pupil Size: 1= Pupils >than Normal Bone or Joint Aches: 2= Severe Diffuse Aches Runny Nose/ Eye Tearin= Nasal Congestion GI Upset > 30mins: 1= Stomach Cramp Tremor Observation of Outstretched Hands: 2= Slight Tremor Visible Yawning Observation: 1= 1-2x During Session Anxiety or Irritability: 2=Irritable/Anxious Goose Flesh Skin: 0=Smooth Skin COWS Score: 11 S Progress Note (SOAP) Subjective: alert,irritable,anxious,interrupted sleep,pain in the body and back Objective: 10/23/18 10:23 Vital Signs Temperature 97.3 F L 10/23/18 09:12 Pulse Rate 76 10/23/18 09:12 Respiratory Rate 18 10/23/18 09:12 Blood Pressure 123/76 10/23/18 09:12 O2 Sat by Pulse Oximetry (%) 10/23/18 10:23 Laboratory Last Values WBC 8.5 K/mm3 (4.0-10.0) 10/22/18 10:10 RBC 4.27 M/mm3 (4.00-5.60) 10/22/18 10:10 Hgb 13.2 GM/dL (11.7-16.9) 10/22/18 10:10 Hct 40.1 % (35.4-49) 10/22/18 10:10 MCV 93.9 fl (80-96) 10/22/18 10:10 MCH 30.9 pg (25.7-33.7) 10/22/18 10:10 MCHC 32.9 g/dl (32.0-35.9) 10/22/18 10:10 RDW 13.7 % (11.9-15.9) 10/22/18 10:10 Plt Count 286 K/MM3 (134-434) D 10/22/18 10:10 MPV 8.9 fl (7.5-11.1) 10/22/18 10:10 Sodium 139 mmol/L (136-145) 10/22/18 10:10 Potassium 4.0 mmol/L (3.5-5.1) 10/22/18 10:10 Chloride 103 mmol/L (98-107) 10/22/18 10:10 Carbon Dioxide 27 mmol/L (21-32) 10/22/18 10:10 Anion Gap 9 MMOL/L (8-16) 10/22/18 10:10 BUN 14.8 mg/dL (7-18) 10/22/18 10:10 Creatinine 0.9 mg/dL (0.55-1.3) 10/22/18 10:10 Est GFR (CKD-EPI)AfAm 119.97 10/22/18 10:10 Est GFR (CKD-EPI)NonAf 103.51 10/22/18 10:10 Random Glucose 94 mg/dL (74-106) 10/22/18 10:10 Calcium 9.1 mg/dL (8.5-10.1) 10/22/18 10:10 Total Bilirubin 0.4 mg/dL (0.2-1) 10/22/18 10:10 AST 16 U/L (15-37) 10/22/18 10:10 ALT 25 U/L (13-61) 10/22/18 10:10 Alkaline Phosphatase 75 U/L (45-117) 10/22/18 10:10 Total Protein 7.1 g/dl (6.4-8.2) 10/22/18 10:10 Albumin 3.7 g/dl (3.4-5.0) 10/22/18 10:10 RPR Titer Nonreactive (NONREACTIVE) 10/22/18 10:10 Assessment: 10/23/18 10:23 withdrawal symptom Plan: continue detox methadone regimen
[2018-10-23] MEDS: THIAMINE HCL 100 MG TABLET (FP) PO SCH (22:12)
[2018-10-23] MEDS: MELATONIN 5 MG TABLETS PO PRN (22:13)
[2018-10-24] MEDS ORDERED: METHADONE HCL 10 MG TABLET (FOR DETOX USE ONLY) PO ONE (10:00)
[2018-10-24] MEDS: PRENATAL VITAMINS W/ FOLIC ACID TABLET (FP) PO SCH (10:10)
[2018-10-24] MEDS: NICOTINE 7 MG/24 HOURS TOPICAL PATCH TD SCH (10:11)
--- NOTE | 2018-10-24 14:47 | PN ---
BHS COWS - Scale Resting Pulse: 1= [place] 81-100 Sweatin= Chills/Flushing Restless Observation: 0= Sits Still Pupil Size: 0= Normal to Room Light Bone or Joint Aches: 1= Mild Discomfort Runny Nose/ Eye Tearin= Nasal Congestion GI Upset > 30mins: 1= Stomach Cramp Tremor Observation of Outstretched Hands: 1= Tremor [place], Not Seen Yawning Observation: 1= 1-2x During Session Anxiety or Irritability: 2=Irritable/Anxious Goose Flesh Skin: 0=Smooth Skin COWS Score: 9 BHS Progress Note (SOAP) Subjective: doing well with methadone detox regimen less body aches sleep better at night Objective: 10/24/18 14:48 Vital Signs Temperature 97.0 F L 10/24/18 13:07 Pulse Rate 68 10/24/18 13:07 Respiratory Rate 18 10/24/18 13:07 Blood Pressure 138/83 10/24/18 13:07 O2 Sat by Pulse Oximetry (%) Laboratory Last Values WBC 8.5 K/mm3 (4.0-10.0) 10/22/18 10:10 RBC 4.27 M/mm3 (4.00-5.60) 10/22/18 10:10 Hgb 13.2 GM/dL (11.7-16.9) 10/22/18 10:10 Hct 40.1 % (35.4-49) 10/22/18 10:10 MCV 93.9 fl (80-96) 10/22/18 10:10 MCH 30.9 pg (25.7-33.7) 10/22/18 10:10 MCHC 32.9 g/dl (32.0-35.9) 10/22/18 10:10 RDW 13.7 % (11.9-15.9) 10/22/18 10:10 Plt Count 286 K/MM3 (134-434) D 10/22/18 10:10 MPV 8.9 fl (7.5-11.1) 10/22/18 10:10 Sodium 139 mmol/L (136-145) 10/22/18 10:10 Potassium 4.0 mmol/L (3.5-5.1) 10/22/18 10:10 Chloride 103 mmol/L (98-107) 10/22/18 10:10 Carbon Dioxide 27 mmol/L (21-32) 10/22/18 10:10 Anion Gap 9 MMOL/L (8-16) 10/22/18 10:10 BUN 14.8 mg/dL (7-18) 10/22/18 10:10 Creatinine 0.9 mg/dL (0.55-1.3) 10/22/18 10:10 Est GFR (CKD-EPI)AfAm 119.97 10/22/18 10:10 Est GFR (CKD-EPI)NonAf 103.51 10/22/18 10:10 Random Glucose 94 mg/dL (74-106) 10/22/18 10:10 Calcium 9.1 mg/dL (8.5-10.1) 10/22/18 10:10 Total Bilirubin 0.4 mg/dL (0.2-1) 10/22/18 10:10 AST 16 U/L (15-37) 10/22/18 10:10 ALT 25 U/L (13-61) 10/22/18 10:10 Alkaline Phosphatase 75 U/L (45-117) 10/22/18 10:10 Total Protein 7.1 g/dl (6.4-8.2) 10/22/18 10:10 Albumin 3.7 g/dl (3.4-5.0) 10/22/18 10:10 RPR Titer Nonreactive (NONREACTIVE) 10/22/18 10:10 lab noted Assessment: 10/24/18 14:48 opiate withdrawal sx Plan: continue methadone detox regimen
[2018-10-24] MEDS: hydrOXYzine PAMOATE 25 MG CAPSULE (FP) PO PRN ×2 (16:03→22:16)
[2018-10-24] MEDS: METHOCARBAMOL 500 MG TABLET PO PRN (22:14)
[2018-10-24] MEDS: THIAMINE HCL 100 MG TABLET (FP) PO SCH (22:14)
[2018-10-24] MEDS: MELATONIN 5 MG TABLETS PO PRN (22:14)
[2018-10-25] MEDS ORDERED: METHADONE HCL 5 MG TABLET (FOR DETOX USE ONLY) ONE (09:36)
[2018-10-25] MEDS ORDERED: METHADONE HCL 10 MG TABLET (FOR DETOX USE ONLY) ONE (09:36)
--- NOTE | 2018-10-25 09:45 | PN ---
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 Objective: 10/25/18 09:44 Vital Signs Temperature 97.7 F 10/25/18 09:19 Pulse Rate 75 10/25/18 09:19 Respiratory Rate 18 10/25/18 09:19 Blood Pressure 122/74 10/25/18 09:19 O2 Sat by Pulse Oximetry (%) Laboratory Last Values WBC 8.5 K/mm3 (4.0-10.0) 10/22/18 10:10 RBC 4.27 M/mm3 (4.00-5.60) 10/22/18 10:10 Hgb 13.2 GM/dL (11.7-16.9) 10/22/18 10:10 Hct 40.1 % (35.4-49) 10/22/18 10:10 MCV 93.9 fl (80-96) 10/22/18 10:10 MCH 30.9 pg (25.7-33.7) 10/22/18 10:10 MCHC 32.9 g/dl (32.0-35.9) 10/22/18 10:10 RDW 13.7 % (11.9-15.9) 10/22/18 10:10 Plt Count 286 K/MM3 (134-434) D 10/22/18 10:10 MPV 8.9 fl (7.5-11.1) 10/22/18 10:10 Sodium 139 mmol/L (136-145) 10/22/18 10:10 Potassium 4.0 mmol/L (3.5-5.1) 10/22/18 10:10 Chloride 103 mmol/L (98-107) 10/22/18 10:10 Carbon Dioxide 27 mmol/L (21-32) 10/22/18 10:10 Anion Gap 9 MMOL/L (8-16) 10/22/18 10:10 BUN 14.8 mg/dL (7-18) 10/22/18 10:10 Creatinine 0.9 mg/dL (0.55-1.3) 10/22/18 10:10 Est GFR (CKD-EPI)AfAm 119.97 10/22/18 10:10 Est GFR (CKD-EPI)NonAf 103.51 10/22/18 10:10 Random Glucose 94 mg/dL (74-106) 10/22/18 10:10 Calcium 9.1 mg/dL (8.5-10.1) 10/22/18 10:10 Total Bilirubin 0.4 mg/dL (0.2-1) 10/22/18 10:10 AST 16 U/L (15-37) 10/22/18 10:10 ALT 25 U/L (13-61) 10/22/18 10:10 Alkaline Phosphatase 75 U/L (45-117) 10/22/18 10:10 Total Protein 7.1 g/dl (6.4-8.2) 10/22/18 10:10 Albumin 3.7 g/dl (3.4-5.0) 10/22/18 10:10 RPR Titer Nonreactive (NONREACTIVE) 10/22/18 10:10 lab noted Assessment: 10/25/18 09:45 opiate withdrawal sx Plan: continue methadone detox regimen
[2018-10-25] MEDS ORDERED: METHADONE (DETOX) 10 MG, METHADONE (DETOX) 5 MG PO ONE (10:00)
[2018-10-25] MEDS: PRENATAL VITAMINS W/ FOLIC ACID TABLET (FP) PO SCH (10:18)
[2018-10-25] MEDS: NICOTINE 7 MG/24 HOURS TOPICAL PATCH TD SCH (10:18)
[2018-10-25 13:05] VITALS: BP 146/86; PULSE 71; TEMP 97.2
[2018-10-26] MEDS ORDERED: METHADONE HCL 10 MG TABLET (FOR DETOX USE ONLY) PO ONE (10:00)
[2018-10-27] MEDS ORDERED: METHADONE HCL 5 MG TABLET (FOR DETOX USE ONLY) PO ONE (06:00)
== END 2018-10-25 17:30 | disposition left against medical advice (07) | DRG 770 ==
LOC: YASAS 09:01 → Y3N 10:56
PROVIDERS: ADMIT Surgery; ATTEND Surgery
PROC: HZ2ZZZZ Detoxification Services for Substance Abuse Treatment (ICD-10-PCS; principal; 2018-10-22)
DX: F11.23 Opioid dependence with withdrawal (principal); F17.213 Nicotine dependence, cigarettes, with withdrawal; F32.9 Major depressive disorder, single episode, unspecified; J45.909 Unspecified asthma, uncomplicated
CPT/HCPCS: 36415; 80053; 85027; 86593; J0735

== ENCOUNTER 2018-12-17 17:16 | Inpatient (IN) | payer OTHER ==
[2018-12-17 18:02] VITALS: BMI 27.3
--- NOTE | 2018-12-17 18:13 | HP ---
COWS - Scale Resting Pulse: 1= [place] 81-100 Sweatin= Chills/Flushing Restless Observation: 1= Difficult to Sit Still Pupil Size: 1= Pupils >than Normal Bone or Joint Aches: 2= Severe Diffuse Aches Runny Nose/ Eye Tearin= Constantly Teary/Runny GI Upset > 30mins: 0= None Tremor Observation: 0= None Yawning Observation: 0= None Anxiety or Irritability: 1=Feels Anxious/Irritable Goose Flesh Skin: 0=Smooth Skin COWS Score: 11 CIWA Score - Admission Criteria OASAS Guidelines: Admission for Medically Managed Detox: Requires at least one of the followin. CIWA greater than 12 2. Seizures within the past 24 hours 3. Delirium tremens within the past 24 hours 4. Hallucinations within the past 24 hours 5. Acute intervention needed for co occurring medical disorder 6. Acute intervention needed for co occurring psychiatric disorder 7. Severe withdrawal that cannot be handled at a lower level of care (continued vomiting, continued diarrhea, abnormal vital signs) requiring intravenous medication and/or fluids 8. Admitting History and Physical - Admission Chief Complaint: Heroin withdrawal History of Present Illness: Pt is a 43 yo M with PMHx of asthma-1 month ago uses an inhaler, kidney stones - 2yrs ago, and HTN presenting for detox from heroin Recent detox from heroin with methadone in 10/25 Heroin: Takes 5 bags per day, used 3 bags today, used last 11 am today Sniffs, never injected Wants to detox and follow up with an outpt program Was clean from 10/25 until mother had a heart attack and 2 month ( cannot remember the date) Started heroin 38years of age because he was stressed out Pt overdosed accidentally in 2017. 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 Sisters- in [place] estranged Lives with one of the sisters History Source: Patient, Medical Record Limitations to Obtaining History: No Limitations - Past Medical History Pulmonary: Yes: Asthma - Smoking History Smoking history: Current every day smoker Have you smoked in the past 12 months: Yes Aproximately how many cigarettes per day: 10 - Alcohol/Substance Use Hx Alcohol Use: No History of Substance Use: reports: Heroin - Social History Usual Living Arrangement: Yes: Other (With sister) Do you think of yourself as: Straight/Heterosexual ADL: Independent History of Recent Travel: No Admission ROS BHS - HPI Allergies/Adverse Reactions: Allergies Allergy/AdvReac Type Severity Reaction Status Date / Time No Known Allergies Allergy Verified 12/17/18 17:53 - Ebola screening Have you traveled outside of the country in the last 21 days: No (N) Have you had contact with anyone from an Ebola affected area: No Do you have a fever: No - Review of Systems Constitutional: Changes in sleep EENT: reports: Throat Pain Respiratory: reports: Shortness of Breath Cardiac: reports: No Symptoms Reported GI: reports: No Symptoms Reported : reports: No Symptoms Reported Musculoskeletal: reports: Other (generalized body pain) Integumentary: reports: No Symptoms Reported Neuro: reports: No Symptoms reported Endocrine: reports: No Symptoms Reported Hematology: reports: No Symptoms Reported Psychiatric: reports: Depressed Patient History - Patient Medical History Hx Anemia: No Hx Asthma: Yes Hx Chronic Obstructive Pulmonary Disease (COPD): No Hx Cancer: No Hx Cardiac Disorders: No Hx Congestive Heart Failure: No Hx Hypertension: No Hx Hypercholesterolemia: No Hx Pacemaker: No HX Cerebrovascular Accident: No Hx Seizures: No Hx Dementia: No Hx Diabetes: No Hx Gastrointestinal Disorders: No Hx Liver Disease: No Hx Genitourinary Disorders: No Hx Sexually Transmitted Disorders: No Hx Renal Disease (ESRD): No Hx Thyroid Disease: No Hx Human Immunodeficiency Virus (HIV): No (Last Tested: 08/30/18 negative) Hx Hepatitis C: No (Last Tested: 04/2017: NEGATIVE.) Hx Depression: Yes Hx Suicide Attempt: Yes (pT STATES HE TRIED TO OVERDOSE 2017) Hx Bipolar Disorder: No Hx Schizophrenia: No - Patient Surgical History Past Surgical History: No Hx Neurologic Surgery: No Hx Cataract Extraction: No Hx Cardiac Surgery: No Hx Lung Surgery: No Hx Breast Surgery: No Hx Breast Biopsy: No Hx Abdominal Surgery: No Hx Appendectomy: No Hx Cholecystectomy: No Hx Genitourinary Surgery: No Hx Section: No Hx Orthopedic Surgery: No Other Surgical History: DENIES. Anesthesia Reaction: No - PPD History Previous Implant?: Yes Documented Results: Negative w/proof Implanted On Prior [facility] Admission?: Yes Date: 07/21/18 Results: 0 mm - Reproductive History Patient is a Female of Child Bearing Age (11 -55 yrs old): No - Smoking Cessation Smoking history: Current every day smoker Have you smoked in the past 12 months: Yes Aproximately how many cigarettes per day: 10 Cigars Per Day: 0 Hx Chewing Tobacco Use: No Initiated information on smoking cessation: Yes 'Breaking Loose' booklet given: 12/17/18 - Substance & Tx. History Hx Alcohol Use: No Hx Substance Use: Yes Substance Use Type: Heroin Hx Substance Use Treatment: Yes - Substances abused Heroin Other (specify): detox, Substance route: Inhalation Frequency: Daily Amount used: 5 bags Age of first use: 38 Date of last use: 12/17/18 Marijuana/Hashish Substance route: Smoking Frequency: 1-3 times last 30 days Amount used: 1 joint Age of first use: 16 Date of last use: 09/11/18 Alcohol Substance route: Oral Frequency: No use in 30 days Amount used: 3/6 packs beer. Age of first use: 38 Date of last use: 08/26/18 Admission Physical Exam [facility] - Vital Signs Vital Signs: Vital Signs - 24 hr 12/17/18 17:53 Temperature 97.3 F L Pulse Rate 89 Respiratory 16 Rate Blood Pressure 132/83 - Physical General Appearance: Yes: No Apparent Distress HEENTM: Yes: Within Normal Limits Respiratory: Yes: Chest Non-Tender, Lungs Clear, Normal Breath Sounds Neck: Yes: Within Normal Limits Breast: Yes: Breast Exam Deferred Cardiology: Yes: Regular Rhythm, Regular Rate, S1, S2 Abdominal: Yes: Within Normal Limits, Soft Genitourinary: Yes: Within Normal Limits Back: Yes: Within Normal Limits Musculoskeletal: Yes: Within Normal Limits Extremities: Yes: Within Normal Limits Neurological: Yes: Motor Strength 5/5 Integumentary: Yes: Within Normal Limits - Diagnostic (1) Heroin withdrawal Current Visit: Yes Status: Acute Cleared for Admission [facility] - Detox or Rehab [facility] Level of Care: Medically Managed Detox Regimen/Protocol: Methadone Claeared for Rehab Admission: No Breathalyzer - Breathalyzer Breathalyzer: 0 Urine Drug Screen - Test Device Lot number: [id number] Expiration date: 07/06/20 - Control Is test valid?: Yes - Results Drug screen NEGATIVE: No Urine drug screen results: FEN-Fentanyl, MOP-Opiates Inpatient Rehab Admission - Rehab Decision to Admit Inpatient rehab admission?: No
[2018-12-17] MEDS ORDERED: MAG HYDROX/AL HYDROX/SIMETH 30 ML UNIT-DOSE CUP PO PRN (18:57)
[2018-12-17] MEDS ORDERED: ACETAMINOPHEN 325 MG TABLET (FP) PO PRN ×2 (18:57)
[2018-12-17] MEDS ORDERED: MAGNESIUM CITRATE 300 ML BOTTLE PO PRN (18:57)
[2018-12-17] MEDS ORDERED: cloNIDine HCL 0.1 MG TABLET PO PRN (18:57)
[2018-12-17] MEDS ORDERED: IBUPROFEN 400 MG TABLET (FP) PO PRN (18:57)
[2018-12-17] MEDS ORDERED: MAGNESIUM HYDROX 2400MG/30ML ORAL SUSPENSION 30 ML CUP PO PRN (18:57)
[2018-12-17] MEDS ORDERED: NICOTINE POLACRILEX 2 MG GUM BUC PRN (18:57)
[2018-12-17] MEDS ORDERED: MENTHOL/PHENOL 1 EACH UD MM PRN (18:57)
[2018-12-17] MEDS ORDERED: BISMUTH SUBSALICYLATE 524 MG/30 ML UD PO PRN (18:57)
[2018-12-17] MEDS ORDERED: METHADONE HCL 10 MG TABLET (FOR DETOX USE ONLY) PO ONE (20:00)
[2018-12-17] MEDS: THIAMINE HCL 100 MG TABLET (FP) PO SCH (22:05)
[2018-12-17] MEDS: MELATONIN 5 MG TABLETS PO PRN (22:08)
[2018-12-17] MEDS: METHOCARBAMOL 500 MG TABLET PO PRN (22:08)
[2018-12-18 09:32] LABS: HEMATOCRIT 40.3 % (35.4-49); HEMOGLOBIN 13.2 GM/dL (11.7-16.9); MCH 30.8 pg (25.7-33.7); MCHC 32.7 g/dl (32.0-35.9); MEAN PLT VOLUME 9.6 fl (7.5-11.1); PLATELET COUNT 204 K/MM3 (134-434); RBC 4.29 M/mm3 (4.00-5.60); RDW 12.6 % (11.9-15.9); WHITE BLOOD COUNT 6.5 K/mm3 (4.0-10.0)
[2018-12-18] MEDS ORDERED: METHADONE HCL 5 MG TABLET (FOR DETOX USE ONLY) PO ONE (10:00)
[2018-12-18 10:23] LABS: ALBUMIN 3.3 g/dl (3.4-5.0); BILIRUBIN,TOTAL 0.3 mg/dL (0.2-1); BLOOD UREA NITROGEN 23.7 mg/dL (7-18); CALCIUM 8.8 mg/dL (8.5-10.1); POTASSIUM 4.1 mmol/L (3.5-5.1); TOT PROT 6.1 g/dl (6.4-8.2)
[2018-12-18] MEDS: PRENATAL VITAMINS W/ FOLIC ACID TABLET (FP) PO SCH (10:34)
[2018-12-18] MEDS: METHOCARBAMOL 500 MG TABLET PO PRN ×2 (10:35→21:36)
[2018-12-18] MEDS: NICOTINE 7 MG/24 HOURS TOPICAL PATCH TD SCH (10:35)
--- NOTE | 2018-12-18 11:26 | PN ---
BHS COWS - Scale Resting Pulse: 0= [place] 80 or Below Sweatin= Chills/Flushing Restless Observation: 0= Sits Still Pupil Size: 1= Pupils >than Normal Bone or Joint Aches: 1= Mild Discomfort Runny Nose/ Eye Tearin= None GI Upset > 30mins: 1= Stomach Cramp Tremor Observation of Outstretched Hands: 2= Slight Tremor Visible Yawning Observation: 0= None Anxiety or Irritability: 1=Feels Anxious/Irritable Goose Flesh Skin: 3=Piloerection COWS Score: 10 BHS Progress Note (SOAP) Subjective: 43 years old male admitted on 12/17/18 for opiate withdrawal sx management treated with methadone detox regimen resting on bed feeling tired "waiting for methadone" Objective: 12/18/18 11:26 Vital Signs Temperature 98.3 F 12/18/18 09:49 Pulse Rate 72 12/18/18 09:49 Respiratory Rate 18 12/18/18 09:49 Blood Pressure 120/73 12/18/18 09:49 O2 Sat by Pulse Oximetry (%) Laboratory Last Values WBC 6.5 K/mm3 (4.0-10.0) 12/18/18 07:20 RBC 4.29 M/mm3 (4.00-5.60) 12/18/18 07:20 Hgb 13.2 GM/dL (11.7-16.9) 12/18/18 07:20 Hct 40.3 % (35.4-49) 12/18/18 07:20 MCV 94.0 fl (80-96) 12/18/18 07:20 MCH 30.8 pg (25.7-33.7) 12/18/18 07:20 MCHC 32.7 g/dl (32.0-35.9) 12/18/18 07:20 RDW 12.6 % (11.9-15.9) 12/18/18 07:20 Plt Count 204 K/MM3 (134-434) D 12/18/18 07:20 MPV 9.6 fl (7.5-11.1) 12/18/18 07:20 Sodium 139 mmol/L (136-145) 12/18/18 07:20 Potassium 4.1 mmol/L (3.5-5.1) 12/18/18 07:20 Chloride 106 mmol/L (98-107) 12/18/18 07:20 Carbon Dioxide 28 mmol/L (21-32) 12/18/18 07:20 Anion Gap 5 MMOL/L (8-16) L 12/18/18 07:20 BUN 23.7 mg/dL (7-18) H 12/18/18 07:20 Creatinine 1.0 mg/dL (0.55-1.3) 12/18/18 07:20 Est GFR (CKD-EPI)AfAm 104.88 12/18/18 07:20 Est GFR (CKD-EPI)NonAf 90.49 12/18/18 07:20 Random Glucose 90 mg/dL (74-106) 12/18/18 07:20 Calcium 8.8 mg/dL (8.5-10.1) 12/18/18 07:20 Total Bilirubin 0.3 mg/dL (0.2-1) 12/18/18 07:20 AST 13 U/L (15-37) L 12/18/18 07:20 ALT 18 U/L (13-61) 12/18/18 07:20 Alkaline Phosphatase 66 U/L (45-117) 12/18/18 07:20 Total Protein 6.1 g/dl (6.4-8.2) L 12/18/18 07:20 Albumin 3.3 g/dl (3.4-5.0) L 12/18/18 07:20 lab noted Assessment: 12/18/18 11:26 opiate withdrawal sx Plan: continue methadone detox regimen
[2018-12-18 11:51] LABS: RPR NONREACTIVE (NONREACTIVE)
--- NOTE | 2018-12-18 13:45 | CONSULT ---
[facility] Psychiatric Consult - Data Date of interview: 12/18/18 Admission source: [facility] Identifying data: This is one of multiple admissions to [facility] for this 43 y/ o male self-referred for detoxification (SHANNON issues : heroin, nicotine , marihuana). Interviewed at [address] [place] [address]. Patient is , a father of two, homeless, unemployed and deprived of financial support. Substance Abuse History: Discussed with the patient. Details in current [facility] report as follows : Smoking history: Current every day smoker. Have you smoked in the past 12 months: Yes. Aproximately how many cigarettes per day: 10. Cigars Per Day: 0. Hx Chewing Tobacco Use: No. Initiated information on smoking cessation: Yes. 'Breaking Loose' booklet given: 12/17/18. - Substance & Tx. History. Hx Alcohol Use: No. Hx Substance Use: Yes. Substance Use Type : Heroin. Hx Substance Use Treatment: Yes. - Substances abused. Heroin. Other (specify): detox,. Substance route: Inhalation. Frequency: Daily. Amount used: 5 bags. Age of first use: 38. Date of last use: 12/17/18. Marijuana/Hashish. Substance route: Smoking. Frequency: 1-3 times last 30 days. Amount used: 1 joint. Age of first use: 16. Date of last use: . Alcohol. Substance route: Oral. Frequency: No use in 30 days. Amount used: 3/6 packs beer. Age of first use: 38. Date of last use: 08/26/18 Medical History: Medical profile is remarkable for hypertension,bronchial asthma and a history of nephrolithiasis (lithotripsy in 2017). Psychiatric History: Patient denies history of psychiatric hospitalizations. Not on psychotropic medications. Mr Beard has no antecedent of psychiatric OPD care. He admits to a distant history of one suicide attempt (overdose with heroin). Physical/Sexual Abuse/Trauma History: Stressors : homelessness, separation from , chronic unemployment, financial constraints, inability to read + write, lack of vocational skills and absence of a support network. Additional Comment: Urine drug screen results: FEN-Fentanyl, MOP-Opiates. Noted. Mental Status Exam - Mental Status Exam Alert and Oriented to: Time, Place, Person Cognitive Function: Good Patient Appearance: Unkempt, Disheveled Mood: Sad, Withdrawn, Anxious Affect: Mood Congruent, Constricted Patient Behavior: Fatigued, Appropriate, Cooperative Speech Pattern: Clear Voice Loudness: Normal Thought Process: Intact, Goal Oriented Thought Disorder: Not Present Hallucinations: Denies Suicidal Ideation: Denies Homicidal Ideation: Denies Insight/Judgement: Poor Appetite: Fair Muscle strength/Tone: Normal Gait/Station: Normal Psychiatric Findings - Problem List (Charlo 1, 2,3) (1) Opioid dependence with withdrawal Current Visit: Yes Status: Acute (2) Cannabis dependence Current Visit: Yes Status: Chronic (3) Nicotine dependence Current Visit: Yes Status: Chronic Qualifiers: Nicotine product type: cigarettes Substance use status: in withdrawal Qualified Code(s): F17.213 - Nicotine dependence, cigarettes, with withdrawal Comment: counseled cessation - interested in gum - same Rx (4) Drug-induced mood disorder Current Visit: Yes Status: Chronic - Initial Treatment Plan Initial Treatment Plan: Psychoeducation. Sleep hygiene. Detoxification. NA meetings. MAT services discussed in this session. Rehabilitation recommended. Support given. Observation.
[2018-12-18] MEDS ORDERED: ALBUTEROL SO4 8 GM HFA INHALER IH PRN (17:11)
[2018-12-18] MEDS: THIAMINE HCL 100 MG TABLET (FP) PO SCH (21:35)
[2018-12-18] MEDS: hydrOXYzine PAMOATE 25 MG CAPSULE (FP) PO PRN (21:36)
[2018-12-18] MEDS: MELATONIN 5 MG TABLETS PO PRN (21:36)
[2018-12-19] MEDS ORDERED: METHADONE HCL 10 MG TABLET (FOR DETOX USE ONLY) PO ONE (10:00)
[2018-12-19] MEDS: METHOCARBAMOL 500 MG TABLET PO PRN (10:30)
[2018-12-19] MEDS: NICOTINE 7 MG/24 HOURS TOPICAL PATCH TD SCH (10:30)
[2018-12-19] MEDS: PRENATAL VITAMINS W/ FOLIC ACID TABLET (FP) PO SCH (10:30)
--- NOTE | 2018-12-19 12:00 | PN ---
BHS COWS - Scale Resting Pulse: 0= [place] 80 or Below Sweatin= Chills/Flushing Restless Observation: 0= Sits Still Pupil Size: 0= Normal to Room Light Bone or Joint Aches: 1= Mild Discomfort Runny Nose/ Eye Tearin= Nasal Congestion GI Upset > 30mins: 1= Stomach Cramp Tremor Observation of Outstretched Hands: 1= Tremor [place], Not Seen Yawning Observation: 1= 1-2x During Session Anxiety or Irritability: 1=Feels Anxious/Irritable Goose Flesh Skin: 0=Smooth Skin COWS Score: 7 BHS Progress Note (SOAP) Subjective: 43 years old male admitted on 12/17/18 for opiate withdrawal sx management treated with methadone detox regimen feeling better slept through the night less irritable mild body ache Objective: 12/19/18 12:09 Vital Signs Temperature 98.9 F 12/19/18 09:25 Pulse Rate 77 12/19/18 09:25 Respiratory Rate 18 12/19/18 09:25 Blood Pressure 124/86 12/19/18 09:25 O2 Sat by Pulse Oximetry (%) Laboratory Last Values WBC 6.5 K/mm3 (4.0-10.0) 12/18/18 07:20 RBC 4.29 M/mm3 (4.00-5.60) 12/18/18 07:20 Hgb 13.2 GM/dL (11.7-16.9) 12/18/18 07:20 Hct 40.3 % (35.4-49) 12/18/18 07:20 MCV 94.0 fl (80-96) 12/18/18 07:20 MCH 30.8 pg (25.7-33.7) 12/18/18 07:20 MCHC 32.7 g/dl (32.0-35.9) 12/18/18 07:20 RDW 12.6 % (11.9-15.9) 12/18/18 07:20 Plt Count 204 K/MM3 (134-434) D 12/18/18 07:20 MPV 9.6 fl (7.5-11.1) 12/18/18 07:20 Sodium 139 mmol/L (136-145) 12/18/18 07:20 Potassium 4.1 mmol/L (3.5-5.1) 12/18/18 07:20 Chloride 106 mmol/L (98-107) 12/18/18 07:20 Carbon Dioxide 28 mmol/L (21-32) 12/18/18 07:20 Anion Gap 5 MMOL/L (8-16) L 12/18/18 07:20 BUN 23.7 mg/dL (7-18) H 12/18/18 07:20 Creatinine 1.0 mg/dL (0.55-1.3) 12/18/18 07:20 Est GFR (CKD-EPI)AfAm 104.88 12/18/18 07:20 Est GFR (CKD-EPI)NonAf 90.49 12/18/18 07:20 Random Glucose 90 mg/dL (74-106) 12/18/18 07:20 Calcium 8.8 mg/dL (8.5-10.1) 12/18/18 07:20 Total Bilirubin 0.3 mg/dL (0.2-1) 12/18/18 07:20 AST 13 U/L (15-37) L 12/18/18 07:20 ALT 18 U/L (13-61) 12/18/18 07:20 Alkaline Phosphatase 66 U/L (45-117) 12/18/18 07:20 Total Protein 6.1 g/dl (6.4-8.2) L 12/18/18 07:20 Albumin 3.3 g/dl (3.4-5.0) L 12/18/18 07:20 RPR Titer Nonreactive (NONREACTIVE) 12/18/18 07:20 HIV 1&2 Antibody Screen Negative 12/18/18 07:20 HIV P24 Antigen Negative 12/18/18 07:20 lab noted Assessment: 12/19/18 12:10 opiate withdrawal sx Plan: continue methadone detox regimen
[2018-12-19] MEDS: THIAMINE HCL 100 MG TABLET (FP) PO SCH (22:20)
[2018-12-19] MEDS: MELATONIN 5 MG TABLETS PO PRN (22:20)
[2018-12-19] MEDS: hydrOXYzine PAMOATE 25 MG CAPSULE (FP) PO PRN (22:21)
[2018-12-20] MEDS ORDERED: METHADONE HCL 5 MG TABLET (FOR DETOX USE ONLY) PO ONE (06:00)
[2018-12-20 06:12] VITALS: BP 133/79; PULSE 64; TEMP 97.5
--- NOTE | 2018-12-20 09:12 | DS ---
[facility] Detox Discharge Summary Admission Date: 12/17/18 Discharge Date: 12/20/18 - History Present History: Opioid Dependence Additional Comments: 43 years old male admitted on 12/17/18 for opiate withdrawal sx management treated with methadone detox regimen patient is alert oriented x 3 cardiac S1S2 regular rate rhythm respiratory clear lung bilaterally on auscultation abdomen soft no rebound tenderness - Physical Exam Results Vital Signs: Vital Signs Temperature 97.5 F L 12/20/18 06:11 Pulse Rate 64 12/20/18 06:11 Respiratory Rate 20 12/20/18 06:11 Blood Pressure 133/79 12/20/18 06:11 O2 Sat by Pulse Oximetry (%) Pertinent Admission Physical Exam Findings: opiate withdrawal sx Laboratory Last Values WBC 6.5 K/mm3 (4.0-10.0) 12/18/18 07:20 RBC 4.29 M/mm3 (4.00-5.60) 12/18/18 07:20 Hgb 13.2 GM/dL (11.7-16.9) 12/18/18 07:20 Hct 40.3 % (35.4-49) 12/18/18 07:20 MCV 94.0 fl (80-96) 12/18/18 07:20 MCH 30.8 pg (25.7-33.7) 12/18/18 07:20 MCHC 32.7 g/dl (32.0-35.9) 12/18/18 07:20 RDW 12.6 % (11.9-15.9) 12/18/18 07:20 Plt Count 204 K/MM3 (134-434) D 12/18/18 07:20 MPV 9.6 fl (7.5-11.1) 12/18/18 07:20 Sodium 139 mmol/L (136-145) 12/18/18 07:20 Potassium 4.1 mmol/L (3.5-5.1) 12/18/18 07:20 Chloride 106 mmol/L (98-107) 12/18/18 07:20 Carbon Dioxide 28 mmol/L (21-32) 12/18/18 07:20 Anion Gap 5 MMOL/L (8-16) L 12/18/18 07:20 BUN 23.7 mg/dL (7-18) H 12/18/18 07:20 Creatinine 1.0 mg/dL (0.55-1.3) 12/18/18 07:20 Est GFR (CKD-EPI)AfAm 104.88 12/18/18 07:20 Est GFR (CKD-EPI)NonAf 90.49 12/18/18 07:20 Random Glucose 90 mg/dL (74-106) 12/18/18 07:20 Calcium 8.8 mg/dL (8.5-10.1) 12/18/18 07:20 Total Bilirubin 0.3 mg/dL (0.2-1) 12/18/18 07:20 AST 13 U/L (15-37) L 12/18/18 07:20 ALT 18 U/L (13-61) 12/18/18 07:20 Alkaline Phosphatase 66 U/L (45-117) 12/18/18 07:20 Total Protein 6.1 g/dl (6.4-8.2) L 12/18/18 07:20 Albumin 3.3 g/dl (3.4-5.0) L 12/18/18 07:20 RPR Titer Nonreactive (NONREACTIVE) 12/18/18 07:20 HIV 1&2 Antibody Screen Negative 12/18/18 07:20 HIV P24 Antigen Negative 12/18/18 07:20 lab noted - Treatment Hospital Course: Detox Protocol Followed, Detoxed Safely, Responded well, Discharged Condition Good, Rehab Referral Accepted Patient has Accepted a Rehab Referral to: new focus - Medication Discharge Medications: Ambulatory Orders Naloxone HCl [Narcan] 4 mg NS ASDIR PRN #1 spray 10/25/18 - Diagnosis (1) Opioid dependence with withdrawal Status: Acute (2) Asthma Status: Chronic Qualifiers: Asthma severity: mild Asthma persistence: intermittent Asthma complication type: uncomplicated Qualified Code(s): J45.20 - Mild intermittent asthma, uncomplicated (3) Nicotine dependence Status: Acute Qualifiers: Nicotine product type: cigarettes Substance use status: in withdrawal Qualified Code(s): F17.213 - Nicotine dependence, cigarettes, with withdrawal (4) HTN (hypertension) Status: Chronic Qualifiers: Hypertension type: essential hypertension Qualified Code(s): I10 - Essential (primary) hypertension - AMA Did Patient Leave Against Medical Advice: No COWS (PN) - Opiate Withdrawal Resting Pulse: 0= [place] 80 or Below Sweatin= Chills/Flushing Restless Observation: 0= Sits Still Pupil Size: 0= Normal to Room Light Bone or Joint Aches: 0= None Runny Nose/ Eye Tearin= None GI Upset > 30mins: 1= Stomach Cramp Tremor Observation of Outstretched Hands: 1= Tremor [place], Not Seen Yawning Observation: 0= None Anxiety or Irritability: 1=Feels Anxious/Irritable Goose Flesh Skin: 0=Smooth Skin COWS Score: 4
== END 2018-12-20 08:41 | disposition home or self-care (01) | DRG 773 ==
LOC: YASAS 17:16 → Y3N 19:47
PROVIDERS: ADMIT Allergy & Immunology; ATTEND Allergy & Immunology
PROC: HZ2ZZZZ Detoxification Services for Substance Abuse Treatment (ICD-10-PCS; principal; 2018-12-17)
DX: F11.23 Opioid dependence with withdrawal (principal); F12.20 Cannabis dependence, uncomplicated; F17.213 Nicotine dependence, cigarettes, with withdrawal; F19.24 Other psychoactive substance dependence with psychoactive substance-induced mood disorder; I10 Essential (primary) hypertension; J45.20 Mild intermittent asthma, uncomplicated; Z87.442 Personal history of urinary calculi; Z91.5 Personal history of self-harm
CPT/HCPCS: 36415; 80053; 85027; 86593; 87389

== ENCOUNTER 2019-02-15 09:54 | Inpatient (IN) | payer OTHER ==
[2019-02-15 10:16] VITALS: BMI 27.1
--- NOTE | 2019-02-15 11:13 | HP ---
COWS - Scale Resting Pulse: 1= [place] 81-100 Sweatin= Chills/Flushing Restless Observation: 1= Difficult to Sit Still Pupil Size: 1= Pupils >than Normal Bone or Joint Aches: 2= Severe Diffuse Aches Runny Nose/ Eye Tearin= Runny Nose/Eyes GI Upset > 30mins: 2= Nausea/Diarrhea Tremor Observation: 2= Slight Tremor Visible Yawning Observation: 1= 1-2x During Session Anxiety or Irritability: 2=Irritable/Anxious Goose Flesh Skin: 0=Smooth Skin COWS Score: 15 CIWA Score Nausea/Vomitin Muscle Tremors: 3 Anxiety: 3 Agitation: 3 Paroxysmal Sweats: 1-Minimal Palms Moist Orientation: 0-Oriented Tacttile Disturbances: 1-Very Mild Itch/Numbness Auditory Disturbances: 0-None Visual Disturbances: 0-None Headache: 2-Mild CIWA-Ar Total Score: 15 - Admission Criteria OASAS Guidelines: Admission for Medically Managed Detox: Requires at least one of the followin. CIWA greater than 12 2. Seizures within the past 24 hours 3. Delirium tremens within the past 24 hours 4. Hallucinations within the past 24 hours 5. Acute intervention needed for co occurring medical disorder 6. Acute intervention needed for co occurring psychiatric disorder 7. Severe withdrawal that cannot be handled at a lower level of care (continued vomiting, continued diarrhea, abnormal vital signs) requiring intravenous medication and/or fluids 8. Admitting History and Physical - Admission Chief Complaint: i clare help to stop using heroin,alcohol and marijuana History of Present Illness: this 43 years old male with heroin,alcohol,marijuana dependence seeking detox History Source: Patient Limitations to Obtaining History: No Limitations - Past Medical History Pulmonary: Yes: Asthma - Smoking History Smoking history: Current every day smoker Have you smoked in the past 12 months: Yes Aproximately how many cigarettes per day: 5 - Alcohol/Substance Use Hx Alcohol Use: No History of Substance Use: reports: Heroin - Social History Usual Living Arrangement: Yes: Other (live with sister) ADL: Independent History of Recent Travel: No Admission ROS S - HPI Chief Complaint: i need help to stop using heroin,alcohol and marijuana Allergies/Adverse Reactions: Allergies Allergy/AdvReac Type Severity Reaction Status Date / Time No Known Allergies Allergy Verified 02/15/19 10:09 History of Present Illness: this 43 years old male with heroin,alcohol,marijuana dependence,seeking detox, withdrawal symptom, multiple admissions in detox but keep relapsing last detox [facility]102/16/18 to 12/20/18 keep relapsing denied seizure denied syncope nicotine dependence 5 cigarette longest sobriety 5 years would go to rehab after detox - Ebola screening Have you traveled outside of the country in the last 21 days: No Have you had contact with anyone from an Ebola affected area: No Do you have a fever: No - Review of Systems Constitutional: Chills, Loss of Appetite, Malaise, Night Sweats, Changes in sleep, Unintentional Wgt. Loss EENT: reports: Tearing, Nose Congestion Respiratory: reports: Wheezing Cardiac: reports: No Symptoms Reported GI: reports: Diarrhea, Nausea, Poor Appetite : reports: No Symptoms Reported Musculoskeletal: reports: Back Pain, Joint Pain, Muscle Pain Integumentary: reports: Dryness Neuro: reports: Headache, Tremors Endocrine: reports: No Symptoms Reported Hematology: reports: No Symptoms Reported Psychiatric: reports: No Sypmtoms Reported, Judgement Intact, Mood/Affect Appropiate, Orientated x3 Other Systems: Reviewed and Negative Patient History - Patient Medical History Hx Anemia: No Hx Asthma: Yes (on albuterol inhaler) Hx Chronic Obstructive Pulmonary Disease (COPD): No Hx Cancer: No Hx Cardiac Disorders: No Hx Congestive Heart Failure: No Hx Hypertension: No Hx Hypercholesterolemia: No Hx Pacemaker: No HX Cerebrovascular Accident: No Hx Seizures: No Hx Dementia: No Hx Diabetes: No Hx Gastrointestinal Disorders: No Hx Liver Disease: No Hx Genitourinary Disorders: Yes (kidney stones) Hx Sexually Transmitted Disorders: No Hx Renal Disease (ESRD): No Hx Thyroid Disease: No Hx Human Immunodeficiency Virus (HIV): No (Last Tested: 08/30/18 negative) Hx Hepatitis C: No (Last Tested: 04/2017: NEGATIVE.) Hx Depression: No Hx Suicide Attempt: No Hx Bipolar Disorder: No Hx Schizophrenia: No Other Medical History: no suicidal,no homidical - Patient Surgical History Past Surgical History: No Hx Neurologic Surgery: No Hx Cataract Extraction: No Hx Cardiac Surgery: No Hx Lung Surgery: No Hx Breast Surgery: No Hx Breast Biopsy: No Hx Abdominal Surgery: No Hx Appendectomy: No Hx Cholecystectomy: No Hx Genitourinary Surgery: No Hx Section: No Hx Orthopedic Surgery: No Other Surgical History: DENIES. Anesthesia Reaction: No - PPD History Previous Implant?: Yes Documented Results: Negative w/proof Date: 07/21/18 Results: 0 mm PPD to be Administered?: No - Smoking Cessation Smoking history: Current every day smoker Have you smoked in the past 12 months: Yes Aproximately how many cigarettes per day: 5 Cigars Per Day: 0 Hx Chewing Tobacco Use: No Initiated information on smoking cessation: Yes 'Breaking Loose' booklet given: 02/15/19 - Substance & Tx. History Hx Alcohol Use: Yes Hx Substance Use: Yes Substance Use Type: Alcohol, Heroin, Marijuana Hx Substance Use Treatment: Yes (pWC102/16/18 to 12/20/18) - Substances abused Heroin Other (specify): detox, Substance route: Inhalation Frequency: Daily Amount used: 6 bags Age of first use: 38 Date of last use: 02/15/19 Marijuana/Hashish Substance route: Smoking Frequency: 1-3 times last 30 days Amount used: 1 blunt Age of first use: 16 Date of last use: 02/14/19 Alcohol Substance route: Oral Frequency: Daily Amount used: 2 - 3 beers of 12 ozs/1/2 pint of carlos Age of first use: 19 Date of last use: 02/01/19 Other Other (specify): Marijuana Substance route: Smoking Frequency: 3-6 times per week Amount used: 1 blunt Age of first use: 16 Date of last use: 01/06/19 Admission Physical Exam BHS - Vital Signs Vital Signs: Vital Signs - 24 hr 02/15/19 10:10 Temperature 97.3 F L Pulse Rate 81 Respiratory 20 Rate Blood Pressure 118/76 - Physical General Appearance: Yes: Moderate Distress, Irritable, Sweating, Anxious HEENTM: Yes: Normal ENT Inspection, Normocephalic, LIDIA, Pharynx Normal Respiratory: Yes: Within Normal Limits, Lungs Clear, Normal Breath Sounds Neck: Yes: Within Normal Limits, Supple, Trachea in good position Breast: Yes: Within Normal Limits Cardiology: Yes: Within Normal Limits, Regular Rhythm, Regular Rate, S1, S2 Abdominal: Yes: Within Normal Limits, Normal Bowel Sounds, Non Tender, Flat Genitourinary: Yes: Within Normal Limits Back: Yes: Muscle Spasm Extremities: Yes: Tremors Neurological: Yes: compensation associate II-XII NML intact, Fully Oriented, Alert, Motor Strength 5/5 Integumentary: Yes: Dry Lymphatic: Yes: Within Normal Limits - Diagnostic (1) Opioid dependence with withdrawal Current Visit: No Status: Acute (2) Nicotine dependence Current Visit: No Status: Acute Qualifiers: Nicotine product type: cigarettes Substance use status: in withdrawal Qualified Code(s): F17.213 - Nicotine dependence, cigarettes, with withdrawal Comment: counseled cessation - interested in gum - same Rx (3) Alcohol dependence Current Visit: No Status: Chronic Qualifiers: Substance use status: uncomplicated Qualified Code(s): F10.20 - Alcohol dependence, uncomplicated (4) Asthma Current Visit: No Status: Chronic Qualifiers: Asthma severity: mild Asthma persistence: intermittent Asthma complication type: uncomplicated Qualified Code(s): J45.20 - Mild intermittent asthma, uncomplicated Comment: has inhaler (5) Kidney stones Current Visit: No Status: Chronic (6) Dehydration Current Visit: Yes Status: Acute Cleared for Admission BHS - Detox or Rehab S Level of Care: Medically Managed Detox Regimen/Protocol: Methadone/Librium Breathalyzer - Breathalyzer Breathalyzer: 0 Urine Drug Screen - Test Device Lot number: [id number] Expiration date: 09/05/20 - Control Is test valid?: No - Results Drug screen NEGATIVE: No Urine drug screen results: THC-Marijuana, FEN-Fentanyl, MOP-Opiates Inpatient Rehab Admission - Rehab Decision to Admit Inpatient rehab admission?: No
[2019-02-15] MEDS ORDERED: MAGNESIUM HYDROX 2400MG/30ML ORAL SUSPENSION 30 ML CUP PO PRN (11:22)
[2019-02-15] MEDS ORDERED: NICOTINE POLACRILEX 2 MG GUM BUC PRN (11:22)
[2019-02-15] MEDS ORDERED: MENTHOL/PHENOL 1 EACH UD MM PRN (11:22)
[2019-02-15] MEDS ORDERED: ACETAMINOPHEN 325 MG TABLET (FP) PO PRN ×2 (11:22)
[2019-02-15] MEDS ORDERED: BISMUTH SUBSALICYLATE 262 MG/15 ML BTL PO PRN (11:22)
[2019-02-15] MEDS ORDERED: IBUPROFEN 400 MG TABLET (FP) PO PRN (11:22)
[2019-02-15] MEDS ORDERED: chlordiazePOXIDE HCL 10 MG CAPSULE PO PRN (11:22)
[2019-02-15] MEDS ORDERED: hydrOXYzine PAMOATE 25 MG CAPSULE (FP) PO PRN (11:22)
[2019-02-15] MEDS ORDERED: MAG HYDROX/AL HYDROX/SIMETH 30 ML UNIT-DOSE CUP PO PRN (11:22)
[2019-02-15] MEDS ORDERED: cloNIDine HCL 0.1 MG TABLET PO PRN (11:22)
[2019-02-15] MEDS ORDERED: MAGNESIUM CITRATE 300 ML BOTTLE PO PRN (11:22)
[2019-02-15] MEDS ORDERED: ALBUTEROL SO4 8 GM HFA INHALER IH PRN ×2 (11:25→12:33)
[2019-02-15] MEDS ORDERED: METHADONE HCL 10 MG TABLET (FOR DETOX USE ONLY) PO ONE (11:45)
[2019-02-15] MEDS: METHOCARBAMOL 500 MG TABLET PO PRN (12:03)
[2019-02-15 15:49] LABS: HEMATOCRIT 45.6 % (35.4-49); HEMOGLOBIN 14.8 GM/dL (11.7-16.9); MCH 30.6 pg (25.7-33.7); MCHC 32.5 g/dl (32.0-35.9); MEAN CELL VOLUME 94.3 fl (80-96); MEAN PLT VOLUME 9.5 fl (7.5-11.1); PLATELET COUNT 266 K/MM3 (134-434); RBC 4.84 M/mm3 (4.00-5.60); RDW 14.9 % (11.9-15.9)
[2019-02-15 16:04] LABS: ALBUMIN 4.3 g/dl (3.4-5.0); BILIRUBIN,TOTAL 0.7 mg/dL (0.2-1); BLOOD UREA NITROGEN 15.8 mg/dL (7-18); CALCIUM 9.8 mg/dL (8.5-10.1); CREATININE 1.2 mg/dL (0.55-1.3); POTASSIUM 4.5 mmol/L (3.5-5.1); TOT PROT 8.1 g/dl (6.4-8.2)
[2019-02-15] MEDS: THIAMINE HCL 100 MG TABLET (FP) PO SCH (21:25)
[2019-02-15] MEDS: MELATONIN 5 MG TABLETS PO PRN (21:25)
[2019-02-15] MEDS: chlordiazePOXIDE HCL 25 MG CAPSULE PO SCH (21:25)
[2019-02-16] MEDS: chlordiazePOXIDE HCL 25 MG CAPSULE PO SCH ×3 (05:39→23:20)
[2019-02-16] MEDS: METHOCARBAMOL 500 MG TABLET PO PRN ×2 (05:40→23:19)
[2019-02-16] MEDS: PRENATAL VITAMINS W/ FOLIC ACID TABLET (FP) PO SCH (09:28)
[2019-02-16] MEDS ORDERED: METHADONE HCL 5 MG TABLET (FOR DETOX USE ONLY) PO ONE (10:00)
--- NOTE | 2019-02-16 13:30 | PN ---
S CIWA - CIWA Score Nausea/Vomitin-No Nausea/No Vomiting Muscle Tremors: 4-Moderate,w/Arms Extend Anxiety: 4-Mod. Anxious/Guarded Agitation: 4-Moderately Restless Paroxysmal Sweats: 1-Minimal Palms Moist Orientation: 0-Oriented Tacttile Disturbances: 0-None Auditory Disturbances: 0-None Visual Disturbances: 0-None Headache: 0-None Present CIWA-Ar Total Score: 13 BHS COWS - Scale Resting Pulse: 1= [place] 81-100 Sweatin= Chills/Flushing Restless Observation: 1= Difficult to Sit Still Pupil Size: 0= Normal to Room Light Bone or Joint Aches: 2= Severe Diffuse Aches Runny Nose/ Eye Tearin= Nasal Congestion GI Upset > 30mins: 0= None Tremor Observation of Outstretched Hands: 1= Tremor [place], Not Seen Yawning Observation: 0= None Anxiety or Irritability: 2=Irritable/Anxious Goose Flesh Skin: 0=Smooth Skin COWS Score: 9 S Progress Note (SOAP) Subjective: sweats and shakes Objective: 02/16/19 13:27 Vital Signs Temperature 97.7 F 02/16/19 13:09 Pulse Rate 54 L 02/16/19 13:09 Respiratory Rate 16 02/16/19 13:09 Blood Pressure 151/84 02/16/19 13:09 O2 Sat by Pulse Oximetry (%) Laboratory Tests 02/15/19 02/15/19 02/15/19 11:30 11:30 11:30 WBC 7.0 RBC 4.84 Hgb 14.8 Hct 45.6 MCV 94.3 MCH 30.6 MCHC 32.5 RDW 14.9 D Plt Count 266 D MPV 9.5 Sodium 134 L Potassium 4.5 Chloride 100 Carbon Dioxide 30 Anion Gap 5 L BUN 15.8 Creatinine 1.2 Est GFR (CKD-EPI)AfAm 84.13 Est GFR (CKD-EPI)NonAf 72.59 Random Glucose 115 H Calcium 9.8 Total Bilirubin 0.7 AST 24 ALT 26 Alkaline Phosphatase 88 Total Protein 8.1 Albumin 4.3 RPR Titer Nonreactive HIV 1&2 Antibody Screen HIV P24 Antigen 02/15/19 11:30 WBC RBC Hgb Hct MCV MCH MCHC RDW Plt Count MPV Sodium Potassium Chloride Carbon Dioxide Anion Gap BUN Creatinine Est GFR (CKD-EPI)AfAm Est GFR (CKD-EPI)NonAf Random Glucose Calcium Total Bilirubin AST ALT Alkaline Phosphatase Total Protein Albumin RPR Titer HIV 1&2 Antibody Screen Negative HIV P24 Antigen Negative 02/16/19 13:30 Labs noted [id number] No acute distress noted Assessment: Withdrawal symptoms present 02/16/19 13:31 Plan: Clonidine prn ordered Encouraged hydration Detox continues
[2019-02-16] MEDS: THIAMINE HCL 100 MG TABLET (FP) PO SCH (23:20)
[2019-02-16] MEDS: MELATONIN 5 MG TABLETS PO PRN (23:22)
[2019-02-17] MEDS: chlordiazePOXIDE 5 MG CAPSULE PO SCH ×3 (05:36→12:58)
[2019-02-17 06:34] VITALS: TEMP 97.7
[2019-02-17 09:29] VITALS: BP 126/82; PULSE 69
[2019-02-17] MEDS ORDERED: METHADONE HCL 10 MG TABLET (FOR DETOX USE ONLY) PO ONE (10:00)
[2019-02-17] MEDS: PRENATAL VITAMINS W/ FOLIC ACID TABLET (FP) PO SCH (10:52)
[2019-02-17] MEDS: METHOCARBAMOL 500 MG TABLET PO PRN (10:54)
--- NOTE | 2019-02-17 13:59 | DS ---
[facility] Detox Discharge Summary Admission Date: 02/15/19 Discharge Date: 02/17/19 - History Present History: Alcohol Dependence, Cannabis Dependence, Opioid Dependence Additional Comments: Patient demanded to leave AMA despite encouragement from staff to complete detox. Patient instructed to call [phone] MART[facility]N if sick/withdrawal sxs and to see his PCP within 3 days. Patient is in stable condition. Pertinent Past History: Asthma Renal calculi - Physical Exam Results Vital Signs: Vital Signs Temperature 97.7 F 02/17/19 09:28 Pulse Rate 69 02/17/19 09:28 Respiratory Rate 16 02/17/19 09:28 Blood Pressure 126/82 02/17/19 09:28 O2 Sat by Pulse Oximetry (%) Pertinent Admission Physical Exam Findings: Withdrawal sxs Laboratory Tests 02/15/19 02/15/19 02/15/19 11:30 11:30 11:30 WBC 7.0 RBC 4.84 Hgb 14.8 Hct 45.6 MCV 94.3 MCH 30.6 MCHC 32.5 RDW 14.9 D Plt Count 266 D MPV 9.5 Sodium 134 L Potassium 4.5 Chloride 100 Carbon Dioxide 30 Anion Gap 5 L BUN 15.8 Creatinine 1.2 Est GFR (CKD-EPI)AfAm 84.13 Est GFR (CKD-EPI)NonAf 72.59 Random Glucose 115 H Calcium 9.8 Total Bilirubin 0.7 AST 24 ALT 26 Alkaline Phosphatase 88 Total Protein 8.1 Albumin 4.3 RPR Titer Nonreactive HIV 1&2 Antibody Screen HIV P24 Antigen 02/15/19 11:30 WBC RBC Hgb Hct MCV MCH MCHC RDW Plt Count MPV Sodium Potassium Chloride Carbon Dioxide Anion Gap BUN Creatinine Est GFR (CKD-EPI)AfAm Est GFR (CKD-EPI)NonAf Random Glucose Calcium Total Bilirubin AST ALT Alkaline Phosphatase Total Protein Albumin RPR Titer HIV 1&2 Antibody Screen Negative HIV P24 Antigen Negative Labs reviewed: serum glucose 115mg/dl (denies DM), could be r/t withdrawal, follow up with PCP for further evaluation - Medication Discharge Medications: Ambulatory Orders Naloxone HCl [Narcan] 4 mg NS ASDIR PRN #1 spray 10/25/18 Albuterol Sulfate Inhaler - [Ventolin HFA Inhaler -] 2 inhaler PO QID PRN - Diagnosis (1) Alcohol dependence with uncomplicated withdrawal Current Visit: Yes Status: Acute (2) Nicotine dependence Current Visit: Yes Status: Chronic Qualifiers: Nicotine product type: cigarettes Substance use status: in withdrawal Qualified Code(s): F17.213 - Nicotine dependence, cigarettes, with withdrawal (3) Opioid dependence with withdrawal Current Visit: Yes Status: Acute (4) Asthma Current Visit: Yes Status: Chronic Qualifiers: Asthma severity: mild Asthma persistence: intermittent Asthma complication type: uncomplicated Qualified Code(s): J45.20 - Mild intermittent asthma, uncomplicated (5) Cannabis dependence, uncomplicated Current Visit: Yes Status: Chronic (6) History of renal stone Current Visit: Yes Status: Chronic (7) Hyperglycemia Current Visit: Yes Status: Acute - AMA Did Patient Leave Against Medical Advice: Yes (Instructed to call 911 M[facility]N if sick/withdrawal sxs)
[2019-02-18] MEDS ORDERED: chlordiazePOXIDE HCL 10 MG CAPSULE PO PRN
[2019-02-18] MEDS ORDERED: chlordiazePOXIDE HCL 10 MG CAPSULE PO SCH (05:00)
[2019-02-18] MEDS ORDERED: METHADONE HCL 5 MG TABLET (FOR DETOX USE ONLY) PO ONE (06:00)
[2019-02-19] MEDS ORDERED: chlordiazePOXIDE HCL 10 MG CAPSULE PO ONE (05:00)
== END 2019-02-17 13:45 | disposition left against medical advice (07) | DRG 770 ==
LOC: YASAS 09:54 → Y6N 11:26
PROVIDERS: ADMIT Allergy & Immunology; ATTEND Allergy & Immunology
PROC: HZ2ZZZZ Detoxification Services for Substance Abuse Treatment (ICD-10-PCS; principal; 2019-02-15)
DX: F11.23 Opioid dependence with withdrawal (principal); F10.230 Alcohol dependence with withdrawal, uncomplicated; F12.20 Cannabis dependence, uncomplicated; F17.210 Nicotine dependence, cigarettes, uncomplicated; J45.20 Mild intermittent asthma, uncomplicated; R73.9 Hyperglycemia, unspecified; Z87.442 Personal history of urinary calculi
CPT/HCPCS: 36415; 80053; 85027; 86593; 87389

== ENCOUNTER 2019-03-01 14:30 | Inpatient (IN) | payer OTHER ==
[2019-03-01 14:44] VITALS: BMI 27.3
--- NOTE | 2019-03-01 19:28 | HP ---
COWS - Scale Resting Pulse: 0= [place] 80 or Below Sweatin= No chills or Flushing Restless Observation: 1= Difficult to Sit Still Pupil Size: 0= Normal to Room Light Bone or Joint Aches: 0= None Runny Nose/ Eye Tearin= Nasal Congestion GI Upset > 30mins: 0= None Tremor Observation: 0= None Yawning Observation: 0= None Anxiety or Irritability: 0= None Goose Flesh Skin: 0=Smooth Skin COWS Score: 2 CIWA Score - Admission Criteria OASAS Guidelines: Admission for Medically Managed Detox: Requires at least one of the followin. CIWA greater than 12 2. Seizures within the past 24 hours 3. Delirium tremens within the past 24 hours 4. Hallucinations within the past 24 hours 5. Acute intervention needed for co occurring medical disorder 6. Acute intervention needed for co occurring psychiatric disorder 7. Severe withdrawal that cannot be handled at a lower level of care (continued vomiting, continued diarrhea, abnormal vital signs) requiring intravenous medication and/or fluids 8. Admitting History and Physical - Past Medical History Pulmonary: Yes: Asthma - Smoking History Smoking history: Current every day smoker Have you smoked in the past 12 months: Yes Aproximately how many cigarettes per day: 5 - Alcohol/Substance Use Hx Alcohol Use: Yes History of Substance Use: reports: Heroin - Social History ADL: Independent History of Recent Travel: No Admission [facility] Allergies/Adverse Reactions: Allergies Allergy/AdvReac Type Severity Reaction Status Date / Time No Known Allergies Allergy Verified 03/01/19 14:37 History of Present Illness: 43 y.o. male here for heroin use , left detox 02/17/2019 , heroin : 5 bags/day denies IV use , latest use 2 weeks ago etoh - denies use since d/c cannabis -once / month tobacco : 02/09 ppd pmhx : htn , hep C , asthma Exam Limitations: Clinical Condition - Ebola screening Have you traveled outside of the country in the last 21 days: No Have you had contact with anyone from an Ebola affected area: No Do you have a fever: No - Review of Systems Constitutional: No Symptoms Reported EENT: reports: Other (glasses , denies dysphagia) Respiratory: reports: Cough (2 weeks , non- productive, associates w/ asthma , has inhaler Albuterol) Cardiac: reports: No Symptoms Reported GI: reports: No Symptoms Reported : reports: No Symptoms Reported Musculoskeletal: reports: No Symptoms Reported Integumentary: reports: Other (slipped when getting out of a minivan and hit right kwong w/ abrasion) Neuro: reports: No Symptoms reported Endocrine: reports: No Symptoms Reported Hematology: reports: No Symptoms Reported Psychiatric: reports: Orientated x3 Patient History - Patient Medical History Hx Anemia: No Hx Asthma: Yes (on albuterol inhaler) Hx Chronic Obstructive Pulmonary Disease (COPD): No Hx Cancer: No Hx Cardiac Disorders: No Hx Congestive Heart Failure: No Hx Hypertension: No Hx Hypercholesterolemia: No Hx Pacemaker: No HX Cerebrovascular Accident: No Hx Seizures: No Hx Dementia: No Hx Diabetes: No Hx Gastrointestinal Disorders: No Hx Liver Disease: No Hx Genitourinary Disorders: Yes (kidney stones) Hx Sexually Transmitted Disorders: No Hx Renal Disease (ESRD): No Hx Thyroid Disease: No Hx Human Immunodeficiency Virus (HIV): No (Last Tested: 08/30/18 negative) Hx Hepatitis C: No (Last Tested: 04/2017: NEGATIVE.) Hx Depression: No Hx Suicide Attempt: No Hx Bipolar Disorder: No Hx Schizophrenia: No - Patient Surgical History Past Surgical History: No Hx Neurologic Surgery: No Hx Cataract Extraction: No Hx Cardiac Surgery: No Hx Lung Surgery: No Hx Breast Surgery: No Hx Breast Biopsy: No Hx Abdominal Surgery: No Hx Appendectomy: No Hx Cholecystectomy: No Hx Genitourinary Surgery: No Hx Section: No Hx Orthopedic Surgery: No Other Surgical History: DENIES. Anesthesia Reaction: No - PPD History Date: 07/21/18 Results: 0 mm - Smoking Cessation Smoking history: Current every day smoker Have you smoked in the past 12 months: Yes Aproximately how many cigarettes per day: 5 Cigars Per Day: 0 Hx Chewing Tobacco Use: No Initiated information on smoking cessation: Yes 'Breaking Loose' booklet given: 03/01/19 - Substances abused Heroin Substance route: Inhalation Amount used: 5 bags Age of first use: 38 Date of last use: 02/17/19 Marijuana/Hashish Substance route: Smoking Frequency: 1-3 times last 30 days Amount used: 2 joints Age of first use: 19 Date of last use: 02/15/19 Admission Physical Exam BHS - Vital Signs Vital Signs: Vital Signs - 24 hr 03/01/19 03/01/19 14:35 17:27 Temperature 97.6 F 97.6 F Pulse Rate 72 72 Respiratory 20 20 Rate Blood Pressure 150/104 H 150/104 H - Physical General Appearance: Yes: No Apparent Distress HEENTM: Yes: EOMI, Hearing grossly Normal, Normocephalic, Normal Voice, Nasal Congestion Respiratory: Yes: Chest Non-Tender, Lungs Clear, Normal Breath Sounds, No Respiratory Distress, No Accessory Muscle Use Neck: Yes: No masses,lesions,Nodules, Trachea in good position Cardiology: Yes: Regular Rhythm, Regular Rate, S1, S2 Abdominal: Yes: Non Tender, Soft Musculoskeletal: Yes: full range of Motion, Gait Steady Extremities: Yes: Normal Range of Motion, Non-Tender, Other (OA deformities harrison hands) Neurological: Yes: Alert, Motor Strength 5/5 Integumentary: Yes: Warm, Other (superficial excoriation right anterior tibia) - Diagnostic (1) Opiate dependence Current Visit: Yes Status: Chronic Qualifiers: Substance use status: uncomplicated Qualified Code(s): F11.20 - Opioid dependence, uncomplicated Comment: risks and limitations of suboxone reviewed = trial suboxone 8mg sl, suboxone agreement discussed, safekeeping emphasized, importance of attending group discussed (2) Cannabis dependence Current Visit: Yes Status: Chronic Breathalyzer - Breathalyzer Breathalyzer: 0 Urine Drug Screen - Test Device Lot number: [id number] Expiration date: 09/05/20 - Control Is test valid?: Yes - Results Drug screen NEGATIVE: No Urine drug screen results: THC-Marijuana, FEN-Fentanyl, MOP-Opiates, BZO- Benzodiazepines Inpatient Rehab Admission - Rehab Decision to Admit Inpatient rehab admission?: Yes - Initial Determination Are CD services needed?: Yes Free of communicable disease: Yes Not in need of hospitalization: Yes - Rehab Admission Criteria Previous failed treatment: Yes Poor recovery environment: No Comorbidities: No Lacks judgement: Yes Patient is meeting Inpatient Rehab admission criteria:: Yes
[2019-03-01] MEDS ORDERED: P-EPHED 60MG/TRIPROLIDI 2.5MG TABLET PO PRN (19:42)
[2019-03-01] MEDS ORDERED: IBUPROFEN 400 MG TABLET (FP) PO PRN (19:42)
[2019-03-01] MEDS ORDERED: LOPERAMIDE HCL 2 MG CAPSULE PO PRN (19:42)
[2019-03-01] MEDS ORDERED: ACETAMINOPHEN 325 MG TABLET (FP) PO PRN (19:42)
[2019-03-01] MEDS ORDERED: guaiFENesin 200 MG/10 ML 10 ML UNIT-DOSE CUPS PO PRN (19:42)
[2019-03-01] MEDS ORDERED: MAGNESIUM HYDROX 2400MG/30ML ORAL SUSPENSION 30 ML CUP PO PRN (19:42)
[2019-03-01] MEDS ORDERED: MAG HYDROX/AL HYDROX/SIMETH 30 ML UNIT-DOSE CUP PO PRN (19:42)
[2019-03-01] MEDS ORDERED: MAGNESIUM CITRATE 300 ML BOTTLE PO PRN (19:42)
[2019-03-01] MEDS ORDERED: MENTHOL/PHENOL 1 EACH UD MM PRN (19:42)
[2019-03-01] MEDS: MELATONIN 5 MG TABLETS PO PRN (21:59)
[2019-03-01] MEDS: THIAMINE HCL 100 MG TABLET (FP) PO SCH (21:59)
[2019-03-01] MEDS: ALBUTEROL SO4 HFA INHALER IH PRN (22:06)
[2019-03-01] MEDS: BACITRACIN/POLYMYXIN B SULFATE 15 GM TUBE TP SCH (23:05)
[2019-03-02] MEDS: ALBUTEROL SO4 HFA INHALER IH PRN ×2 (09:12→22:19)
[2019-03-02] MEDS: hydrOXYzine PAMOATE 50 MG CAPSULE (FP) PO PRN (10:11)
[2019-03-02] MEDS: PRENATAL VITAMINS W/ FOLIC ACID TABLET (FP) PO SCH (10:12)
[2019-03-02] MEDS: BACITRACIN/POLYMYXIN B SULFATE 15 GM TUBE TP SCH ×2 (10:13→22:17)
[2019-03-02] MEDS: MELATONIN 5 MG TABLETS PO PRN (22:19)
[2019-03-02] MEDS: THIAMINE HCL 100 MG TABLET (FP) PO SCH (22:19)
[2019-03-03] MEDS: hydrOXYzine PAMOATE 50 MG CAPSULE (FP) PO PRN ×2 (06:59→10:53)
[2019-03-03] MEDS: ALBUTEROL SO4 HFA INHALER IH PRN (07:00)
[2019-03-03] MEDS: PRENATAL VITAMINS W/ FOLIC ACID TABLET (FP) PO SCH (10:53)
[2019-03-03] MEDS: BACITRACIN/POLYMYXIN B SULFATE 15 GM TUBE TP SCH ×2 (10:54→21:44)
[2019-03-03 11:16] LABS: URINE APPEARANCE Clear; URINE BILIRUBIN Negative (NEGATIVE); URINE COLOR Yellow; URINE GLUCOSE (UA) Negative (NEGATIVE); URINE KETONE Negative (NEGATIVE); URINE LEUK ESTERASE Negative (NEGATIVE); URINE NITRITE Negative (NEGATIVE); URINE PROTEIN Negative (NEGATIVE); URINE UROBILINOGEN 0.2 mg/dL (0.2-1.0)
[2019-03-03] MEDS: METHOCARBAMOL 500 MG TABLET PO PRN ×2 (13:51→21:44)
[2019-03-03] MEDS: MELATONIN 5 MG TABLETS PO PRN (21:44)
[2019-03-03] MEDS: THIAMINE HCL 100 MG TABLET (FP) PO SCH (21:44)
[2019-03-04 07:06] VITALS: BP 136/92; PULSE 78; TEMP 98
--- NOTE | 2019-03-04 11:23 | DS ---
[facility] Rehab Discharge Summary - [facility] Rehab Discharge Summary Admission Date: 03/01/19 Discharge Date: 03/04/19 - History Present History: Alcohol dependence, Cannabis dependence, Opioid dependence Additional Comments: Pt is a 43 y/o male with a HX OF SHANNON admitted to rehab on 03/01/19 and declined to continue with treatment today stating he wants to go back to his family. Pt is known to this treatment facility with a hx of multiple incomplete treatment stay/AMA. All efforts to encourage patient to stay in treatment failed. Pt reports he has no PCP but states he has a "Kidney Doctor, Dr. Vera" in [place], [place] and affiliated with [facility] per patient account. Pt goes to [facility] for CD aftercare and will follow up care with [facility] today. Pertinent Past History: Asthma(albuterol inhaler) HTN(no meds) Hx Renal Stone - Discharge Physical Exam Vital Signs: Vital Signs Temperature 98.0 F 03/04/19 07:05 Pulse Rate 78 03/04/19 07:05 Respiratory Rate 18 03/04/19 07:05 Blood Pressure 136/92 03/04/19 07:05 O2 Sat by Pulse Oximetry (%) Alert o x 3,denies s/h/i nad oob ambulating with steady gait cardiac:s1 s2,rrr lungs:cta,harrison. abdomen:+bs,soft,nt,nd extremities/skin:no edema,right LE with old abrasion/scabbed(reports "I bumped my leg"). Pertinent Admission Physical Exam Findings: Laboratory Tests 03/03/19 08:10 Urine Color Yellow Urine Appearance Clear Urine pH 7.0 Ur Specific [place] 1.025 Urine Protein Negative Urine Glucose (UA) Negative Urine Ketones Negative Urine Blood Negative Urine Nitrite Negative Urine Bilirubin Negative Urine Urobilinogen 0.2 Ur Leukocyte Esterase Negative - Treatment Discharge Condition: Discharge condition good Hospital Course: safe rehab stay from 03/01 - 03/04/19. Pt was in detox from 02/15/19 to 02/17/19 and signed out AMA before returning to [facility] rehab on 03/01/19 then signed out AMA today.. f/u with CD at [facility] - Medication Discharge Medications: Ambulatory Orders Naloxone HCl [Narcan] 4 mg NS ASDIR PRN #1 spray 10/25/18 Albuterol Sulfate Inhaler - [Ventolin HFA Inhaler -] 2 inhaler PO QID PRN - Medication-Assisted Treatment (MAT) Medication-Assisted Treatment (MAT): No - Discharge Instructions Diet, activity, other medical instructions: Diet:Regular Activity: oob ad hanny Other medical instructions:follow up with your primary care provider 1 week after discharge follow up @[facility] for CD aftercare. - Diagnosis (1) History of asthma Current Visit: Yes Status: Chronic (2) Opioid dependence Current Visit: Yes Status: Chronic Qualifiers: Substance use status: uncomplicated Qualified Code(s): F11.20 - Opioid dependence, uncomplicated (3) Cannabis dependence Current Visit: Yes Status: Chronic (4) Alcohol dependence Current Visit: Yes Status: Chronic Qualifiers: Substance use status: uncomplicated Qualified Code(s): F10.20 - Alcohol dependence, uncomplicated (5) Cannabis dependence Current Visit: Yes Status: Chronic (6) Nicotine dependence Current Visit: Yes Status: Chronic Qualifiers: Nicotine product type: cigarettes Substance use status: uncomplicated Qualified Code(s): F17.210 - Nicotine dependence, cigarettes, uncomplicated (7) HTN (hypertension) Current Visit: Yes Status: Chronic Qualifiers: Hypertension type: essential hypertension Qualified Code(s): I10 - Essential (primary) hypertension - Follow-up Referral Minutes to complete discharge: 20 - AMA Did Patient Leave Against Medical Advice: Yes
[2019-03-04] MEDS: BACITRACIN/POLYMYXIN B SULFATE 15 GM TUBE TP SCH (11:24)
[2019-03-04] MEDS: PRENATAL VITAMINS W/ FOLIC ACID TABLET (FP) PO SCH (11:24)
== END 2019-03-04 11:00 | disposition left against medical advice (07) | DRG 770 ==
LOC: YASAS 14:30 → Y5N 20:03 → Y6N 20:03 → UNDOADMIN 20:03 → Y5N 21:12 → Y6N 21:12
PROVIDERS: ADMIT Allergy & Immunology; ATTEND Allergy & Immunology
PROC: HZ42ZZZ Group Counseling for Substance Abuse Treatment, Cognitive-Behavioral (ICD-10-PCS; principal; 2019-03-01)
DX: F11.20 Opioid dependence, uncomplicated (principal); F10.20 Alcohol dependence, uncomplicated; F12.20 Cannabis dependence, uncomplicated; F17.210 Nicotine dependence, cigarettes, uncomplicated; I10 Essential (primary) hypertension; J45.909 Unspecified asthma, uncomplicated; Z87.442 Personal history of urinary calculi
CPT/HCPCS: 81003

== ENCOUNTER 2019-03-29 20:04 | Inpatient (IN) | payer OTHER ==
--- NOTE | 2019-03-29 20:48 | BHS.RME ---
Substance Use & Tx History - Last Treatment Where was last treatment: Detox COWS - Scale Resting Pulse: 2= [place] 101-120 Sweatin= No chills or Flushing Restless Observation: 0= Sits Still Pupil Size: 0= Normal to Room Light Bone or Joint Aches: 2= Severe Diffuse Aches Runny Nose/ Eye Tearin= Nasal Congestion GI Upset > 30mins: 3= Vomiting/Diarrhea (vomiting x 2, no diarrhea) Tremor Observation: 2= Slight Tremor Visible Yawning Observation: 0= None Anxiety or Irritability: 1=Feels Anxious/Irritable Goose Flesh Skin: 0=Smooth Skin COWS Score: 11
[2019-03-29 21:17] VITALS: BMI 25.7
--- NOTE | 2019-03-29 21:32 | HP ---
COWS - Scale Resting Pulse: 2= ND 101-120 Sweatin=Flushed/Facial Moisture Restless Observation: 0= Sits Still Pupil Size: 2= Moderately Dilated (Pupils = 4 mm) Bone or Joint Aches: 2= Severe Diffuse Aches Runny Nose/ Eye Tearin= Nasal Congestion GI Upset > 30mins: 3= Vomiting/Diarrhea (vomiting x 2, no diarrhea) Tremor Observation: 2= Slight Tremor Visible Yawning Observation: 0= None Anxiety or Irritability: 1=Feels Anxious/Irritable Goose Flesh Skin: 0=Smooth Skin COWS Score: 15 CIWA Score - Admission Criteria OASAS Guidelines: Admission for Medically Managed Detox: Requires at least one of the followin. CIWA greater than 12 2. Seizures within the past 24 hours 3. Delirium tremens within the past 24 hours 4. Hallucinations within the past 24 hours 5. Acute intervention needed for co occurring medical disorder 6. Acute intervention needed for co occurring psychiatric disorder 7. Severe withdrawal that cannot be handled at a lower level of care (continued vomiting, continued diarrhea, abnormal vital signs) requiring intravenous medication and/or fluids 8. Admitting History and Physical - Past Medical History Pulmonary: Yes: Asthma - Smoking History Smoking history: Current every day smoker Have you smoked in the past 12 months: Yes Aproximately how many cigarettes per day: 5 - Alcohol/Substance Use Hx Alcohol Use: Yes History of Substance Use: reports: Heroin - Social History ADL: Independent History of Recent Travel: No Admission ROS S - [facility] Chief Complaint: Here because I need to do the right thing and stop drugs. Allergies/Adverse Reactions: Allergies Allergy/AdvReac Type Severity Reaction Status Date / Time No Known Allergies Allergy Verified 03/29/19 21:17 History of Present Illness: 43 yo presents w/ opioid withdrawal symptoms seeking detox. Addressed prior admissions and incomplete treatments in past. States will try to stay. Utox: +THC/FEN/MOP/MTD JUNIE: 0.0 Multiple opiate use disorders. States MTD is illicit and last used 2 days ago. Currently using 5 bags/ day nasally. (Used to use IV) Patient encouraged to consider MAT post discharge. Marijuana use 1-2x/month Nicotine use. Smokes 5/day. Stopped alcohol months ago. Hx: Overdose 2019. Denies seizures or blackouts. PMHx: Kidney stones, HTN (not on meds); Asthma (last exacerbation today) EK08/2018 - reviewed. PRP: 02/2019: Non-reactive. MHHx: Depression. Anxiety. No MH Provider. Not on MH meds. Denies suicide or violent ideation. SHx: Domiciled. Unemployed. Denies legal issues. Patient Name: Bertin Beard Date: 1975 Address: [address] [place] [address] Sex: Male Rx Written Rx Dispensed Drug Quantity Days Supply Prescriber Name 09/03/2018 09/03/2018 buprenorphine-naloxone 8-2 mg sl film 7 7 Aliyah Murdock NP, PHD 08/13/2018 08/13/2018 buprenorphine-naloxone 8-2 mg sl film Exam Limitations: No Limitations - Ebola screening Have you traveled outside of the country in the last 21 days: No Have you had contact with anyone from an Ebola affected area: No Have you been sick,other than usual withdrawal symptoms: No Do you have a fever: No - Review of Systems Constitutional: Chills, Diaphoresis, Changes in sleep (Difficulty falling asleep ), Weight Stable EENT: reports: Blurred Vision, Nose Congestion Respiratory: reports: No Symptoms reported Cardiac: reports: No Symptoms Reported GI: reports: Diarrhea (Watery, brownish this a,), Nausea, Vomiting (3 times today -) Musculoskeletal: reports: Back Pain (Low back pain r/t withdrawal), Muscle Pain (Generalized muscle pain r/t withdrawal. "10") Integumentary: reports: Lesions ((R) kwong scrape) Neuro: reports: Headache ([place]. [place]. "4"), Tremors Endocrine: reports: Increased Thirst Hematology: reports: No Symptoms Reported Psychiatric: reports: Judgement Intact, Agitated, Anxious, Depressed (Denies thoughts of harming self or others.) Patient History - Patient Medical History Hx Anemia: No Hx Asthma: Yes (PUFF) Hx Chronic Obstructive Pulmonary Disease (COPD): No Hx Cancer: No Hx Cardiac Disorders: No Hx Congestive Heart Failure: No Hx Hypertension: No Hx Hypercholesterolemia: No Hx Pacemaker: No HX Cerebrovascular Accident: No Hx Seizures: No Hx Dementia: No Hx Diabetes: No Hx Gastrointestinal Disorders: No Hx Liver Disease: No Hx Genitourinary Disorders: No Hx Sexually Transmitted Disorders: No Hx Renal Disease (ESRD): No Hx Thyroid Disease: No Hx Human Immunodeficiency Virus (HIV): No (Last Tested: 08/30/18 negative) Hx Hepatitis C: No (Last Tested: 04/2017: NEGATIVE.) Hx Depression: Yes Hx Suicide Attempt: No Hx Bipolar Disorder: No Hx Schizophrenia: No - Patient Surgical History Past Surgical History: No Hx Neurologic Surgery: No Hx Cataract Extraction: No Hx Cardiac Surgery: No Hx Lung Surgery: No Hx Breast Surgery: No Hx Breast Biopsy: No Hx Abdominal Surgery: No Hx Appendectomy: No Hx Cholecystectomy: No Hx Genitourinary Surgery: No Hx Section: No Hx Orthopedic Surgery: No Other Surgical History: DENIES. Anesthesia Reaction: No - PPD History Previous Implant?: Yes Documented Results: Negative w/proof Implanted On Prior [facility] Admission?: Yes Date: 07/21/18 Results: 0MM PPD to be Administered?: No - Smoking Cessation Smoking history: Current every day smoker Have you smoked in the past 12 months: Yes Aproximately how many cigarettes per day: 5 Cigars Per Day: 0 Hx Chewing Tobacco Use: No Initiated information on smoking cessation: Yes 'Breaking Loose' booklet given: 03/29/19 - Substance & Tx. History Hx Alcohol Use: Yes Hx Substance Use: Yes Substance Use Type: None, Alcohol, Heroin, Marijuana, Opiates Hx Substance Use Treatment: Yes (detox, rehab w/ incompletion of tx.) - Substances abused Heroin Substance route: Inhalation Frequency: Daily Amount used: 5BAGS Age of first use: 40 Date of last use: 03/28/19 Marijuana/Hashish Substance route: Smoking Frequency: 1-3 times last 30 days Amount used: 2BLUNTS Age of first use: 19 Date of last use: 03/07/19 Admission Physical Exam BHS - Vital Signs Vital Signs: Vital Signs - 24 hr 03/29/19 20:50 Temperature 97.6 F Pulse Rate 104 H Respiratory 18 Rate Blood Pressure 162/98 - Physical General Appearance: Yes: Nourished, Mild Distress, Tremorous (Mild tremors) HEENTM: Yes: EOMI, Hearing grossly Normal, Normocephalic, Normal Voice, LIDIA ( Pupils = 4 mm), Pharynx Normal, Nasal Congestion Respiratory: Yes: Lungs Clear, Normal Breath Sounds, No Respiratory Distress Neck: Yes: No masses,lesions,Nodules, Supple Breast: Yes: Breast Exam Deferred Cardiology: Yes: Regular Rhythm, S1, S2, Tachycardia Abdominal: Yes: Non Tender, Flat, Soft, Increased Bowel Sounds Genitourinary: Yes: Within Normal Limits Back: Yes: Normal Inspection Musculoskeletal: Yes: full range of Motion, Gait Steady Extremities: Yes: Normal Capillary Refill, Normal Inspection Neurological: Yes: audit 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 II-XII NML intact, Fully Oriented, Alert, Motor Strength 5/5, Normal Mood/Affect, Normal Response Integumentary: Yes: Normal Color, Warm, Moist (Increased facial mositure) Lymphatic: Yes: Within Normal Limits - Diagnostic (1) Abrasion Current Visit: Yes Status: Acute Comment: (R) kwong - superficial (2) Cannabis use disorder, mild, abuse Current Visit: Yes Status: Chronic (3) Dehydration Current Visit: Yes Status: Acute (4) Opioid dependence with withdrawal Current Visit: Yes Status: Acute (5) History of asthma Current Visit: Yes Status: Chronic (6) History of renal stone Current Visit: No Status: Chronic (7) Insomnia Current Visit: Yes Status: Chronic Qualifiers: Insomnia type: unspecified Qualified Code(s): G47.00 - Insomnia, unspecified (8) Nicotine dependence Current Visit: Yes Status: Chronic Qualifiers: Nicotine product type: cigarettes Substance use status: uncomplicated Qualified Code(s): F17.210 - Nicotine dependence, cigarettes, uncomplicated Comment: counseled cessation - interested in gum - same Rx Cleared for Admission S - Detox or Rehab [facility] Level of Care: Medically Managed Detox Regimen/Protocol: Methadone Claeared for Rehab Admission: No Breathalyzer - Breathalyzer Breathalyzer: 0 Urine Drug Screen - Test Device Lot number: [id number] Expiration date: 01/05/21 - Control Is test valid?: Yes - Results Drug screen NEGATIVE: No Urine drug screen results: THC-Marijuana, FEN-Fentanyl, MOP-Opiates, MTD- Methadone Inpatient Rehab Admission - Rehab Decision to Admit Inpatient rehab admission?: No
[2019-03-29] MEDS ORDERED: MAGNESIUM CITRATE 300 ML BOTTLE PO PRN (22:00)
[2019-03-29] MEDS ORDERED: METHADONE HCL 10 MG TABLET (FOR DETOX USE ONLY) PO ONE (22:00)
[2019-03-29] MEDS ORDERED: MAGNESIUM HYDROX 2400MG/30ML ORAL SUSPENSION 30 ML CUP PO PRN (22:00)
[2019-03-29] MEDS ORDERED: IBUPROFEN 400 MG TABLET (FP) PO PRN (22:00)
[2019-03-29] MEDS ORDERED: NICOTINE POLACRILEX 2 MG GUM BUC PRN (22:00)
[2019-03-29] MEDS ORDERED: ACETAMINOPHEN 325 MG TABLET (FP) PO PRN ×2 (22:00)
[2019-03-29] MEDS ORDERED: cloNIDine HCL 0.1 MG TABLET PO PRN (22:00)
[2019-03-29] MEDS ORDERED: MAG HYDROX/AL HYDROX/SIMETH 30 ML UNIT-DOSE CUP PO PRN (22:00)
[2019-03-29] MEDS ORDERED: MENTHOL/PHENOL 1 EACH UD MM PRN (22:00)
[2019-03-29] MEDS ORDERED: BISMUTH SUBSALICYLATE 524 MG/30 ML UD PO PRN (22:00)
[2019-03-29] MEDS ORDERED: diazePAM 5 MG TABLET PO PRN (22:06)
[2019-03-29] MEDS: THIAMINE HCL 100 MG TABLET (FP) PO SCH (22:59)
[2019-03-29] MEDS: traZODone HCL 50 MG TABLET (FP) PO PRN (22:59)
[2019-03-29] MEDS: METHOCARBAMOL 500 MG TABLET PO PRN (23:02)
[2019-03-30] MEDS: ALBUTEROL SO4 HFA INHALER IH PRN ×2 (00:59→13:31)
[2019-03-30] MEDS ORDERED: METHADONE HCL 5 MG TABLET (FOR DETOX USE ONLY) ONE (08:48)
[2019-03-30] MEDS ORDERED: METHADONE HCL 10 MG TABLET (FOR DETOX USE ONLY) ONE (08:48)
[2019-03-30 09:41] LABS: HEMATOCRIT 37.7 % (35.4-49); HEMOGLOBIN 12.6 GM/dL (11.7-16.9); MCH 31.2 pg (25.7-33.7); MCHC 33.3 g/dl (32.0-35.9); MEAN CELL VOLUME 93.6 fl (80-96); MEAN PLT VOLUME 9.1 fl (7.5-11.1); PLATELET COUNT 226 K/MM3 (134-434); RBC 4.03 M/mm3 (4.00-5.60); WHITE BLOOD COUNT 6.4 K/mm3 (4.0-10.0)
[2019-03-30 09:46] LABS: ALBUMIN 3.4 g/dl (3.4-5.0); BILIRUBIN,TOTAL 0.2 mg/dL (0.2-1); BLOOD UREA NITROGEN 20.1 mg/dL (7-18); CALCIUM 8.9 mg/dL (8.5-10.1); POTASSIUM 4.2 mmol/L (3.5-5.1); TOT PROT 6.2 g/dl (6.4-8.2)
[2019-03-30] MEDS ORDERED: METHADONE (DETOX) 20 MG, METHADONE (DETOX) 5 MG PO ONE (10:00)
[2019-03-30] MEDS: BACITRACIN 15 GM TUBE TOPICAL OINTMENT TP SCH (10:10)
[2019-03-30] MEDS: NICOTINE 14 MG/24 HOURS TOPICAL PATCH TD SCH (10:10)
[2019-03-30] MEDS: PRENATAL VITAMINS W/ FOLIC ACID TABLET (FP) PO SCH (10:10)
[2019-03-30] MEDS: diazePAM 5 MG TABLET PO PRN (10:12)
[2019-03-30] MEDS: METHOCARBAMOL 500 MG TABLET PO PRN ×2 (10:13→22:20)
--- NOTE | 2019-03-30 16:47 | PN ---
BHS COWS - Scale Resting Pulse: 0= DC 80 or Below Sweatin= Chills/Flushing Restless Observation: 1= Difficult to Sit Still Pupil Size: 0= Normal to Room Light Bone or Joint Aches: 2= Severe Diffuse Aches Runny Nose/ Eye Tearin= Nasal Congestion GI Upset > 30mins: 1= Stomach Cramp Tremor Observation of Outstretched Hands: 0= None Yawning Observation: 1= 1-2x During Session Anxiety or Irritability: 2=Irritable/Anxious Goose Flesh Skin: 0=Smooth Skin COWS Score: 9 BHS Progress Note (SOAP) Subjective: Sweating, Body Aches, Interrupted Sleep. Objective: PATIENT A & O X 3, OBSERVED AMBULATING ON DETOX UNIT UNASSISTED. IN NO ACUTE DISTRESS. 03/30/19 16:45 Vital Signs Temperature 97.7 F 03/30/19 12:35 Pulse Rate 74 03/30/19 12:35 Respiratory Rate 17 03/30/19 12:35 Blood Pressure 126/73 03/30/19 12:35 O2 Sat by Pulse Oximetry (%) Laboratory Tests 03/30/19 03/30/19 07:00 07:00 WBC 6.4 RBC 4.03 Hgb 12.6 Hct 37.7 D MCV 93.6 MCH 31.2 MCHC 33.3 RDW 14.0 Plt Count 226 MPV 9.1 Sodium 138 Potassium 4.2 Chloride 105 Carbon Dioxide 29 Anion Gap 4 L BUN 20.1 H Creatinine 1.0 Est GFR (CKD-EPI)AfAm 104.88 Est GFR (CKD-EPI)NonAf 90.49 Random Glucose 99 Calcium 8.9 Total Bilirubin 0.2 AST 19 ALT 22 Alkaline Phosphatase 69 Total Protein 6.2 L Albumin 3.4 LABS NOTED. Assessment: 03/30/19 16:46 WITHDRAWAL SYMPTOMS. Plan: CONTINUE DETOX. INCREASE DAILY ORAL WATER INTAKE. PRN ROBAXIN ORAL RECOMMENDED FOR BODY ACHES/MUSCLE SPASMS.
[2019-03-30] MEDS: traZODone HCL 50 MG TABLET (FP) PO PRN (22:19)
[2019-03-30] MEDS: MELATONIN 5 MG TABLETS PO PRN (22:19)
[2019-03-30] MEDS: THIAMINE HCL 100 MG TABLET (FP) PO SCH (22:19)
[2019-03-31] MEDS ORDERED: METHADONE HCL 10 MG TABLET (FOR DETOX USE ONLY) PO ONE (10:00)
[2019-03-31] MEDS: NICOTINE 14 MG/24 HOURS TOPICAL PATCH TD SCH (10:11)
[2019-03-31] MEDS: PRENATAL VITAMINS W/ FOLIC ACID TABLET (FP) PO SCH (10:11)
[2019-03-31] MEDS: METHOCARBAMOL 500 MG TABLET PO PRN (10:13)
[2019-03-31] MEDS: diazePAM 5 MG TABLET PO PRN ×2 (10:14→22:07)
[2019-03-31] MEDS: BACITRACIN 15 GM TUBE TOPICAL OINTMENT TP SCH (11:02)
--- NOTE | 2019-03-31 15:13 | PN ---
BHS COWS - Scale Resting Pulse: 1= KS 81-100 Sweatin= Chills/Flushing Restless Observation: 0= Sits Still Pupil Size: 0= Normal to Room Light Bone or Joint Aches: 2= Severe Diffuse Aches Runny Nose/ Eye Tearin= None GI Upset > 30mins: 2= Nausea/Diarrhea Tremor Observation of Outstretched Hands: 2= Slight Tremor Visible Yawning Observation: 0= None Anxiety or Irritability: 2=Irritable/Anxious Goose Flesh Skin: 0=Smooth Skin COWS Score: 10 BHS Progress Note (SOAP) Subjective: Sweating, back pain Objective: 03/31/19 15:10 Last Vital Signs Temp Pulse Resp BP Pulse Ox 98.0 F 82 16 137/81 03/31/19 12:42 03/31/19 12:42 03/31/19 12:42 03/31/19 12:42 Elevated b/p: denies htn, most likely r/t withdrawal, on clonidine prn Laboratory Tests 03/30/19 03/30/19 07:00 07:00 WBC 6.4 RBC 4.03 Hgb 12.6 Hct 37.7 D MCV 93.6 MCH 31.2 MCHC 33.3 RDW 14.0 Plt Count 226 MPV 9.1 Sodium 138 Potassium 4.2 Chloride 105 Carbon Dioxide 29 Anion Gap 4 L BUN 20.1 H Creatinine 1.0 Est GFR (CKD-EPI)AfAm 104.88 Est GFR (CKD-EPI)NonAf 90.49 Random Glucose 99 Calcium 8.9 Total Bilirubin 0.2 AST 19 ALT 22 Alkaline Phosphatase 69 Total Protein 6.2 L Albumin 3.4 Labs reviewed: bun elevated Assessment: 03/31/19 15:12 Withdrawal sxs Noted with elevated b/p and azotemia Plan: Continue detox Elevated b/p: most likely due to withdrawal, continue clonidine prn, monitor b/p Azotemia: encouraged PO water intake
[2019-03-31] MEDS ORDERED: cloNIDine HCL 0.1 MG TABLET PO PRN (15:20)
[2019-03-31] MEDS: THIAMINE HCL 100 MG TABLET (FP) PO SCH (22:05)
[2019-03-31] MEDS: MELATONIN 5 MG TABLETS PO PRN (22:05)
[2019-03-31] MEDS ORDERED: diazePAM 5 MG TABLET PO PRN (22:06)
--- NOTE | 2019-04-01 09:24 | DS ---
[facility] Detox Discharge Summary Admission Date: 03/29/19 Discharge Date: 04/01/19 - History Present History: Opioid Dependence Pertinent Past History: Pt admitted 2 days for opioid detox. Pt would like to leave today. Has to go to work. 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 Leaving AMA. Received methadone 15mg today Laboratory Tests 03/30/19 03/30/19 07:00 07:00 WBC 6.4 RBC 4.03 Hgb 12.6 Hct 37.7 D MCV 93.6 MCH 31.2 MCHC 33.3 RDW 14.0 Plt Count 226 MPV 9.1 Sodium 138 Potassium 4.2 Chloride 105 Carbon Dioxide 29 Anion Gap 4 L BUN 20.1 H Creatinine 1.0 Est GFR (CKD-EPI)AfAm 104.88 Est GFR (CKD-EPI)NonAf 90.49 Random Glucose 99 Calcium 8.9 Total Bilirubin 0.2 AST 19 ALT 22 Alkaline Phosphatase 69 Total Protein 6.2 L Albumin 3.4 Will d/c pt with narcan kit and albuterol MDI.. Vital Signs - 24 hr 03/31/19 03/31/19 03/31/19 12:42 16:52 20:54 Temperature 98.0 F 98.1 F 97.7 F Pulse Rate 82 80 74 Respiratory 16 18 16 Rate Blood Pressure 137/81 135/75 120/79 04/01/19 04/01/19 04/01/19 00:29 03:29 06:33 Temperature 97.3 F L Pulse Rate 64 Respiratory 18 18 18 Rate Blood Pressure 107/71 - Physical Exam Results Vital Signs: Vital Signs Temperature 97.3 F L 04/01/19 06:33 Pulse Rate 64 04/01/19 06:33 Respiratory Rate 18 04/01/19 06:33 Blood Pressure 107/71 04/01/19 06:33 O2 Sat by Pulse Oximetry (%) - Treatment Hospital Course: Rehab Referral Accepted - Medication Discharge Medications: Ambulatory Orders Albuterol Sulfate Inhaler - [Ventolin HFA Inhaler -] 2 inhaler PO QID PRN - AMA Did Patient Leave Against Medical Advice: Yes
[2019-04-01 09:56] VITALS: BP 141/88; PULSE 89; TEMP 98.1
[2019-04-01] MEDS ORDERED: METHADONE (DETOX) 10 MG, METHADONE (DETOX) 5 MG PO ONE (10:00)
[2019-04-01] MEDS: BACITRACIN 15 GM TUBE TOPICAL OINTMENT TP SCH (11:19)
[2019-04-01] MEDS: NICOTINE 14 MG/24 HOURS TOPICAL PATCH TD SCH (11:19)
[2019-04-01] MEDS: PRENATAL VITAMINS W/ FOLIC ACID TABLET (FP) PO SCH (11:19)
[2019-04-02] MEDS ORDERED: METHADONE HCL 10 MG TABLET (FOR DETOX USE ONLY) PO ONE (10:00)
[2019-04-02] MEDS ORDERED: diazePAM 5 MG TABLET PO PRN (22:07)
[2019-04-03] MEDS ORDERED: METHADONE HCL 5 MG TABLET (FOR DETOX USE ONLY) PO ONE (06:00)
[2019-04-03] MEDS ORDERED: diazePAM 5 MG TABLET PO PRN (22:07)
== END 2019-04-01 09:38 | disposition left against medical advice (07) | DRG 770 ==
LOC: YASAS 20:04 → Y6N 22:04
PROVIDERS: ADMIT Allergy & Immunology; ATTEND Allergy & Immunology
PROC: HZ2ZZZZ Detoxification Services for Substance Abuse Treatment (ICD-10-PCS; principal; 2019-03-29)
DX: F11.23 Opioid dependence with withdrawal (principal); F12.10 Cannabis abuse, uncomplicated; F17.210 Nicotine dependence, cigarettes, uncomplicated; F32.9 Major depressive disorder, single episode, unspecified; F41.8 Other specified anxiety disorders; I10 Essential (primary) hypertension; J45.901 Unspecified asthma with (acute) exacerbation; E86.0 Dehydration; G47.00 Insomnia, unspecified; R79.89 Other specified abnormal findings of blood chemistry; S80.811A Abrasion, right lower leg, initial encounter; X58.XXXA Exposure to other specified factors, initial encounter; Y93.9 Activity, unspecified; Y92.89 Other specified places as the place of occurrence of the external cause; Y99.8 Other external cause status; Z87.442 Personal history of urinary calculi
CPT/HCPCS: 36415; 80053; 85027

== ENCOUNTER 2019-04-14 15:16 | Inpatient (IN) | payer OTHER ==
--- NOTE | 2019-04-14 16:52 | BHS.RME ---
Substance Use & Tx History - Substance Use History Opiates (Heroin) Substance amount: 5 bags Frequency of use: Daily Substance route: Inhalation (ex: sniffing or snorting) Date of Last Use: 04/14/19 (6 am) Cannabis Substance amount: 1 joint Frequency of use: Once a month Substance route: Inhalation (ex: sniffing or snorting) - Last Treatment Date of last treatment: 04/01/2019 Treatment type: Substance Use Disorder ([facility]) Where was last treatment: Detox Physical/Psych/Mental Status - Behavior General Behavior: Increased activity (restlessness, agitation) Eye Contact: Normal - Cooperativeness Cooperativeness: Cooperative - Physical Health Problems Is patient presently having any pain?: Yes (Whole body aches) Does patient presently have any injuries (include location): Yes ((R) periorbital area and sclera) Does patient currently have a fever: No Is patient : No COWS - Scale Resting Pulse: 0= AK 80 or Below Sweatin=Flushed/Facial Moisture Restless Observation: 0= Sits Still Pupil Size: 2= Moderately Dilated Bone or Joint Aches: 1= Mild Discomfort Runny Nose/ Eye Tearin= Runny Nose/Eyes GI Upset > 30mins: 2= Nausea/Diarrhea Tremor Observation: 2= Slight Tremor Visible Yawning Observation: 0= None Anxiety or Irritability: 1=Feels Anxious/Irritable Goose Flesh Skin: 0=Smooth Skin COWS Score: 12
[2019-04-14 16:56] VITALS: BMI 23.8
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
[2019-04-14] MEDS ORDERED: BISMUTH SUBSALICYLATE 524 MG/30 ML UD PO PRN (19:24)
[2019-04-14] MEDS ORDERED: NICOTINE POLACRILEX 2 MG GUM BUC PRN (19:24)
[2019-04-14] MEDS ORDERED: MAGNESIUM HYDROX 2400MG/30ML ORAL SUSPENSION 30 ML CUP PO PRN (19:24)
[2019-04-14] MEDS ORDERED: guaiFENesin 200 MG/10 ML 10 ML UNIT-DOSE CUPS PO PRN (19:24)
[2019-04-14] MEDS ORDERED: cloNIDine HCL 0.1 MG TABLET PO PRN (19:24)
[2019-04-14] MEDS ORDERED: ONDANSETRON *ODT* 4 MG TABLET SL PRN (19:24)
[2019-04-14] MEDS ORDERED: clonazePAM 0.5 MG TABLET PO PRN (19:24)
[2019-04-14] MEDS ORDERED: IBUPROFEN 400 MG TABLET (FP) PO PRN (19:24)
[2019-04-14] MEDS ORDERED: MENTHOL/PHENOL 1 EACH UD MM PRN (19:24)
[2019-04-14] MEDS ORDERED: MAGNESIUM CITRATE 300 ML BOTTLE PO PRN (19:24)
[2019-04-14] MEDS ORDERED: ACETAMINOPHEN 325 MG TABLET (FP) PO PRN ×2 (19:24)
[2019-04-14] MEDS ORDERED: MAG HYDROX/AL HYDROX/SIMETH 30 ML UNIT-DOSE CUP PO PRN (19:24)
[2019-04-14] MEDS: predniSONE 20 MG TABLET (UD) PO SCH (20:00)
[2019-04-14] MEDS: METHOCARBAMOL 500 MG TABLET PO PRN (20:01)
[2019-04-14] MEDS: ALBUTEROL SO4 0.083% IH SOL 2.5 MG/3 ML VIAL.NEB. NEB SCH (20:01)
[2019-04-14] MEDS: THIAMINE HCL 100 MG TABLET (FP) PO SCH (21:11)
[2019-04-14] MEDS: MELATONIN 5 MG TABLETS PO SCH (21:11)
[2019-04-14] MEDS ORDERED: METHADONE HCL 10 MG TABLET (FOR DETOX USE ONLY) PO ONE (22:00)
[2019-04-15] MEDS: ALBUTEROL SO4 0.083% IH SOL 2.5 MG/3 ML VIAL.NEB. NEB SCH ×2 (08:15→21:30)
--- NOTE | 2019-04-15 08:46 | CONSULT ---
[facility] Psychiatric Consult - Data Date of interview: 04/15/19 Admission source: [facility] Identifying data: Mr Beard is a 43 years old male, father of 2 children, unemployed with no source of income, homeless seeing detox tretment for opioid and cannabis Substance Abuse History: Reports history of heroin and marijuana use. Refer to addiction counselor's summary for further information Medical History: Significant for hypertension, bronchial asthma and a history of nephrolithiasis. Smokes 5 cigarette daily Psychiatric History: Patient is known for multiple previous admissions to this facility. Historical narrative remains consistent. Reports that his first psychiatric treatment occured in 2018 when he was admitted to [facility] in [place] for suicidal attempt via heroin overdose. Claims that he was given some kind of medication and discharged after 3 days without a referral. Told com writer that suicidal attempt stemmed from the fact he saw his life as a failure for not accomplishing anyrthing . However, according to EMR, he had been seeing psychiatrist in this facility since April 2017. He saw Dr Ma on 04/29/17 and he was prescribed Ambien. Denies currently receiving outpatient psychiatric treatment. At present, reports feeling depressed and sleeping poorly. However, denies S/H ideations. Told com writer that he was given Melatonin last night without much effect Physical/Sexual Abuse/Trauma History: Stressors : homelessness, separation from , chronic unemployment, financial constraints, inability to read + write, lack of vocational skills and absence of a support network. Mental Status Exam - Mental Status Exam Alert and Oriented to: Time, Place, Person Cognitive Function: Fair Patient Appearance: Disheveled Mood: Depressed Affect: Appropriate Patient Behavior: Cooperative Speech Pattern: Clear Voice Loudness: Normal Thought Process: Intact, Goal Oriented Hallucinations: Denies Homicidal Ideation: Denies Insight/Judgement: Poor Sleep: Poorly Appetite: Poor Muscle strength/Tone: Normal Gait/Station: Normal Psychiatric Findings - Problem List ([place] 1, 2,3) (1) Substance induced mood disorder Current Visit: Yes Status: Acute (2) Substance-induced sleep disorder Current Visit: Yes Status: Acute (3) Opioid dependence with withdrawal Current Visit: Yes Status: Acute (4) Cannabis use disorder, mild, abuse Current Visit: Yes Status: Acute (5) Abrasion Current Visit: No Status: Chronic Comment: (R) kwong - superficial (6) Asthma Current Visit: Yes Status: Chronic Qualifiers: Asthma severity: mild Asthma persistence: intermittent Asthma complication type: with acute exacerbation Qualified Code(s): J45.21 - Mild intermittent asthma with (acute) exacerbation Comment: Prednisone and albuterol to be continued, as prescribed. (7) HTN (hypertension) Current Visit: Yes Status: Chronic Qualifiers: Hypertension type: unspecified Qualified Code(s): I10 - Essential (primary) hypertension Comment: Denies HTN meds (8) Facial bone fracture Current Visit: Yes Status: Acute Qualifiers: Encounter type: subsequent encounter Facial bone/location: unspecified facial bone Fracture type: closed Fracture healing: with routine healing Qualified Code(s): S02.92XD - Unspecified fracture of facial bones, subsequent encounter for fracture with routine healing Comment: Periorbital ecchimosis w/ suborbital protrusion. Scleral redness. (9) History of renal stone Current Visit: No Status: Resolved - Initial Treatment Plan Initial Treatment Plan: 1) Start Belsomra 10 mg po HS prn for insomnia. 2) Continue inpatient detoxification
--- NOTE | 2019-04-15 09:45 | PN ---
[facility] COWS - Scale Resting Pulse: 0= [place] 80 or Below Sweatin= No chills or Flushing Restless Observation: 1= Difficult to Sit Still Pupil Size: 1= Pupils >than Normal Bone or Joint Aches: 1= Mild Discomfort Runny Nose/ Eye Tearin= Runny Nose/Eyes GI Upset > 30mins: 1= Stomach Cramp Tremor Observation of Outstretched Hands: 2= Slight Tremor Visible Yawning Observation: 1= 1-2x During Session Anxiety or Irritability: 2=Irritable/Anxious Goose Flesh Skin: 0=Smooth Skin COWS Score: 11 [facility] Progress Note (SOAP) Subjective: alert,irritable,anxious,interrupted sleep,tremor,pain in the body and back Objective: 04/15/19 09:43 Vital Signs Temperature 98.0 F 04/15/19 05:15 Pulse Rate 66 04/15/19 05:15 Respiratory Rate 18 04/15/19 05:15 Blood Pressure 123/73 04/15/19 05:15 O2 Sat by Pulse Oximetry (%) 04/15/19 09:43 lab pending Assessment: 04/15/19 09:43 withdrawal symptom Plan: continue detox methadone regimen and valium 10 mgs po q 4hrsprnfow withdrawalin 72 hrs
[2019-04-15] MEDS ORDERED: METHADONE HCL 5 MG TABLET (FOR DETOX USE ONLY) PO ONE (10:00)
[2019-04-15 10:22] LABS: HEMATOCRIT 39.2 % (35.4-49); HEMOGLOBIN 13.1 GM/dL (11.7-16.9); MCH 31.1 pg (25.7-33.7); MCHC 33.4 g/dl (32.0-35.9); MEAN CELL VOLUME 93.2 fl (80-96); MEAN PLT VOLUME 9.1 fl (7.5-11.1); PLATELET COUNT 245 K/MM3 (134-434); RDW 13.4 % (11.9-15.9); WHITE BLOOD COUNT 7.8 K/mm3 (4.0-10.0)
[2019-04-15 10:37] LABS: ALBUMIN 3.4 g/dl (3.4-5.0); BILIRUBIN,TOTAL 0.4 mg/dL (0.2-1); BLOOD UREA NITROGEN 17.6 mg/dL (7-18); CALCIUM 8.9 mg/dL (8.5-10.1); CREATININE 0.8 mg/dL (0.55-1.3); POTASSIUM 4.4 mmol/L (3.5-5.1); TOT PROT 6.8 g/dl (6.4-8.2)
[2019-04-15] MEDS: predniSONE 20 MG TABLET (UD) PO SCH (10:37)
[2019-04-15] MEDS: PRENATAL VITAMINS W/ FOLIC ACID TABLET (FP) PO SCH (10:38)
[2019-04-15] MEDS: ALBUTEROL SO4 8 GM HFA INHALER IH PRN ×2 (10:38→21:05)
[2019-04-15] MEDS: diazePAM 5 MG TABLET PO PRN ×2 (10:40→17:12)
[2019-04-15] MEDS: METHOCARBAMOL 500 MG TABLET PO PRN (12:54)
[2019-04-15] MEDS ORDERED: ALBUTEROL SO4 8 GM HFA INHALER IH PRN (20:00)
[2019-04-15] MEDS ORDERED: SUVOREXANT 10 MG TABLET PO PRN (22:00)
[2019-04-15] MEDS: THIAMINE HCL 100 MG TABLET (FP) PO SCH (22:47)
[2019-04-15] MEDS: MELATONIN 5 MG TABLETS PO SCH (22:48)
[2019-04-16] MEDS: diazePAM 5 MG TABLET PO PRN ×3 (08:59→22:07)
[2019-04-16] MEDS ORDERED: METHADONE HCL 10 MG TABLET (FOR DETOX USE ONLY) PO ONE (10:00)
--- NOTE | 2019-04-16 10:10 | PN ---
S COWS - Scale Resting Pulse: 0= [place] 80 or Below Sweatin= No chills or Flushing Restless Observation: 1= Difficult to Sit Still Pupil Size: 1= Pupils >than Normal Bone or Joint Aches: 1= Mild Discomfort Runny Nose/ Eye Tearin= Nasal Congestion GI Upset > 30mins: 1= Stomach Cramp Tremor Observation of Outstretched Hands: 1= Tremor [place], Not Seen Yawning Observation: 1= 1-2x During Session Anxiety or Irritability: 2=Irritable/Anxious Goose Flesh Skin: 0=Smooth Skin COWS Score: 9 S Progress Note (SOAP) Subjective: alert,irritable,anxious,interrupted sleep,tremor,pain in the body and back Objective: 04/16/19 10:07 Vital Signs Temperature 98 F 04/16/19 08:43 Pulse Rate 75 04/16/19 08:43 Respiratory Rate 16 04/16/19 08:43 Blood Pressure 112/68 04/16/19 08:43 O2 Sat by Pulse Oximetry (%) 04/16/19 10:08 Laboratory Last Values WBC 7.8 K/mm3 (4.0-10.0) 04/15/19 07:50 RBC 4.20 M/mm3 (4.00-5.60) 04/15/19 07:50 Hgb 13.1 GM/dL (11.7-16.9) 04/15/19 07:50 Hct 39.2 % (35.4-49) 04/15/19 07:50 MCV 93.2 fl (80-96) 04/15/19 07:50 MCH 31.1 pg (25.7-33.7) 04/15/19 07:50 MCHC 33.4 g/dl (32.0-35.9) 04/15/19 07:50 RDW 13.4 % (11.9-15.9) 04/15/19 07:50 Plt Count 245 K/MM3 (134-434) 04/15/19 07:50 MPV 9.1 fl (7.5-11.1) 04/15/19 07:50 Sodium 134 mmol/L (136-145) L 04/15/19 07:50 Potassium 4.4 mmol/L (3.5-5.1) 04/15/19 07:50 Chloride 100 mmol/L (98-107) 04/15/19 07:50 Carbon Dioxide 28 mmol/L (21-32) 04/15/19 07:50 Anion Gap 7 MMOL/L (8-16) L 04/15/19 07:50 BUN 17.6 mg/dL (7-18) 04/15/19 07:50 Creatinine 0.8 mg/dL (0.55-1.3) 04/15/19 07:50 Est GFR (CKD-EPI)AfAm 125.04 04/15/19 07:50 Est GFR (CKD-EPI)NonAf 107.88 04/15/19 07:50 Random Glucose 108 mg/dL (74-106) H 04/15/19 07:50 Calcium 8.9 mg/dL (8.5-10.1) 04/15/19 07:50 Total Bilirubin 0.4 mg/dL (0.2-1) 04/15/19 07:50 AST 16 U/L (15-37) 04/15/19 07:50 ALT 31 U/L (13-61) 04/15/19 07:50 Alkaline Phosphatase 70 U/L (45-117) 04/15/19 07:50 Total Protein 6.8 g/dl (6.4-8.2) 04/15/19 07:50 Albumin 3.4 g/dl (3.4-5.0) 04/15/19 07:50 Assessment: 04/16/19 10:08 withdrawal symptom Plan: continue detox methadone regimen,discharge in am
[2019-04-16] MEDS: PRENATAL VITAMINS W/ FOLIC ACID TABLET (FP) PO SCH (10:36)
[2019-04-16] MEDS: predniSONE 20 MG TABLET (UD) PO SCH (10:36)
[2019-04-16] MEDS: METHOCARBAMOL 500 MG TABLET PO PRN (10:38)
[2019-04-16] MEDS: NICOTINE 7 MG/24 HOURS TOPICAL PATCH TD SCH ×2 (12:14→14:06)
[2019-04-16] MEDS: THIAMINE HCL 100 MG TABLET (FP) PO SCH (22:05)
[2019-04-16] MEDS: MELATONIN 5 MG TABLETS PO SCH (22:17)
[2019-04-17] MEDS: METHOCARBAMOL 500 MG TABLET PO PRN (05:28)
[2019-04-17] MEDS ORDERED: METHADONE HCL 5 MG TABLET (FOR DETOX USE ONLY) PO ONE (06:00)
[2019-04-17 06:36] VITALS: BP 130/88; PULSE 68; TEMP 98
--- NOTE | 2019-04-17 08:14 | DS ---
[facility] Detox Discharge Summary Admission Date: 04/14/19 Discharge Date: 04/17/19 - History Present History: Alcohol Dependence, Cannabis Dependence - Physical Exam Results Vital Signs: Vital Signs Temperature 98.0 F 04/17/19 05:10 Pulse Rate 68 04/17/19 05:10 Respiratory Rate 18 04/17/19 05:10 Blood Pressure 130/88 04/17/19 05:10 O2 Sat by Pulse Oximetry (%) Pertinent Admission Physical Exam Findings: Vital Signs Temperature 98.0 F 04/17/19 05:10 Pulse Rate 68 04/17/19 05:10 Respiratory Rate 18 04/17/19 05:10 Blood Pressure 130/88 04/17/19 05:10 O2 Sat by Pulse Oximetry (%) Laboratory Tests 04/15/19 04/15/19 07:50 07:50 WBC 7.8 RBC 4.20 Hgb 13.1 Hct 39.2 MCV 93.2 MCH 31.1 MCHC 33.4 RDW 13.4 Plt Count 245 MPV 9.1 Sodium 134 L Potassium 4.4 Chloride 100 Carbon Dioxide 28 Anion Gap 7 L BUN 17.6 Creatinine 0.8 Est GFR (CKD-EPI)AfAm 125.04 Est GFR (CKD-EPI)NonAf 107.88 Random Glucose 108 H Calcium 8.9 Total Bilirubin 0.4 AST 16 ALT 31 Alkaline Phosphatase 70 Total Protein 6.8 Albumin 3.4 aaox3 ambulating no acute distress lungs CTA - Treatment Hospital Course: Detox Protocol Followed, Detoxed Safely, Responded well, Discharged Condition Good, Rehab Referral Accepted - Medication Discharge Medications: Ambulatory Orders Albuterol Sulfate Inhaler - [Ventolin HFA Inhaler -] 2 inhaler PO QID PRN #1 inhaler 04/01/19 - Diagnosis (1) Cannabis use disorder, mild, abuse Current Visit: Yes Status: Acute (2) Facial bone fracture Current Visit: Yes Status: Acute Qualifiers: Encounter type: subsequent encounter Facial bone/location: unspecified facial bone Fracture type: closed Fracture healing: with routine healing Qualified Code(s): S02.92XD - Unspecified fracture of facial bones, subsequent encounter for fracture with routine healing (3) Opioid dependence with withdrawal Current Visit: Yes Status: Acute (4) Substance induced mood disorder Current Visit: Yes Status: Acute (5) Substance-induced sleep disorder Current Visit: Yes Status: Acute (6) Asthma Current Visit: Yes Status: Chronic Qualifiers: Asthma severity: mild Asthma persistence: intermittent Asthma complication type: with acute exacerbation Qualified Code(s): J45.21 - Mild intermittent asthma with (acute) exacerbation (7) HTN (hypertension) Current Visit: Yes Status: Chronic Qualifiers: Hypertension type: unspecified Qualified Code(s): I10 - Essential (primary) hypertension (8) Nicotine dependence Current Visit: Yes Status: Chronic Qualifiers: Nicotine product type: cigarettes Substance use status: uncomplicated Qualified Code(s): F17.210 - Nicotine dependence, cigarettes, uncomplicated (9) Alcohol dependence with uncomplicated withdrawal Current Visit: No Status: Acute (10) Dehydration Current Visit: No Status: Acute (11) Heroin withdrawal Current Visit: No Status: Acute (12) Hyperglycemia Current Visit: No Status: Acute (13) Insomnia Current Visit: No Status: Acute (14) Abrasion Current Visit: No Status: Chronic (15) Alcohol dependence Current Visit: No Status: Chronic Qualifiers: Substance use status: uncomplicated Qualified Code(s): F10.20 - Alcohol dependence, uncomplicated (16) Cannabis dependence Current Visit: No Status: Chronic (17) Cannabis dependence Current Visit: No Status: Chronic (18) Cannabis dependence, uncomplicated Current Visit: No Status: Chronic (19) Depression (emotion) Current Visit: No Status: Chronic Qualifiers: Depression Type: unspecified Qualified Code(s): F32.9 - Major depressive disorder, single episode, unspecified (20) Drug-induced mood disorder Current Visit: No Status: Chronic (21) History of asthma Current Visit: No Status: Chronic (22) Insomnia Current Visit: No Status: Chronic Qualifiers: Insomnia type: unspecified Qualified Code(s): G47.00 - Insomnia, unspecified (23) Kidney stones Current Visit: No Status: Chronic (24) Opiate dependence Current Visit: No Status: Chronic Qualifiers: Substance use status: uncomplicated Qualified Code(s): F11.20 - Opioid dependence, uncomplicated (25) Opioid dependence Current Visit: No Status: Chronic Qualifiers: Substance use status: uncomplicated Qualified Code(s): F11.20 - Opioid dependence, uncomplicated (26) History of renal stone Current Visit: No Status: Resolved - AMA Did Patient Leave Against Medical Advice: No
== END 2019-04-17 09:08 | disposition home or self-care (01) | DRG 773 ==
LOC: YASAS 15:16 → Y6N 19:12
PROVIDERS: ADMIT Allergy & Immunology; ATTEND Allergy & Immunology
PROC: HZ2ZZZZ Detoxification Services for Substance Abuse Treatment (ICD-10-PCS; principal; 2019-04-14)
DX: F11.23 Opioid dependence with withdrawal (principal); F12.20 Cannabis dependence, uncomplicated; F17.210 Nicotine dependence, cigarettes, uncomplicated; F19.24 Other psychoactive substance dependence with psychoactive substance-induced mood disorder; F19.282 Other psychoactive substance dependence with psychoactive substance-induced sleep disorder; F32.9 Major depressive disorder, single episode, unspecified; I10 Essential (primary) hypertension; J45.21 Mild intermittent asthma with (acute) exacerbation; E86.0 Dehydration; R73.9 Hyperglycemia, unspecified; G47.00 Insomnia, unspecified; S02.92XD Unspecified fracture of facial bones, subsequent encounter for fracture with routine healing; Y04.2XXD Assault by strike against or bumped into by another person, subsequent encounter; Z86.59 Personal history of other mental and behavioral disorders; Z87.442 Personal history of urinary calculi; Z56.0 Unemployment, unspecified; Z59.0 Homelessness
CPT/HCPCS: 36415; 80053; 85027; J0735